=== PATIENT | male | born 1935 | race Caucasian/White ===

== ENCOUNTER → 2016-12-05 | Outpatient (CLI) | payer MEDICARE ==
[~2016-12-05] MED LIST: /GLIM2TA; AMBI5TAB; ASPI81TA63; ATEN25TA; BABY81CH; FURO20TA2; GLUC850T; NITR0.4S; SIMV80TA
[2016-12-05 07:18] LABS: CALCIUM LEVEL 8.6 MG/DL (8.8-10.2); CREATININE FOR GFR 1.72 MG/DL (0.70-1.30); POTASSIUM SERUM 4.3 MEQ/L (3.5-5.1)
== END ==
LOC: M LAB 06:23
PROVIDERS: ATTEND Internal Medicine Cardiovascular Disease
DX: N28.9 Disorder of kidney and ureter, unspecified (principal); I10 Essential (primary) hypertension

== ENCOUNTER → 2017-01-23 | Outpatient (CLI) | payer MEDICARE, OTHER ==
[2017-01-23 06:37] LABS: BASO % 0.5 % (0.0-1.0); EOS # 0.1 K/mm3 (0.0-0.50); LARGE UNSTAINED CELL # 0.2 K/mm3 (0.0-0.4); LARGE UNSTAINED CELL % 2.4 % (0.0-4.0); LYMPH # 1.1 K/mm3 (1.5-4.5); LYMPH % 13.9 % (24.0-44.0); MEAN CORPUSCULAR HGB CONC 32.5 g/dl (32.0-36.5); MEAN CORPUSCULAR VOLUME 89.3 fl (80.0-96.0); MONO # 0.6 K/mm3 (0.0-0.8); MONO % 8.9 % (0.0-5.0); NEUTROPHILS % 72.2 % (36.0-66.0); PLATELET COUNT, AUTOMATED 178 k/mm3 (150-450); RED CELL DISTRIBUTION WIDTH 14.7 % (11.5-14.5); WHITE BLOOD COUNT 6.9 K/mm3 (4.0-10.0)
[2017-01-23 07:04] LABS: MAGNESIUM LEVEL 2.2 MG/DL (1.8-2.4); PERCENT SATURATION 14.8 % (19.7-37.4)
== END ==
LOC: M LAB 06:06
PROVIDERS: ATTEND Family Medicine
DX: D50.9 Iron deficiency anemia, unspecified (principal); E11.9 Type 2 diabetes mellitus without complications; I50.30 Unspecified diastolic (congestive) heart failure; E55.9 Vitamin D deficiency, unspecified

== ENCOUNTER → 2017-06-05 | Outpatient (CLI) | payer MEDICARE, OTHER ==
[2017-06-05 06:57] LABS: BASO % 0.4 % (0.0-1.0); EOS # 0.2 K/mm3 (0.0-0.50); EOS % 2.6 % (0.0-3.0); LARGE UNSTAINED CELL # 0.2 K/mm3 (0.0-0.4); LARGE UNSTAINED CELL % 2.4 % (0.0-4.0); LYMPH # 1.2 K/mm3 (1.5-4.5); LYMPH % 14.5 % (24.0-44.0); MEAN CORPUSCULAR HEMOGLOBIN 28.8 pg (27.0-33.0); MEAN CORPUSCULAR HGB CONC 32.6 g/dl (32.0-36.5); MEAN CORPUSCULAR VOLUME 88.3 fl (80.0-96.0); MONO # 0.7 K/mm3 (0.0-0.8); MONO % 9.5 % (0.0-5.0); NEUTROPHILS # 5.1 K/mm3 (1.8-7.7); NEUTROPHILS % 70.5 % (36.0-66.0); PLATELET COUNT, AUTOMATED 185 k/mm3 (150-450); RED CELL DISTRIBUTION WIDTH 15.2 % (11.5-14.5); WHITE BLOOD COUNT 7.2 K/mm3 (4.0-10.0)
[2017-06-05 07:26] LABS: ALBUMIN 3.6 GM/DL (3.2-5.2); ALBUMIN/GLOBULIN RATIO 1.16 (1.00-1.93); BILIRUBIN,TOTAL 0.7 MG/DL (0.2-1.0); CALCIUM LEVEL 8.7 MG/DL (8.8-10.2); CREATININE FOR GFR 1.4 MG/DL (0.70-1.30); GLOMERULAR FILTRATION RATE 51.9 (>35); PERCENT SATURATION 12.5 % (19.7-37.4); POTASSIUM SERUM 4.1 MEQ/L (3.5-5.1); TOTAL PROTEIN 6.7 GM/DL (6.4-8.2)
== END ==
LOC: M LAB 06:09
PROVIDERS: ATTEND Family Medicine
DX: N18.3 Chronic kidney disease, stage 3 (moderate) (principal); E11.9 Type 2 diabetes mellitus without complications

== ENCOUNTER → 2017-06-12 | Outpatient (REF) | payer OTHER | LOC: M SFHCPLAZ 13:30 | PROVIDERS: ATTEND Family Medicine | DX: N40.1 Benign prostatic hyperplasia with lower urinary tract symptoms (principal) ==

== ENCOUNTER → 2018-01-24 | Outpatient (CLI) | payer OTHER ==
[2018-01-24 07:06] LABS: BASO % 0.3 % (0.0-1.0); EOS # 0.2 10^3/uL (0.0-0.50); EOS % 2.5 % (0.0-3.0); HEMATOCRIT 37.9 % (42.0-52.0); IMMATURE GRANULOCYTE % 0.3 % (0-3.0); LYMPH # 1.2 10^3/uL (1.5-4.5); LYMPH % 18.1 % (24.0-44.0); MEAN CORPUSCULAR HGB CONC 31.7 g/dl (32.0-36.5); MEAN CORPUSCULAR VOLUME 91.5 fl (80.0-96.0); MONO # 0.9 10^3/uL (0.0-0.8); MONO % 13.8 % (0.0-5.0); NEUTROPHILS # 4.2 10^3/uL (1.8-7.7); PLATELET COUNT, AUTOMATED 157 10^3/uL (150-450); RED BLOOD COUNT 4.14 10^6/uL (4.30-6.10); WHITE BLOOD COUNT 6.4 10^3/uL (4.0-10.0)
[2018-01-24 07:13] LABS: ESTIMATED AVERAGE GLUCOSE 174 MG/DL (60-110); HEMOGLOBIN A1c 7.7 %
[2018-01-24 07:24] LABS: C REACTIVE PROTEIN QUANTITATIV 0.39 MG/DL (0.00-0.30); CHOLESTEROL LEVEL 116 MG/DL (<200); CHOLESTEROL RISK RATIO 2.761 (<5); CPK CREATINE PHOSPHOKINASE 88 U/L (39-308); FERRITIN 35 NG/ML (26-388); HDL CHOLESTEROL 42 MG/DL (>40); IRON (FE) 52 UG/DL (65-175); LDL CHOLESTEROL 54.2 MG/DL (<100); NON-HDL-C 74 MG/DL; PERCENT SATURATION 14.2 % (19.7-50.0); PSA SCREENING 1.21 NG/ML (< 4.0); TOTAL IRON BINDING CAPACITY 367 UG/DL (250-450); TRIGLYCERIDES LEVEL 99 MG/DL (<150)
== END ==
LOC: M LAB 06:01
DX: D50.9 Iron deficiency anemia, unspecified (principal); E11.9 Type 2 diabetes mellitus without complications; N40.1 Benign prostatic hyperplasia with lower urinary tract symptoms
CPT/HCPCS: 82550

== ENCOUNTER → 2018-02-28 | Outpatient (REF) | payer OTHER | LOC: M SFHCLERA 09:35 | DX: L57.0 Actinic keratosis (principal) | CPT/HCPCS: 88305 ==

== ENCOUNTER → 2018-05-06 | Outpatient (CLI) | payer OTHER ==
[2018-05-06 06:43] LABS: BASO % 0.2 % (0.0-1.0); EOS # 0.1 10^3/uL (0.0-0.50); EOS % 1.4 % (0.0-3.0); HEMATOCRIT 36.7 % (42.0-52.0); HEMOGLOBIN 11.9 g/dl (13.5-17.5); IMMATURE GRANULOCYTE % 0.5 % (0-3.0); LYMPH # 1.3 10^3/uL (1.5-4.5); LYMPH % 15.5 % (24.0-44.0); MEAN CORPUSCULAR HEMOGLOBIN 29.2 pg (27.0-33.0); MEAN CORPUSCULAR HGB CONC 32.4 g/dl (32.0-36.5); MEAN CORPUSCULAR VOLUME 90.2 fl (80.0-96.0); MONO # 0.7 10^3/uL (0.0-0.8); MONO % 8.9 % (0.0-5.0); NEUTROPHILS # 5.9 10^3/uL (1.8-7.7); NEUTROPHILS % 73.5 % (36.0-66.0); PLATELET COUNT, AUTOMATED 169 10^3/uL (150-450); RED BLOOD COUNT 4.07 10^6/uL (4.30-6.10); RED CELL DISTRIBUTION WIDTH 16.2 % (11.5-14.5); RETIC HEMOGLOBIN EQUIVALENT 31.4 pg (24-36); RETICULOCYTE # 62.3 10^9/L (17-77); RETICULOCYTE % 1.5 % (0.5-1.5); WHITE BLOOD COUNT 8.1 10^3/uL (4.0-10.0)
[2018-05-06 07:06] LABS: ALBUMIN 3.4 GM/DL (3.2-5.2); ALBUMIN/GLOBULIN RATIO 0.94 (1.00-1.93); ALKALINE PHOSPHATASE 79 U/L (45-117); ALT/SGPT 23 U/L (12-78); ANION GAP 7 MEQ/L (8-16); AST/SGOT 15 U/L (7-37); BILIRUBIN,TOTAL 0.9 MG/DL (0.2-1.0); BLOOD UREA NITROGEN 33 MG/DL (7-18); CALCIUM LEVEL 8.9 MG/DL (8.8-10.2); CARBON DIOXIDE LEVEL 30 MEQ/L (21-32); CHLORIDE LEVEL 106 MEQ/L (98-107); CREATININE FOR GFR 1.53 MG/DL (0.70-1.30); GLOMERULAR FILTRATION RATE 46.7 (>35); GLUCOSE, FASTING 108 MG/DL (70-100); MAGNESIUM LEVEL 2.1 MG/DL (1.8-2.4); POTASSIUM SERUM 3.7 MEQ/L (3.5-5.1); SODIUM LEVEL 143 MEQ/L (136-145)
[2018-05-06 10:41] LABS: TOTAL 25(OH) VITAMIN D 27.2 NG/ML (30.0-100.0)
[2018-05-06 10:42] LABS: PTH INTACT 67.5 PG/ML (18.5-88.0)
[2018-05-06 11:33] LABS: ESTIMATED AVERAGE GLUCOSE 171 MG/DL (60-110); HEMOGLOBIN A1c 7.6 %
== END ==
LOC: M LAB 06:06
DX: D50.9 Iron deficiency anemia, unspecified (principal); N18.3 Chronic kidney disease, stage 3 (moderate); E11.9 Type 2 diabetes mellitus without complications
CPT/HCPCS: 83735

== ENCOUNTER → 2018-09-03 | Outpatient (CLI) | payer OTHER ==
[2018-09-03 07:00] LABS: BASO % 0.3 % (0.0-1.0); EOS # 0.1 10^3/uL (0.0-0.50); HEMATOCRIT 38.8 % (42.0-52.0); HEMOGLOBIN 12.3 g/dl (13.5-17.5); IMMATURE GRANULOCYTE % 0.5 % (0-3.0); LYMPH % 15.7 % (24.0-44.0); MEAN CORPUSCULAR HEMOGLOBIN 28.9 pg (27.0-33.0); MEAN CORPUSCULAR HGB CONC 31.7 g/dl (32.0-36.5); MEAN CORPUSCULAR VOLUME 91.1 fl (80.0-96.0); MONO # 0.9 10^3/uL (0.0-0.8); MONO % 13.4 % (0.0-5.0); NEUTROPHILS # 4.5 10^3/uL (1.8-7.7); NEUTROPHILS % 68.1 % (36.0-66.0); PLATELET COUNT, AUTOMATED 151 10^3/uL (150-450); RED BLOOD COUNT 4.26 10^6/uL (4.30-6.10); RED CELL DISTRIBUTION WIDTH 15.9 % (11.5-14.5); RETIC HEMOGLOBIN EQUIVALENT 32.3 pg (24-36); RETICULOCYTE # 68.6 10^9/L (17-77); RETICULOCYTE % 1.6 % (0.5-1.5); WHITE BLOOD COUNT 6.6 10^3/uL (4.0-10.0)
[2018-09-03 07:01] LABS: HEMATOCRIT 38.8 % (42.0-52.0)
[2018-09-03 07:15] LABS: ESTIMATED AVERAGE GLUCOSE 177 MG/DL (60-110); HEMOGLOBIN A1c 7.8 %
[2018-09-03 07:32] LABS: ALBUMIN 3.4 GM/DL (3.2-5.2); ALBUMIN/GLOBULIN RATIO 0.97 (1.00-1.93); ALKALINE PHOSPHATASE 88 U/L (45-117); ALT/SGPT 21 U/L (12-78); ANION GAP 7 MEQ/L (8-16); AST/SGOT 17 U/L (7-37); BILIRUBIN,TOTAL 0.8 MG/DL (0.2-1.0); BLOOD UREA NITROGEN 29 MG/DL (7-18); CALCIUM LEVEL 8.4 MG/DL (8.8-10.2); CARBON DIOXIDE LEVEL 31 MEQ/L (21-32); CHLORIDE LEVEL 105 MEQ/L (98-107); CREATININE FOR GFR 1.54 MG/DL (0.70-1.30); GLOMERULAR FILTRATION RATE 46.4 (>35); GLUCOSE, FASTING 106 MG/DL (70-100); SODIUM LEVEL 143 MEQ/L (136-145); TOTAL PROTEIN 6.9 GM/DL (6.4-8.2)
[2018-09-03 08:07] LABS: TOTAL 25(OH) VITAMIN D 93.4 NG/ML (30.0-100.0)
[2018-09-03 10:44] LABS: PRETREATED FOLATE FOR RBCFOL 18.2 NG/ML; RBC FOLATE 985.1 NG/ML (280-791)
== END ==
LOC: M LAB 06:04
DX: D50.9 Iron deficiency anemia, unspecified (principal); N18.3 Chronic kidney disease, stage 3 (moderate); E11.9 Type 2 diabetes mellitus without complications
CPT/HCPCS: 82607

== ENCOUNTER → 2018-11-08 | Outpatient (CLI) | payer OTHER ==
--- NOTE | 2018-11-08 12:37 | REP ---
LEFT TIBIA/FIBULA, FOUR VIEWS: HISTORY: Pain. There is no acute fracture or dislocation. The joint spaces are normal in appearance. An osteophyte is present on the inferior calcaneus. Calcification is present posterior to the calcaneus. This represents tendon calcification. IMPRESSION: There is no acute fracture or dislocation. Electronically Signed by Klever Garcia MD 11/08/2018 12:45 P
== END ==
LOC: M WUC 09:54
PROVIDERS: ATTEND Physician Assistant
DX: M79.662 Pain in left lower leg (principal); M65.862 Other synovitis and tenosynovitis, left lower leg

== ENCOUNTER → 2019-01-22 | Outpatient (CLI) | payer MEDICARE, OTHER ==
[2019-01-22 06:58] LABS: BASO % 0.3 % (0.0-1.0); EOS # 0.2 10^3/uL (0.0-0.50); HEMATOCRIT 39.8 % (42.0-52.0); HEMOGLOBIN 12.8 g/dl (13.5-17.5); LYMPH # 1.1 10^3/uL (1.5-4.5); LYMPH % 14.3 % (24.0-44.0); MEAN CORPUSCULAR HEMOGLOBIN 29.3 pg (27.0-33.0); MEAN CORPUSCULAR HGB CONC 32.2 g/dl (32.0-36.5); MEAN CORPUSCULAR VOLUME 91.1 fl (80.0-96.0); MONO % 13.5 % (0.0-5.0); NEUTROPHILS # 5.1 10^3/uL (1.8-7.7); NEUTROPHILS % 69.5 % (36.0-66.0); PLATELET COUNT, AUTOMATED 156 10^3/uL (150-450); RED BLOOD COUNT 4.37 10^6/uL (4.30-6.10); WHITE BLOOD COUNT 7.4 10^3/uL (4.0-10.0)
[2019-01-22 07:38] LABS: ALBUMIN 3.6 GM/DL (3.2-5.2); BILIRUBIN,TOTAL 0.9 MG/DL (0.2-1.0); CALCIUM LEVEL 8.4 MG/DL (8.8-10.2); CREATININE FOR GFR 1.56 MG/DL (0.70-1.30); GLOMERULAR FILTRATION RATE 45.7 (>35); MAGNESIUM LEVEL 2.3 MG/DL (1.8-2.4); POTASSIUM SERUM 4.2 MEQ/L (3.5-5.1); PROSTATIC SPECIFIC AG MONITOR 1.28 NG/ML (< 4.00); THYROID STIMULATING HORMONE 2.82 uIU/ML (0.358-3.740); TOTAL PROTEIN 7.1 GM/DL (6.4-8.2)
== END ==
LOC: M LAB 06:18
PROVIDERS: ATTEND Family Medicine
DX: N18.3 Chronic kidney disease, stage 3 (moderate) (principal); N40.1 Benign prostatic hyperplasia with lower urinary tract symptoms; E78.2 Mixed hyperlipidemia; D50.9 Iron deficiency anemia, unspecified

== ENCOUNTER → 2019-05-12 | Outpatient (CLI) | payer MEDICARE ==
[~2019-05-12] MED LIST changes: -/GLIM2TA; +AMAR1TAB5
[2019-05-12 06:45] LABS: BASO % 0.3 % (0.0-1.0); EOS # 0.2 10^3/uL (0.0-0.50); EOS % 2.4 % (0.0-3.0); HEMATOCRIT 38.8 % (42.0-52.0); HEMOGLOBIN 12.4 g/dl (13.5-17.5); LYMPH # 0.9 10^3/uL (1.5-4.5); LYMPH % 13.5 % (24.0-44.0); MEAN CORPUSCULAR HEMOGLOBIN 28.9 pg (27.0-33.0); MEAN CORPUSCULAR VOLUME 90.4 fl (80.0-96.0); MONO # 0.9 10^3/uL (0.0-0.8); MONO % 12.9 % (0.0-5.0); NEUTROPHILS # 4.7 10^3/uL (1.8-7.7); NEUTROPHILS % 70.4 % (36.0-66.0); PLATELET COUNT, AUTOMATED 161 10^3/uL (150-450); RED BLOOD COUNT 4.29 10^6/uL (4.30-6.10); WHITE BLOOD COUNT 6.7 10^3/uL (4.0-10.0)
[2019-05-12 07:18] LABS: ALBUMIN 3.5 GM/DL (3.2-5.2); BILIRUBIN,TOTAL 0.8 MG/DL (0.2-1.0); CALCIUM LEVEL 8.5 MG/DL (8.8-10.2); CHOLESTEROL RISK RATIO 3.19 (<5); CREATININE FOR GFR 1.69 MG/DL (0.70-1.30); GLOMERULAR FILTRATION RATE 41.6 (>35); TOTAL PROTEIN 7.2 GM/DL (6.4-8.2)
[2019-05-12 11:43] LABS: PTH INTACT 59.6 PG/ML (18.5-88.0)
== END ==
LOC: M LAB 06:06
PROVIDERS: ATTEND Family Medicine
DX: E53.8 Deficiency of other specified B group vitamins (principal); E78.2 Mixed hyperlipidemia; N18.3 Chronic kidney disease, stage 3 (moderate)

== ENCOUNTER → 2019-11-03 | Outpatient (CLI) | payer MEDICARE ==
[2019-11-03 06:48] LABS: BASO % 0.2 % (0.0-1.0); EOS # 0.2 10^3/uL (0.0-0.5); EOS % 2.4 % (0.0-3.0); HEMATOCRIT 30.2 % (42.0-52.0); LYMPH # 0.8 10^3/uL (1.5-5.0); LYMPH % 11.7 % (24.0-44.0); MEAN CORPUSCULAR HEMOGLOBIN 28.3 pg (27.0-33.0); MEAN CORPUSCULAR HGB CONC 29.8 g/dl (32.0-36.5); MONO # 0.9 10^3/uL (0.0-0.8); MONO % 13.1 % (0.0-5.0); NEUTROPHILS # 4.8 10^3/uL (1.5-8.5); NEUTROPHILS % 72.1 % (36.0-66.0); PLATELET COUNT, AUTOMATED 187 10^3/uL (150-450); RED BLOOD COUNT 3.18 10^6/uL (4.30-6.10); WHITE BLOOD COUNT 6.6 10^3/uL (4.0-10.0)
[2019-11-03 07:02] LABS: HEMOGLOBIN A1c 6.9 %
[2019-11-03 07:28] LABS: ALBUMIN 3.3 GM/DL (3.2-5.2); BILIRUBIN,TOTAL 0.9 MG/DL (0.2-1.0); CALCIUM LEVEL 8.8 MG/DL (8.8-10.2); CREATININE FOR GFR 1.69 MG/DL (0.70-1.30); FREE T4 0.96 NG/DL (0.76-1.46); GLOMERULAR FILTRATION RATE 41.6 (>35); MAGNESIUM LEVEL 2.4 MG/DL (1.8-2.4); POTASSIUM SERUM 4.1 MEQ/L (3.5-5.1); THYROID STIMULATING HORMONE 4.01 uIU/ML (0.358-3.740); TOTAL PROTEIN 6.7 GM/DL (6.4-8.2)
== END ==
LOC: M LAB 06:06
PROVIDERS: ATTEND Family Medicine
DX: E53.8 Deficiency of other specified B group vitamins (principal); E78.2 Mixed hyperlipidemia; N18.3 Chronic kidney disease, stage 3 (moderate); E11.9 Type 2 diabetes mellitus without complications

== ENCOUNTER → 2019-11-06 | Outpatient (REF) | payer MEDICARE ==
[~2019-11-06] MED LIST changes: +ATOR80TA59 PO; +CARV6.25 PO; +COLA100C5 PO; +DRIS50003 PO; +FLOM0.4C39 PO; +FURO40TA2 PO; +GLIM4TAB3 PO; +METF500T13 PO; +MOME0.1O TOP; +NITR4TASL SL; +OXYB10TA2 PO; +PANT40TA3 PO; +POLY150C4 PO; +SERT50TA29 PO; +SIMB1SUS OU; +TIMO0.5S42 OU; +VENO20IN IV; +VITA100018 PO; +VITA50005 PO; +XALA0.007 OU; +XARE15TA PO
[2019-11-06 14:12] LABS: BASO % 0.2 % (0.0-1.0); EOS # 0.2 10^3/uL (0.0-0.5); EOS % 1.9 % (0.0-3.0); HEMATOCRIT 28.4 % (42.0-52.0); HEMOGLOBIN 8.5 g/dl (13.5-17.5); LYMPH % 11.8 % (24.0-44.0); MEAN CORPUSCULAR HEMOGLOBIN 28.2 pg (27.0-33.0); MEAN CORPUSCULAR HGB CONC 29.9 g/dl (32.0-36.5); MEAN CORPUSCULAR VOLUME 94.4 fl (80.0-96.0); MONO # 1.1 10^3/uL (0.0-0.8); NEUTROPHILS # 6.3 10^3/uL (1.5-8.5); NEUTROPHILS % 72.4 % (36.0-66.0); PLATELET COUNT, AUTOMATED 199 10^3/uL (150-450); RED BLOOD COUNT 3.01 10^6/uL (4.30-6.10); WHITE BLOOD COUNT 8.7 10^3/uL (4.0-10.0)
[2019-11-06 14:47] LABS: ALBUMIN 3.6 GM/DL (3.2-5.2); BLOOD UREA NITROGEN 34 MG/DL (7-18); CALCIUM LEVEL 8.3 MG/DL (8.8-10.2); CARBON DIOXIDE LEVEL 28 MEQ/L (21-32); CHLORIDE LEVEL 108 MEQ/L (98-107); CREATININE FOR GFR 1.68 MG/DL (0.70-1.30); GLOMERULAR FILTRATION RATE 41.9 (>35); GLUCOSE, FASTING 81 MG/DL (70-100); IRON (FE) 25 UG/DL (65-175); NT-PRO BNP 1940 PG/ML (<450); PERCENT SATURATION 5.2 % (19.7-50.0); PHOSPHORUS LEVEL 3.6 MG/DL (2.5-4.9); POTASSIUM SERUM 3.7 MEQ/L (3.5-5.1); SODIUM LEVEL 143 MEQ/L (136-145); TOTAL IRON BINDING CAPACITY 481 UG/DL (250-450); TOTAL PROTEIN 7.1 GM/DL (6.4-8.2)
[2019-11-11 11:41] LABS: ALBUMIN % 56.3 % (55.8-66.1); ALPHA-1-GLOBULIN % 5.3 % (2.9-4.9); ALPHA-1-GLOBULINS 0.38 GM/DL (0.17-0.41); ALPHA-2-GLOBULINS 0.92 GM/DL (0.42-0.99); ALPHA-2-GLOBULINS % 12.9 % (7.1-11.8); BETA-1-GLOBULINS 0.51 GM/DL (0.28-0.60); BETA-1-GLOBULINS % 7.2 % (4.7-7.2); BETA-2-GLOBULINS 0.36 GM/DL (0.19-0.55); BETA-2-GLOBULINS % 5.1 % (3.2-6.5); GAMMA GLOBULIN % 13.2 % (11.1-18.8); GAMMA GLOBULINS 0.94 GM/DL (0.65-1.58)
== END ==
LOC: M SFHCPLAZ 13:23
PROVIDERS: ATTEND Family Medicine
DX: D50.9 Iron deficiency anemia, unspecified (principal); I50.30 Unspecified diastolic (congestive) heart failure
CPT/HCPCS: 36415; 80069; 83010; 83550; 83880; 84165; 85025; 85046; 86335; G0463

== ENCOUNTER 2019-11-07 09:03 | Outpatient (CLI) | payer MEDICARE ==
[2019-11-07] VITALS (7 sets, daily range): BP systolic 112–147; BP diastolic 58–65
[~2019-11-07 09:03] MED LIST changes: -ATOR80TA59 PO; -CARV6.25 PO; -COLA100C5 PO; -DRIS50003 PO; -FLOM0.4C39 PO; -FURO40TA2 PO; -GLIM4TAB3 PO; -METF500T13 PO; -MOME0.1O TOP; -NITR4TASL SL; -OXYB10TA2 PO; -PANT40TA3 PO; -POLY150C4 PO; -SERT50TA29 PO; -SIMB1SUS OU; -TIMO0.5S42 OU; -VENO20IN IV; -VITA100018 PO; -VITA50005 PO; -XALA0.007 OU; -XARE15TA PO
[2019-11-07] MEDS ORDERED: IRON SUCROSE 25 MG in NS 25 ML IV ONE (10:00)
[2019-11-07] MEDS ORDERED: IRON SUCROSE 475 MG in NS 250 ML IV ONE (11:00)
== END 2019-11-07 16:10 | disposition home or self-care (01) ==
LOC: M OPCLI4PV 09:03 → M MSPAV 09:04 → M OPCLI4PV 16:10
PROVIDERS: ATTEND Family Medicine
DX: D50.9 Iron deficiency anemia, unspecified (principal)

== ENCOUNTER 2019-11-10 14:03 | Inpatient (IN) | payer MEDICARE ==
[~2019-11-10] VITALS: Ht 172.7 cm; Wt 96.1 kg
[~2019-11-10 14:03] MED LIST changes: -ATOR80TA59 PO; -CARV6.25 PO; -COLA100C5 PO; -DRIS50003 PO; -FLOM0.4C39 PO; -FURO40TA2 PO; -GLIM4TAB3 PO; -METF500T13 PO; -MOME0.1O TOP; -NITR4TASL SL; -OXYB10TA2 PO; -PANT40TA3 PO; -POLY150C4 PO; -SERT50TA29 PO; -SIMB1SUS OU; -TIMO0.5S42 OU; -VENO20IN IV; -VITA100018 PO; -VITA50005 PO; -XALA0.007 OU; -XARE15TA PO
[2019-11-10 14:46] LABS: BASO % 0.2 % (0.0-1.0); EOS # 0.2 10^3/uL (0.0-0.5); EOS % 2.2 % (0.0-3.0); HEMATOCRIT 26.1 % (42.0-52.0); HEMOGLOBIN 7.7 g/dl (13.5-17.5); LYMPH # 1.1 10^3/uL (1.5-5.0); LYMPH % 12.3 % (24.0-44.0); MEAN CORPUSCULAR HEMOGLOBIN 28.4 pg (27.0-33.0); MEAN CORPUSCULAR HGB CONC 29.5 g/dl (32.0-36.5); MEAN CORPUSCULAR VOLUME 96.3 fl (80.0-96.0); MONO # 1.2 10^3/uL (0.0-0.8); MONO % 14.2 % (0.0-5.0); NEUTROPHILS # 6.1 10^3/uL (1.5-8.5); NEUTROPHILS % 69.9 % (36.0-66.0); PLATELET COUNT, AUTOMATED 210 10^3/uL (150-450); RED BLOOD COUNT 2.71 10^6/uL (4.30-6.10); WHITE BLOOD COUNT 8.7 10^3/uL (4.0-10.0)
[2019-11-10 14:50] LABS: INR 1.71; PROTHROMBIN TIME 19.8 SECONDS (11.8-14.0)
[2019-11-10 14:51] LABS: PARTIAL THROMBOPLASTIN TIME 38.3 SECONDS (25.0-38.4)
[2019-11-10 15:00] LABS: ALBUMIN 3.5 GM/DL (3.2-5.2); ALT/SGPT 15 U/L (12-78); BILIRUBIN,DIRECT 0.3 MG/DL (0.0-0.2); BILIRUBIN,TOTAL 0.7 MG/DL (0.2-1.0); CK-MB VALUE MASS 1.8 NG/ML (<3.6); CPK CREATINE PHOSPHOKINASE 112 U/L (39-308); MB/CK RELATIVE INDEX 1.61 (< OR =4); TOTAL PROTEIN 6.9 GM/DL (6.4-8.2); TROPONIN I < 0.02 NG/ML (< 0.10)
--- NOTE | 2019-11-10 15:00 | REP ---
Clinical: Gastrointestinal bleed . Comparison: 08/30/2017 . Findings: The mediastinum and cardiac silhouette are stable. Cardiomegaly is again appreciated along with evidence for prior sternotomy and CABG. The lung thorpe demonstrate chronic changes without acute consolidation, effusion, or pneumothorax. Skeletal structures are intact. Impression: No acute cardiopulmonary process appreciated. Electronically Signed by Shiv Calderon MD 11/10/2019 02:51 P
[2019-11-10] MEDS ORDERED: XALA0.007 OU (15:16)
[2019-11-10] MEDS ORDERED: OXYB10TA2 PO (15:16)
[2019-11-10] MEDS ORDERED: METF500T13 PO (15:16)
[2019-11-10] MEDS ORDERED: SERT50TA29 PO (15:16)
[2019-11-10] MEDS ORDERED: PANT40TA3 PO (15:16)
[2019-11-10] MEDS ORDERED: VENO20IN IV (15:16)
[2019-11-10] MEDS ORDERED: FURO40TA2 PO ×2 (15:16)
[2019-11-10] MEDS ORDERED: XARE15TA PO (15:16)
[2019-11-10] MEDS ORDERED: COLA100C5 PO (15:16)
[2019-11-10] MEDS ORDERED: MOME0.1O TOP (15:16)
[2019-11-10] MEDS ORDERED: CARV6.25 PO (15:16)
[2019-11-10] MEDS ORDERED: VITA100018 PO (15:16)
[2019-11-10] MEDS ORDERED: ATOR80TA59 PO (15:16)
[2019-11-10] MEDS ORDERED: TIMO0.5S42 OU (15:16)
[2019-11-10] MEDS ORDERED: NITR4TASL SL (15:16)
[2019-11-10] MEDS ORDERED: SIMB1SUS OU (15:16)
[2019-11-10] MEDS ORDERED: FLOM0.4C39 PO (15:16)
[2019-11-10] MEDS ORDERED: POLY150C4 PO (15:16)
[2019-11-10] MEDS ORDERED: VITA50005 PO (15:16)
[2019-11-10] MEDS ORDERED: GLIM4TAB3 PO (15:16)
[2019-11-10] MEDS ORDERED: DRIS50003 PO (15:16)
[2019-11-10 16:00] VITALS: BP 159/78
[2019-11-10] MEDS ORDERED: DEXTROSE 50% 50 ML SYRINGE IV PRN (17:00)
[2019-11-10] MEDS ORDERED: GLUCAGON FOR INJ 1 MG VIAL (J1610) SC PRN (17:00)
[2019-11-10] MEDS ORDERED: GLUCOSE 4 GM CHEW TABLET PO PRN (17:00)
--- NOTE | 2019-11-10 17:03 | HPEPDOC ---
[facility] Medical History & Physical Date of Admission Nov 10, 2019 Date of Service: Nov 10, 2019 Attending Physician: SUNDAY SALCEDO MD History and Physical CHIEF COMPLAINT: Shortness of breath, bloody stools HISTORY OF PRESENT ILLNESS: Romeo Diallo is an 84 YO M with history of CAD s/p several stents, CABG and known iron deficiency anemia who presents with several months lethargy, shortness of breath, lightheadedness, weakness and dizziness, found to have anemia with hemoglobin of 7.7 and sent to the ED by his primary care physician, Dr. Monique. He and his report intermittent constipation and diarrhea when he was first prescribed iFerex oral iron supplementation, and once he stopped taking this medicine he got diarrhea. He denies any bloody or black tarry stools. He has not had any bloody vomit or has not coughed up any blood. He had his most recent iron transfusion on 11/07/2019. Prior to that infusion, his iron level was 25. His last EGD/colonoscopy was in 2014 and was normal. He did undergo a capsule endoscopy in [address] Biggs in [place], which was also found to be normal. PAST MEDICAL HISTORY: 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-Dr. Riggs T2DM c nephropathy hypertension/hypertensive heart disease/CHF, diastolic, chronic-mod LVH, normal LVEF, mild /MR, mild PHTH, severe LAE by 04/2019 TTE-Slezka anemia, secondary to iron deficiency, B12 deficiency hyperlipidemia 2B history of nicotine addiction-November 2004 FEV1 75% normal BPH with LUTS obesity constipation, chronic atrial flutter, aymptomatic, detected 03/10/2013 OV with Plavix changed to Xarelto/04/2013 Holter c SVT runs to 155, longest 8 beats ALBERT, severe 02/2015 NPSG c API 26-Sears adenomatous polyp, mild duodenitis at bulb (not biopsied), grade III hemorrhoid by EGD/colon-09/2015 Landon CKD stage 3-08/2015 normal B renal US x peak systolic P on R not meeting criteria of SHONDA PAST SURGICAL HISTORY: tonsillectomy 1944 adenoidectomy 1944 L cataract-Armando 07/2012 R cataract-Armando 07/2014 SOCIAL HISTORY: Former smoker, quit >10 years ago, no alcohol, lives with spouse FAMILY HISTORY: Father: Mother: Denies family history of skin cancer 3 sisters from 12/26-02/02 Denies family hx of pancreatic cancer and melanoma ALLERGIES: Please see below. REVIEW OF SYSTEMS: CONSTITUTIONAL: Reports Lightheadedness, dizziness, lethargy HEENT: denies vision changes, no sinus problems, denies any trouble swallowing CARDIOVASCULAR: no palpitations RESPIRATORY: Reports shortness of breath GENITOURINARY: No dysuria MUSCULOSKELETAL: Denies any joint/muscle pain GASTROINTESTINAL: Denies abdominal pain, no nausea/vomiting/diarrhea SKIN: No new rashes or lesions NEUROLOGICAL: No loss of sensation PSYCHIATRIC: Reports normal mood, no delusions or hallucinations ENDOCRINE: No hot/cold intolerance HEMATOLOGIC/LYMPHATIC: No easy bruising, no lumps/bumps ALLERGIC/IMMUNOLOGIC: No sinus symptoms HOME MEDICATIONS: Please see below. PHYSICAL EXAMINATION: VITAL SIGNS: Please see below. GENERAL APPEARANCE: Laying in bed, making jokes, laughing, appears stated age, no acute distress, calm, cooperative HEENT: EOMI, PERRLA, neck is supple with no thyromegaly or lymphadenopathy RESPIRATORY: Lungs are clear to auscultation bilaterally with no adventitious breath sounds appreciated CARDIOVASCULAR: no JVD, irregularly irregular,no murmurs/rubs/gallops ABDOMEN: Soft, nontender to palpation in all four quadrants, no masses/organomegaly EXTREMITIES: There is a long medial scar on the left leg from prior surgery, trace pitting edema in lower extremities bilaterally NEUROLOGICAL: No obvious focal deficits PSYCHIATRIC: normal mood/affect Skin: No rashes or ulcers. LN: No significant cervical or inguinal lymphadenopathy LABORATORY DATA: See below. IMAGING: CXR: Findings: The mediastinum and cardiac silhouette are stable. Cardiomegaly is again appreciated along with evidence for prior sternotomy and CABG. The lung thorpe demonstrate chronic changes without acute consolidation, effusion, or pneumothorax. Skeletal structures are intact. Impression: No acute cardiopulmonary process appreciated. MICROBIOLOGY: Please see below. ASSESSMENT: This is an 84-year-old man with history of CAD and atrial fibrillation on Xarelto presents with several months, lightheadedness, dizziness, shortness of breath, found to be anemic. Status post iron infusion on 11/07/2019. In the ED he was found to have melanotic stools. He will be admitted for blood transfusion and close monitoring. PLAN: 1. Possible GI bleed: patient's vitals stable, fecal occult positive for blood -Case discussed with Dr. Freed (surgery), and no urgent colonoscopy needed at this time. Colonoscopy/EGD can be scheduled on outpatient basis -Will transfuse 2U pRBCs -Recheck H/H tomorrow AM -Vitals Q4H -Holding Xarelto for now -Protonix for UGI protection 2. Iron deficiency anemia: -Last iron studies (last week) demonstrate Iron 25, TIBC 481, Transferrin % sat 5.2. Patient did undergo iron infusion on 11/07/19 -Patient will likely need another iron transfusion which can be done outpatient 3. Atrial fibrillation: -Rate control with Coreg -Holding Xarelto for the time being 4. CHF: -Continue 80mg Lasix qam, 40mg qpm -2g sodium diet 5. DM2: -Holding home metformin, glimepiride -SSI with Hypoglycemic protocol 5. CAD s/p stents and CABG: -stable. Last stent placed >5 years ago 6. BPH: -Continue home flomax 7. HLD: -Continue home Atorvastatin 8. Vit B12 deficiency: -Continue home supplementation DISPO: Pending transfusion, recheck H/H, plan for outpatient EGD/Colonoscopy Vital Signs Vital Signs Date Time Temp Pulse Resp B/P (MAP) Pulse Ox O2 Delivery O2 Flow Rate FiO2 11/10/19 15:58 97.9 64 18 159/79 (105) 100 Room Air Laboratory Data Labs 24H Laboratory Tests 2 11/10/19 14:25: Immature Granulocyte % (Auto) 1.2, Neutrophils (%) (Auto) 69.9H, Lymphocytes (%) (Auto) 12.3L, Monocytes (%) (Auto) 14.2H, Eosinophils (%) (Auto) 2.2, Basophils (%) (Auto) 0.2, Neutrophils # (Auto) 6.1, Lymphocytes # (Auto) 1.1L, Monocytes # (Auto) 1.2H, Eosinophils # (Auto) 0.2, Basophils # (Auto) 0.0, Nucleated Red Blood Cells % (auto) 0.3H, Prothrombin Time 19.8H, Prothromb Time International Ratio 1.71, Activated Partial Thromboplast Time 38.3, Total Bilirubin 0.7, Direct Bilirubin 0.3H, Aspartate Amino Transf (AST/SGOT) 14, Alanine Aminotransferase (ALT/SGPT) 15, Alkaline Phosphatase 91, Total Creatine Kinase 112, Creatine Kinase MB 1.8, Creatine Kinase MB Relative Index 1.61, Troponin I < 0.02, Total Protein 6.9, Albumin 3.5, Albumin/Globulin Ratio 1.03 CBC/BMP Laboratory Tests 11/10/19 14:25 Home Medications Scheduled Atorvastatin Calcium (Atorvastatin Calcium) 80 Mg Tablet, 80 MG PO QHS Brinzolamide/Brimonidine Tart (Simbrinza 1%-0.2% Eye Drops) 8 Ml Drops.susp, 1 DROP OU BID Carvedilol (Carvedilol) 6.25 Mg Tablet, 12.5 MG PO QHS Cyanocobalamin (Vitamin B-12) (Vitamin B-12) 1,000 Mcg Tablet, 1,000 MCG PO DAILY Docusate Sodium (Colace) 100 Mg Capsule, 100 MG PO BID Ergocalciferol (Vitamin D2) (Vitamin D2) 50,000 Units Cap, 50,000 UNITS PO QWEEK TUESDAYS Furosemide (Furosemide) 40 Mg Tablet, 80 MG PO QAM Furosemide (Furosemide) 40 Mg Tablet, 40 MG PO QPM Glimepiride (Glimepiride) 4 Mg Tablet, 8 MG PO DAILY Iron Polysaccharide Complex (Poly-Iron) 150 Mg Capsule, 150 MG PO 3XW MON/SUN/FRI Iron Sucrose Complex (Venofer) 200 Mg/10 Ml Vial, 475 MG IV ONCE Latanoprost (Xalatan) 0.005% 2.5ML Drops, 1 DROP OU QHS Metformin HCl (Metformin HCl) 500 Mg Tablet, 500 MG PO BID Mometasone Furoate (Mometasone Furoate) 15 Gm Oint...g., 1 APLCT TOP DAILY APPLIES TO FACE Oxybutynin Chloride (Oxybutynin Chloride ER) 10 Mg Tab.er.24, 10 MG PO QHS Pantoprazole Sodium (Pantoprazole Sodium) 40 Mg Tablet.dr, 40 MG PO DAILY Rivaroxaban (Xarelto) 15 Mg Tablet, 15 MG PO QHS Sertraline HCl (Sertraline HCl) 50 Mg Tablet, 50 MG PO QHS Tamsulosin HCl (Flomax) 0.4 Mg Capsule, 0.4 MG PO QHS Timolol Maleate (Timoptic) 0.5% 10ML Drops, 1 DROP OU BID Scheduled PRN Nitroglycerin (Nitrostat) 0.4 Mg Tab.subl, 0.4 MG SL Q5MP PRN for CHEST PAIN Allergies Coded Allergies: No Known Drug Allergies (Verified Allergy, Unknown, 11/07/19) A-FIB/CHADSVASC A-FIB History Current/History of A-Fib/PAF?: Yes Current PO Anticoag Therapy: Yes GME ATTESTATION GME ATTESTATION My faculty preceptor for this patient encounter was physically present during the encounter and was fully available. All aspects of the patient interview, examination, medical decision making process, and medical care plan development were reviewed and approved by the faculty preceptor. The faculty preceptor is aware and concurs with the plan as stated in the body of this note and will attest to such by his/her cosignature. ATTENDING NOTE I have personally evaluated and examined the patient. Discussed with residents/students regarding plan of care and agree with the above assessment and plan. GABINO OLIVAS MD Nov 10, 2019 17:03 SUNDAY SALCEDO MD Nov 10, 2019 19:01
[2019-11-10] MEDS: HumaLOG INSULIN (NovoLOG) PER UNIT SC SCH (17:30)
[2019-11-10 17:31] LABS: BLOOD UREA NITROGEN 34 MG/DL (7-18); CALCIUM LEVEL 8.6 MG/DL (8.8-10.2); CARBON DIOXIDE LEVEL 24 MEQ/L (21-32); CHLORIDE LEVEL 106 MEQ/L (98-107); CREATININE FOR GFR 1.76 MG/DL (0.70-1.30); FERRITIN 312 NG/ML (26-388); GLOMERULAR FILTRATION RATE 39.7 (>35); GLUCOSE, FASTING 109 MG/DL (70-100); IRON (FE) 75 UG/DL (65-175); PERCENT SATURATION 16.8 % (19.7-50.0); POTASSIUM SERUM 3.5 MEQ/L (3.5-5.1); SODIUM LEVEL 144 MEQ/L (136-145); TOTAL IRON BINDING CAPACITY 447 UG/DL (250-450)
[2019-11-10] MEDS: FUROSEMIDE 40 MG TAB PO SCH (17:52)
[2019-11-10 18:45] VITALS: BP 146/72
--- NOTE | 2019-11-10 20:00 | ECGEPIP ---
[facility] - ED Test Date: 2019-11-10 Pat Name: RADHA BRODERICK Department: Room: [place] [address] Gender: Male Specimen Technician: : [id number] Requested By: Nj Huang Order Number: [id number] Reading MD: Ramiro Stevenson Measurements Intervals [place] Rate: 57 P: WI: 0 QRS: -22 QRSD: 150 T: 24 QT: 470 QTc: 460 Interpretive Statements ATRIAL FIBRILLATION WITH SLOW VENTRICULAR RESPONSE RIGHT BUNDLE BRANCH BLOCK NO PRIORS FOR COMPARISON Electronically Signed on 11-10-2019 20:00:21 EST by Ramiro Stevenson
[2019-11-10] MEDS ORDERED: LATANOPROST 0.005% OPHTH SOLN 2.5 ML OU SCH (21:00)
[2019-11-10] MEDS ORDERED: ATORVASTATIN 20 MG TAB PO SCH (21:00)
[2019-11-10] MEDS ORDERED: CARVedilol 6.25 MG TAB PO SCH (21:00)
[2019-11-10] MEDS ORDERED: HumaLOG INSULIN (NovoLOG) PER UNIT SC SCH (21:00)
[2019-11-10] MEDS ORDERED: SERTRALINE HCL 50 MG TAB PO SCH (21:00)
[2019-11-10] MEDS ORDERED: TAMSULOSIN 0.4 MG CAP PO SCH (21:00)
[2019-11-10] MEDS ORDERED: oxyBUTYnin *DITROPAN XL* 5 MG TABCR PO SCH (21:00)
[2019-11-10 22:00] VITALS: BP 112/60
[2019-11-10] MEDS: TIMOLOL MALEATE 0.5% OPHTH SOLN 5 ML OU SCH (22:40)
[2019-11-10] MEDS: PANTOPRAZOLE 40MG INJ (PROTONIX) (C9113) IV SCH (22:41)
[2019-11-10] MEDS: DOCUSATE SODIUM 100 MG CAP PO SCH (22:42)
[2019-11-10] MEDS ORDERED: CARVedilol 3.125 MG TAB PO ONE (23:00)
[2019-11-10 23:05] VITALS: BP 112/60
[2019-11-11] VITALS (7 sets, daily range): BP systolic 122–147; BP diastolic 62–73
[2019-11-11 06:57] LABS: HEMATOCRIT 29.3 % (42.0-52.0); HEMOGLOBIN 8.8 g/dl (13.5-17.5)
[2019-11-11 06:59] LABS: HEMATOCRIT 29.4 % (42.0-52.0); HEMOGLOBIN 8.9 g/dl (13.5-17.5); MEAN CORPUSCULAR HEMOGLOBIN 28.7 pg (27.0-33.0); MEAN CORPUSCULAR HGB CONC 30.3 g/dl (32.0-36.5); MEAN CORPUSCULAR VOLUME 94.8 fl (80.0-96.0); PLATELET COUNT, AUTOMATED 183 10^3/uL (150-450); WHITE BLOOD COUNT 7.6 10^3/uL (4.0-10.0)
[2019-11-11] MEDS: HumaLOG INSULIN (NovoLOG) PER UNIT SC SCH ×3 (07:30→17:18)
[2019-11-11 07:32] LABS: CALCIUM LEVEL 8.4 MG/DL (8.8-10.2); CREATININE FOR GFR 1.62 MG/DL (0.70-1.30); GLOMERULAR FILTRATION RATE 43.6 (>35); MAGNESIUM LEVEL 1.9 MG/DL (1.8-2.4)
[2019-11-11] MEDS: PANTOPRAZOLE 40MG INJ (PROTONIX) (C9113) IV SCH (08:13)
[2019-11-11] MEDS: DOCUSATE SODIUM 100 MG CAP PO SCH (08:13)
[2019-11-11] MEDS: TIMOLOL MALEATE 0.5% OPHTH SOLN 5 ML OU SCH (08:13)
[2019-11-11] MEDS ORDERED: POTASSIUM CHLORIDE 10 MEQ SR TABLET PO ONE (08:15)
--- NOTE | 2019-11-11 08:26 | IPNPDOC ---
Subjective Date Seen The patient was seen on 11/11/19. Subjective Chief Complaint/HPI GIB, anemia Events since last encounter admitted overnight for anemia. Received transfusion of 2 units RBC. + stool for occult blood. Surgeon advised outpatient eval. Anti-coagulants currently on hold. Constitutional: Denies: Chills, Fever, Night Sweats Pulmonary: Denies: Dyspnea, Cough Cardiovascular: Denies: Chest Pain, Palpitations, Orthopnea, Paroxysmal Noc. Dyspnea, Lt Headedness Gastrointestinal: Denies: Nausea, Vomiting, Abdominal Pain, Diarrhea, Constipation Objective Physical Examination General Exam: Positive: Alert, No Acute Distress Eye Exam: Positive: PERRLA, Conjunctiva & lids normal, EOMI; Negative: Sclera icteric Chest Exam: Positive: Clear to auscultation, Normal air movement Heart Exam: Positive: Rate Normal, Regular Rhythm, Normal S1, Normal S2; Negative: Murmurs, Rubs Telemetry: Positive: No significant arrhythmia Psych Exam: Positive: Mental status NL, Mood NL, Oriented x 3 Assessment /Plan Problems (1) Anemia Status: Acute Problem Specific Plan: Monitor Clinically Problem Text: repeat H/H at 1200. if stable, consider DC home with outpatient f/u for EGD/colonoscopy. (2) GI bleeding Status: Acute Problem Specific Plan: Monitor Clinically Problem Text: repeat H/H at 1200. if stable, consider DC home with outpatient f/u for EGD/colonoscopy. Pantoprazole for GI prophylaxis (3) Hypokalemia Status: Acute Problem Specific Plan: Monitor Clinically, Repeat Labs Problem Text: potassium 40 meq po x 1. repeat BMP at 1200 today. if stable, DC home. continue telemetry (4) CAD (coronary artery disease) Status: Chronic Response to Treatment: Stable (5) CKD (chronic kidney disease) stage 3, GFR 30-59 ml/min Status: Chronic Response to Treatment: Stable Problem Text: baseline Cr 1.6 (6) ALBERT (obstructive sleep apnea) Status: Chronic Response to Treatment: Stable (7) Diabetes mellitus Status: Chronic Response to Treatment: Stable Problem Text: on sliding scale for glucose control. Last Hgba1c: 6.9 10/2019 (8) HTN (hypertension) Status: Chronic Response to Treatment: Stable (9) Iron deficiency anemia Status: Chronic Problem Text: received iron infusion 11/07/2019 Plan/VTE VTE Prophylaxis Ordered?: No VTE Exclusion Pharmacological: Active Bleeding VS, I&O, 24H, Fishbone Vital Signs/I&O Vital Signs Date Time Temp Pulse Resp B/P (MAP) Pulse Ox O2 Delivery O2 Flow Rate FiO2 11/11/19 06:00 96.8 61 18 147/68 (94) 98 11/11/19 04:15 Room Air I&O- Last 24 Hours up to 6 AM 11/11/19 06:00 Intake Total 1131 ml Balance 1131 ml Laboratory Data 24H LABS Laboratory Tests 2 11/10/19 14:25: Immature Granulocyte % (Auto) 1.2, Neutrophils (%) (Auto) 69.9H, Lymphocytes (%) (Auto) 12.3L, Monocytes (%) (Auto) 14.2H, Eosinophils (%) (Auto) 2.2, Basophils (%) (Auto) 0.2, Neutrophils # (Auto) 6.1, Lymphocytes # (Auto) 1.1L, Monocytes # (Auto) 1.2H, Eosinophils # (Auto) 0.2, Basophils # (Auto) 0.0, Nucleated Red Blood Cells % (auto) 0.3H, Prothrombin Time 19.8H, Prothromb Time International Ratio 1.71, Activated Partial Thromboplast Time 38.3, Anion Gap 14, Glomerular Filtration Rate 39.7, Calcium Level 8.6L, Iron Level 75, Total Iron Binding Capacity 447, Transferrin % Saturation 16.8L, Ferritin 312, Total Bilirubin 0.7, Direct Bilirubin 0.3H, Aspartate Amino Transf (AST/SGOT) 14, Alanine Aminotransferase (ALT/SGPT) 15, Alkaline Phosphatase 91, Total Creatine Kinase 112, Creatine Kinase MB 1.8, Creatine Kinase MB Relative Index 1.61, Troponin I < 0.02, Total Protein 6.9, Albumin 3.5, Albumin/Globulin Ratio 1.03 11/10/19 17:51: Bedside Glucose (Misc Panel) 94 11/10/19 22:08: Bedside Glucose (Misc Panel) 129H 11/11/19 05:28: Nucleated Red Blood Cells % (auto) 0.0, Anion Gap 9, Glomerular Filtration Rate 43.6, Calcium Level 8.4L, Magnesium Level 1.9 CBC/BMP Laboratory Tests 11/10/19 14:25 11/11/19 05:28 aRdha Ortiz CLAIMS VICE PRESIDENT Nov 11, 2019 08:26
[2019-11-11] MEDS ORDERED: FUROSEMIDE 80 MG TAB PO SCH (09:00)
[2019-11-11] MEDS ORDERED: CYANOCOBALAMIN 500 MCG TAB PO SCH (09:00)
[2019-11-11 12:28] LABS: HEMATOCRIT 28.4 % (42.0-52.0); HEMOGLOBIN 8.8 g/dl (13.5-17.5)
[2019-11-11 12:49] LABS: CALCIUM LEVEL 8.3 MG/DL (8.8-10.2); CREATININE FOR GFR 1.67 MG/DL (0.70-1.30); GLOMERULAR FILTRATION RATE 42.1 (>35); POTASSIUM SERUM 3.2 MEQ/L (3.5-5.1)
[2019-11-11] MEDS: FUROSEMIDE 40 MG TAB PO SCH (17:18)
== END 2019-11-11 17:55 | disposition home or self-care (01) | DRG 812 ==
LOC: M ED 14:03 → M ED INP 15:54 → M MSPAV 18:44
PROVIDERS: ADMIT Student in an Organized Health Care Education/Training Program; ATTEND Family Medicine
PROC: 30233N1 Transfusion of Nonautologous Red Blood Cells into Peripheral Vein, Percutaneous Approach (ICD-10-PCS; principal; 2019-11-10)
DX: D50.9 Iron deficiency anemia, unspecified (principal); K92.2 Gastrointestinal hemorrhage, unspecified; I50.32 Chronic diastolic (congestive) heart failure; I48.92 Unspecified atrial flutter; I25.10 Atherosclerotic heart disease of native coronary artery without angina pectoris; E11.22 Type 2 diabetes mellitus with diabetic chronic kidney disease; I11.0 Hypertensive heart disease with heart failure; E78.5 Hyperlipidemia, unspecified; D51.9 Vitamin B12 deficiency anemia, unspecified; E66.9 Obesity, unspecified; K59.09 Other constipation; N40.1 Benign prostatic hyperplasia with lower urinary tract symptoms; I48.91 Unspecified atrial fibrillation; E87.6 Hypokalemia; G47.33 Obstructive sleep apnea (adult) (pediatric); N18.3 Chronic kidney disease, stage 3 (moderate); Z95.5 Presence of coronary angioplasty implant and graft; Z98.41 Cataract extraction status, right eye; Z98.42 Cataract extraction status, left eye; Z87.891 Personal history of nicotine dependence; Z79.84 Long term (current) use of oral hypoglycemic drugs; Z79.01 Long term (current) use of anticoagulants; Z79.899 Other long term (current) drug therapy; Z68.32 Body mass index [BMI] 32.0-32.9, adult

== ENCOUNTER → 2019-11-10 | Outpatient (REF) | payer MEDICARE ==
[~2019-11-10] MED LIST changes: +ATOR80TA59 PO; +CARV6.25 PO; +COLA100C5 PO; +DRIS50003 PO; +FLOM0.4C39 PO; +FURO40TA2 PO; +GLIM4TAB3 PO; +METF500T13 PO; +MOME0.1O TOP; +NITR4TASL SL; +OXYB10TA2 PO; +PANT40TA3 PO; +POLY150C4 PO; +SERT50TA29 PO; +SIMB1SUS OU; +TIMO0.5S42 OU; +VENO20IN IV; +VITA100018 PO; +VITA50005 PO; +XALA0.007 OU; +XARE15TA PO
[2019-11-10 12:25] LABS: BASO % 0.3 % (0.0-1.0); EOS # 0.1 10^3/uL (0.0-0.5); EOS % 1.9 % (0.0-3.0); HEMATOCRIT 25.3 % (42.0-52.0); HEMOGLOBIN 7.5 g/dl (13.5-17.5); LYMPH # 0.7 10^3/uL (1.5-5.0); MEAN CORPUSCULAR HGB CONC 29.6 g/dl (32.0-36.5); MEAN CORPUSCULAR VOLUME 97.7 fl (80.0-96.0); MONO # 0.9 10^3/uL (0.0-0.8); MONO % 12.4 % (0.0-5.0); NEUTROPHILS # 5.5 10^3/uL (1.5-8.5); NEUTROPHILS % 74.6 % (36.0-66.0); PLATELET COUNT, AUTOMATED 185 10^3/uL (150-450); RED BLOOD COUNT 2.59 10^6/uL (4.30-6.10); WHITE BLOOD COUNT 7.4 10^3/uL (4.0-10.0)
[2019-11-10 12:56] LABS: ALBUMIN 3.2 GM/DL (3.2-5.2); CALCIUM LEVEL 8.7 MG/DL (8.8-10.2); CREATININE FOR GFR 1.74 MG/DL (0.70-1.30); GLOMERULAR FILTRATION RATE 40.2 (>35); MAGNESIUM LEVEL 2.1 MG/DL (1.8-2.4); POTASSIUM SERUM 3.6 MEQ/L (3.5-5.1)
== END ==
LOC: M SFHCPLAZ 10:15
PROVIDERS: ATTEND Nurse Practitioner Family
DX: D50.9 Iron deficiency anemia, unspecified (principal)

== ENCOUNTER → 2019-11-16 | Outpatient (CLI) | payer MEDICARE ==
[~2019-11-16] MED LIST changes: +ATOR80TA59 PO; +CARV6.25 PO; +COLA100C5 PO; +DRIS50003 PO; +FLOM0.4C39 PO; +FURO40TA2 PO; +GLIM4TAB3 PO; +METF500T13 PO; +MOME0.1O TOP; +NITR4TASL SL; +OXYB10TA2 PO; +PANT40TA3 PO; +POLY150C4 PO; +SERT50TA29 PO; +SIMB1SUS OU; +TIMO0.5S42 OU; +VENO20IN IV; +VITA100018 PO; +VITA50005 PO; +XALA0.007 OU; +XARE15TA PO
[2019-11-16 10:45] LABS: HEMOGLOBIN 9.5 g/dl (13.5-17.5)
== END ==
LOC: M LAB 10:04
PROVIDERS: ATTEND Family Medicine
DX: D64.9 Anemia, unspecified (principal)

== ENCOUNTER → 2019-11-17 | Outpatient (CLI) | payer MEDICARE ==
[~2019-11-17] MED LIST changes: -GLIM4TAB3 PO; +GLIM4TAB5 PO; -OXYB10TA2 PO; +OXYB10TA23 PO
[2019-11-17 18:54] LABS: ALBUMIN 3.3 GM/DL (3.2-5.2); CALCIUM LEVEL 8.9 MG/DL (8.8-10.2); CREATININE FOR GFR 1.67 MG/DL (0.70-1.30); GLOMERULAR FILTRATION RATE 42.1 (>35); MAGNESIUM LEVEL 2.4 MG/DL (1.8-2.4); PERCENT SATURATION 12.7 % (19.7-50.0); PHOSPHORUS LEVEL 2.6 MG/DL (2.5-4.9); POTASSIUM SERUM 3.8 MEQ/L (3.5-5.1)
== END ==
LOC: M PLALAB 12:09
PROVIDERS: ATTEND Family Medicine
DX: D50.9 Iron deficiency anemia, unspecified (principal); I50.30 Unspecified diastolic (congestive) heart failure
CPT/HCPCS: 36415; 80069; 83550; 83735; 83880; 85046; G0463

== ENCOUNTER → 2019-11-24 | Outpatient (CLI) | payer MEDICARE ==
[~2019-11-24] MED LIST changes: +GLIM4TAB3 PO; -GLIM4TAB5 PO; +OXYB10TA2 PO; -OXYB10TA23 PO
--- NOTE | 2019-11-24 21:10 | REP ---
Clinical: Iron-deficiency anemia. Technique: For axial noncontrast images from the lung bases to the pubic symphysis with coronal and sagittal re-formations. Findings: Lung bases demonstrate chronic-appearing interstitial changes with mild bronchiectasis and small calcified granulomata. Liver, spleen, pancreas, bilateral adrenal glands and kidneys are essentially normal. Cholelithiasis noted without acute cholecystitis. The enteric system is without obstruction or acute inflammatory process. Normal terminal ileum and appendix identified in the right lower quadrant. Scattered sigmoid diverticula noted without acute diverticulitis. Pelvis demonstrates normal bladder and age appropriate prostate/seminal vesicles. No ascites. No free air. No adenopathy. Atherosclerotic changes to the aorta and vasculature noted without significant aneurysm. Musculoskeletal structures demonstrate degenerative changes without focal abnormality. Impression: 1. Cholelithiasis. 2. Chronic-appearing changes as noted above. 3. No ascites. No free air. No adenopathy. Electronically Signed by Shiv Calderon MD 11/24/2019 09:01 P
== END ==
LOC: M RAD 16:49
PROVIDERS: ATTEND Family Medicine
DX: K80.20 Calculus of gallbladder without 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 (principal); D50.9 Iron deficiency anemia, unspecified

== ENCOUNTER → 2019-12-11 | Outpatient (CLI) | payer MEDICARE ==
[~2019-12-11] MED LIST changes: +E-Z-GAS II EFFERVESCENT PACKET (SODIUM BICARB./CITRIC ACID/SIMETHICONE) As Ordered ONE; +E-Z-HD 98% w/w 340GM SUSP BTL As Ordered ONE; +E-Z-PAQUE 96% w/w SUSP 176GM BTL As Ordered ONE; -GLIM4TAB3 PO; +GLIM4TAB5 PO; -OXYB10TA2 PO; +OXYB10TA23 PO
--- NOTE | 2019-12-12 17:17 | REP ---
Upper GI Air Contrast with SBFT The procedure was performed by OXANA Herrera, under the the direct supervision of Dr. Burrell. The images were reviewed with Dr. Burrell. The cyber analyst film shows no organomegaly or pathological masses. The intestinal gas pattern appears normal. Liquid barium and gas producing crystals were given in the erect position as well as liquid barium in the prone position in order to perform a double contrast upper GI examination. The oral and pharyngeal stages of deglutition were unremarkable. Esophageal transport is efficient and there is no esophagitis, stricture, or mucosal ring noted. There is no hiatal hernia. Gastroesophageal reflux was not visualized throughout the course of the exam. The stomach churchill are normally outlined. The rugal folds are smooth and regular. There is no gastritis, neoplasm, or ulcer disease noted. The duodenal churchill are normally outlined. The mucosal folds are smooth and regular. There is no duodenitis, peptic ulcer disease, or neoplasm noted. The visualized portion of the proximal small bowel appears normal in course and caliber. The barium column was followed through the small bowel to the level of the terminal ileum. Small bowel transit time was approximately 490] minutes. During fluoroscopy gentle palpation shows all loops are freely mobile and pliable. There are no fixed or angulated loops. The small bowel mucosal pattern is normal in course and caliber. There is no transition to set suggest a partial small-bowel obstruction. Spot filming of the terminal ileum shows it to be unremarkable. Impression: 1. Transit time to the terminal ileum was approximately 490 minutes. 0.6 minutes of fluoroscopy time was utilized for this procedure. Some fluoroscopic images are performed with last image hold technology. These images require no additional radiation. Reviewed by OXANA Gonzales 12/12/2019 04:40 P Electronically Signed by Jose Burrell MD 12/12/2019 05:09 P
== END ==
LOC: M RAD 07:50
PROVIDERS: ATTEND Family Medicine
DX: D50.9 Iron deficiency anemia, unspecified (principal)

== ENCOUNTER → 2019-12-23 | Outpatient (CLI) | payer MEDICARE ==
[~2019-12-23] MED LIST changes: -E-Z-GAS II EFFERVESCENT PACKET (SODIUM BICARB./CITRIC ACID/SIMETHICONE) As Ordered ONE; -E-Z-HD 98% w/w 340GM SUSP BTL As Ordered ONE; -E-Z-PAQUE 96% w/w SUSP 176GM BTL As Ordered ONE
[2019-12-23 09:56] LABS: BASO % 0.4 % (0.0-1.0); EOS # 0.2 10^3/uL (0.0-0.5); EOS % 2.3 % (0.0-3.0); HEMATOCRIT 36.8 % (42.0-52.0); HEMOGLOBIN 11.4 g/dl (13.5-17.5); LYMPH # 1.2 10^3/uL (1.5-5.0); LYMPH % 15.2 % (24.0-44.0); MEAN CORPUSCULAR HEMOGLOBIN 28.3 pg (27.0-33.0); MEAN CORPUSCULAR VOLUME 91.3 fl (80.0-96.0); MONO % 13.2 % (0.0-5.0); NEUTROPHILS # 5.4 10^3/uL (1.5-8.5); NEUTROPHILS % 68.3 % (36.0-66.0); PLATELET COUNT, AUTOMATED 160 10^3/uL (150-450); RED BLOOD COUNT 4.03 10^6/uL (4.30-6.10); WHITE BLOOD COUNT 7.9 10^3/uL (4.0-10.0)
[2019-12-23 10:36] LABS: ALBUMIN 3.8 GM/DL (3.2-5.2); BILIRUBIN,TOTAL 0.6 MG/DL (0.2-1.0); CALCIUM LEVEL 9.1 MG/DL (8.8-10.2); CREATININE FOR GFR 1.61 MG/DL (0.70-1.30); TOTAL PROTEIN 7.4 GM/DL (6.4-8.2)
== END ==
LOC: M PLALAB 07:59
PROVIDERS: ATTEND Family Medicine
DX: I50.30 Unspecified diastolic (congestive) heart failure (principal)

== ENCOUNTER → 2020-01-02 | Outpatient (CLI) | payer MEDICARE ==
[2020-01-02 06:39] LABS: BASO % 0.3 % (0.0-1.0); EOS # 0.1 10^3/uL (0.0-0.5); EOS % 2.3 % (0.0-3.0); HEMATOCRIT 36.7 % (42.0-52.0); HEMOGLOBIN 11.4 g/dl (13.5-17.5); LYMPH # 0.8 10^3/uL (1.5-5.0); LYMPH % 13.3 % (24.0-44.0); MEAN CORPUSCULAR HEMOGLOBIN 27.8 pg (27.0-33.0); MEAN CORPUSCULAR HGB CONC 31.1 g/dl (32.0-36.5); MEAN CORPUSCULAR VOLUME 89.5 fl (80.0-96.0); MONO # 0.8 10^3/uL (0.0-0.8); NEUTROPHILS # 4.2 10^3/uL (1.5-8.5); NEUTROPHILS % 70.6 % (36.0-66.0); PLATELET COUNT, AUTOMATED 177 10^3/uL (150-450)
[2020-01-02 06:58] LABS: ALBUMIN 3.6 GM/DL (3.2-5.2); BLOOD UREA NITROGEN 33 MG/DL (7-18); CALCIUM LEVEL 8.9 MG/DL (8.8-10.2); CARBON DIOXIDE LEVEL 32 MEQ/L (21-32); CHLORIDE LEVEL 102 MEQ/L (98-107); CREATININE FOR GFR 1.61 MG/DL (0.70-1.30); GLUCOSE, FASTING 125 MG/DL (70-100); MAGNESIUM LEVEL 2.2 MG/DL (1.8-2.4); NT-PRO BNP 1264 PG/ML (<450); PHOSPHORUS LEVEL 4.1 MG/DL (2.5-4.9); POTASSIUM SERUM 3.5 MEQ/L (3.5-5.1); SODIUM LEVEL 142 MEQ/L (136-145)
[2020-01-02 09:01] LABS: H PYLORI QUALITATIVE IgG NEGATIVE (NEGATIVE)
== END ==
LOC: M LAB 06:04
PROVIDERS: ATTEND Family Medicine
DX: D50.9 Iron deficiency anemia, unspecified (principal)

== ENCOUNTER → 2020-02-25 | Outpatient (REF) | payer MEDICARE ==
[2020-02-25 10:56] LABS: BASO % 0.3 % (0.0-1.0); EOS # 0.2 10^3/uL (0.0-0.5); EOS % 2.1 % (0.0-3.0); HEMATOCRIT 36.7 % (42.0-52.0); HEMOGLOBIN 11.8 g/dl (13.5-17.5); LYMPH # 0.8 10^3/uL (1.5-5.0); LYMPH % 11.3 % (24.0-44.0); MEAN CORPUSCULAR HEMOGLOBIN 28.8 pg (27.0-33.0); MEAN CORPUSCULAR HGB CONC 32.2 g/dl (32.0-36.5); MEAN CORPUSCULAR VOLUME 89.5 fl (80.0-96.0); MONO % 14.4 % (0.0-5.0); NEUTROPHILS # 5.1 10^3/uL (1.5-8.5); NEUTROPHILS % 71.5 % (36.0-66.0); PLATELET COUNT, AUTOMATED 152 10^3/uL (150-450); WHITE BLOOD COUNT 7.1 10^3/uL (4.0-10.0)
[2020-02-25 11:18] LABS: ALBUMIN 3.5 GM/DL (3.2-5.2); CALCIUM LEVEL 8.7 MG/DL (8.8-10.2); CREATININE FOR GFR 1.62 MG/DL (0.70-1.30); GLOMERULAR FILTRATION RATE 43.6 (>35); MAGNESIUM LEVEL 2.3 MG/DL (1.8-2.4); PHOSPHORUS LEVEL 3.6 MG/DL (2.5-4.9)
== END ==
LOC: M SFHCPLAZ 08:19
PROVIDERS: ATTEND Family Medicine
DX: D50.9 Iron deficiency anemia, unspecified (principal)

== ENCOUNTER 2020-04-15 11:03 | Emergency (ER) | payer MEDICARE ==
[~2020-04-15] VITALS: Ht 175.3 cm; Wt 93.2 kg
[2020-04-15] MEDS ORDERED: ONDANSETRON 4MG/2ML VIAL IV ONE (11:30)
--- NOTE | 2020-04-15 11:52 | REP ---
CT study of the cervical spine without contrast: History: Injury in a fall. No comparison study. Technique: Helical scanning is acquired and overlapping 2 mm high resolution axial images were generated and reviewed at bone and soft tissue window settings. Coronal and sagittal multiplanar re-formations images are generated. CT findings: There is no evidence of cervical spine element fracture. No skull base fracture is seen. Cervical vertebral body heights are preserved. Alignment is normal. Facet joints are normally aligned bilaterally at each cervical level on multiplanar re-formations images. There is no evidence of intraspinal or paraspinal hematoma. No extra vertebral abnormality is seen. There are moderate degenerative spondylosis changes in the cervical spine. Osteoarthritic facet changes are noted and degenerative disc disease changes are noted. Posterior osteophytic ridging and diffuse disc bulging contributing to mild central canal stenosis at C6-7. There is left-sided neural foraminal narrowing due to uncovertebral spurring at C5-6. Impression: Moderate degenerative spondylosis changes. Mild central canal stenosis at C6-7 due to discogenic spurring. Otherwise negative CT study of the cervical spine without contrast. No fracture seen. Electronically Signed by Ramon Anaya MD 04/15/2020 11:43 A
--- NOTE | 2020-04-15 12:00 | REP ---
CT BRAIN WITHOUT CONTRAST: CT brain performed without IV contrast. Coronal reconstruction images are performed. There is moderate atrophy. There is no midline shift or mass effect. There are mild periventricular small vessel ischemic changes in the white matter. There is no acute intracranial hemorrhage or extra-axial fluid collection. There is no skull fracture. There are vascular calcifications in the carotid siphons. Visualized mastoid air cells and paranasal sinuses are clear. IMPRESSION: Chronic atrophy and small vessel ischemic changes. No acute intracranial hemorrhage or skull fracture. Electronically Signed by Jose Welch MD 04/15/2020 12:44 P
[2020-04-15] MEDS ORDERED: BOOSTRIX/ADACEL VACCINE (DIPHTH/PERTUSS/ACELL/TETANUS) 0.5ML SYR IM ONE (12:15)
--- NOTE | 2020-04-15 12:16 | REP ---
CT LUMBAR SPINE WITHOUT CONTRAST: HISTORY: Injury in a fall. Comparison is made with CT abdomen pelvis imaging from November 24, 2019. TECHNIQUE: Helical scanning is acquired. Axial 4 mm images are reformatted. Coronal and sagittal MPR images are generated. 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 Incidental note is made of an abdominal aortic aneurysm measuring 3.4 cm in greatest anteroposterior dimension unchanged from the comparison study November 24, 2019. Prominent vascular calcification is noted. No other extra vertebral abnormality is observed. Vertebral body heights are preserved. No vertebral collapse is seen. However, there is a right-sided transverse process fracture visualized at L3. Right L2 transverse processes also fractured. I suspect a fracture of the right transverse process at L4 although this is less clearly depicted. Pedicles and posterior elements are otherwise intact. These transverse process fractures are new when compared with the November 24, 2019 prior study. Osteoarthritic facet sclerosis and hypertrophy is present at the lower lumbar levels, most pronounced at the L4-5. There is a vacuum phenomenon in the L4-5 disc. There is diffuse disc bulging at L4-5 and moderate central canal stenosis is apparent at L4-5 due to disc bulging and facet hypertrophy. At L5-S1, there is a calcification in a diffusely bulging disc. There is right-sided neural foraminal narrowing due to foraminal disc protrusion with calcification and facet hypertrophy. Mild spinal stenosis is noted at L3-4 as well due to diffuse disc bulging and developmentally short pedicles. There is left foraminal narrowing at the L3-4 due to disc bulging. IMPRESSION: Acute nondisplaced fracture of the right transverse process sees and L2, L3, and probably, L4. No other vertebral body fracture is seen. Degenerative spondylosis changes are seen. Spinal stenosis is noted at L3-4 and L4-5. There is left-sided foraminal narrowing L3-4 and right-sided foraminal stenosis at L5-S1. A 3.4 cm abdominal aortic aneurysm is also noted unchanged. Electronically Signed by Ramon Anaya MD 04/15/2020 04:10 P
[2020-04-15 13:15] VITALS: BP 137/57
--- NOTE | 2020-04-16 11:03 | ED PDOC ---
Post-Departure Follow-Up dr bates faxed formal report of ct ls spine for fu Nj Rios MD April 16, 2020 11:03
== END 2020-04-15 13:31 | disposition home or self-care (01) ==
LOC: M ED 11:03 → EDBD 11:03 → M ED 13:31
DX: S32.028A Other fracture of second lumbar vertebra, initial encounter for closed fracture (principal); S32.038A Other fracture of third lumbar vertebra, initial encounter for closed fracture; T14.8XXA Other injury of unspecified body region, initial encounter; W18.39XA Other fall on same level, initial encounter; Z92.89 Personal history of other medical treatment; I13.10 Hypertensive heart and chronic kidney disease without heart failure, with stage 1 through stage 4 chronic kidney disease, or unspecified chronic kidney disease; I48.91 Unspecified atrial fibrillation; E78.5 Hyperlipidemia, unspecified; N18.3 Chronic kidney disease, stage 3 (moderate); F17.210 Nicotine dependence, cigarettes, uncomplicated
CPT/HCPCS: 70450; 72125; 72131; 90471; 90715; 96374; 99284; J2405

== ENCOUNTER → 2020-07-17 | Outpatient (CLI) | payer MEDICARE ==
[~2020-07-17] MED LIST changes: +PANT40TA29 PO; -PANT40TA3 PO
[2020-07-17 11:44] LABS: BASO % 0.3 % (0.0-1.0); EOS # 0.1 10^3/uL (0.0-0.5); EOS % 2.3 % (0.0-3.0); HEMATOCRIT 37.3 % (42.0-52.0); HEMOGLOBIN 11.7 g/dl (13.5-17.5); LYMPH # 0.8 10^3/uL (1.5-5.0); LYMPH % 13.4 % (24.0-44.0); MEAN CORPUSCULAR HEMOGLOBIN 28.6 pg (27.0-33.0); MEAN CORPUSCULAR HGB CONC 31.4 g/dl (32.0-36.5); MEAN CORPUSCULAR VOLUME 91.2 fl (80.0-96.0); MONO # 0.8 10^3/uL (0.0-0.8); MONO % 13.9 % (0.0-5.0); NEUTROPHILS # 4.2 10^3/uL (1.5-8.5); NEUTROPHILS % 69.6 % (36.0-66.0); PLATELET COUNT, AUTOMATED 161 10^3/uL (150-450); RED BLOOD COUNT 4.09 10^6/uL (4.30-6.10); WHITE BLOOD COUNT 6.1 10^3/uL (4.0-10.0)
[2020-07-17 12:26] LABS: HEMOGLOBIN A1c 7.2 %
[2020-07-17 13:01] LABS: ALBUMIN 3.4 GM/DL (3.2-5.2); BILIRUBIN,TOTAL 0.8 MG/DL (0.2-1.0); CALCIUM LEVEL 9.1 MG/DL (8.8-10.2); CREATININE FOR GFR 1.68 MG/DL (0.70-1.30); GLOMERULAR FILTRATION RATE 41.7 (>35); MAGNESIUM LEVEL 2.3 MG/DL (1.8-2.4); POTASSIUM SERUM 3.8 MEQ/L (3.5-5.1); TOTAL PROTEIN 6.7 GM/DL (6.4-8.2)
== END ==
LOC: M WUC 08:17
PROVIDERS: ATTEND Family Medicine
DX: E11.8 Type 2 diabetes mellitus with unspecified complications (principal); E50.9 Vitamin A deficiency, unspecified; N18.3 Chronic kidney disease, stage 3 (moderate); E11.22 Type 2 diabetes mellitus with diabetic chronic kidney disease

== ENCOUNTER → 2020-08-04 | Outpatient (REF) | payer MEDICARE | LOC: M SFHCPLAZ 17:23 | PROVIDERS: ATTEND Family Medicine | DX: L85.9 Epidermal thickening, unspecified (principal) ==

== ENCOUNTER → 2020-12-23 | Outpatient (CLI) | payer MEDICARE ==
[2020-12-23 10:12] LABS: HEMATOCRIT 36.2 % (42.0-52.0); HEMOGLOBIN 11.3 g/dl (13.5-17.5); MEAN CORPUSCULAR HGB CONC 31.2 g/dl (32.0-36.5); MEAN CORPUSCULAR VOLUME 92.8 fl (80.0-96.0); PLATELET COUNT, AUTOMATED 153 10^3/uL (150-450); WHITE BLOOD COUNT 8.1 10^3/uL (4.0-10.0)
[2020-12-23 10:54] LABS: ALBUMIN 3.6 GM/DL (3.2-5.2); BILIRUBIN,TOTAL 1.4 MG/DL (0.2-1.0); CALCIUM LEVEL 8.9 MG/DL (8.8-10.2); CHOLESTEROL RISK RATIO 3.342 (<5); CREATININE FOR GFR 1.77 MG/DL (0.70-1.30); GLOMERULAR FILTRATION RATE 39.3 (>35); POTASSIUM SERUM 4.2 MEQ/L (3.5-5.1); THYROID STIMULATING HORMONE 2.51 uIU/ML (0.358-3.740); THYROXINE (T4) 6.5 UG/DL (4.5-12.0); TOTAL PROTEIN 6.9 GM/DL (6.4-8.2)
== END ==
LOC: M PLALAB 08:37
PROVIDERS: ATTEND Family Medicine
DX: E11.8 Type 2 diabetes mellitus with unspecified complications (principal); D50.9 Iron deficiency anemia, unspecified; N18.30 Chronic kidney disease, stage 3 unspecified

== ENCOUNTER → 2021-01-06 | Outpatient (REF) | payer MEDICARE ==
[2021-01-06 14:25] LABS: ALBUMIN 3.5 GM/DL (3.2-5.2); BILIRUBIN,DIRECT 0.3 MG/DL (0.0-0.2); BILIRUBIN,TOTAL 0.7 MG/DL (0.2-1.0); TOTAL PROTEIN 6.9 GM/DL (6.4-8.2)
== END ==
LOC: M SFHCPLAZ 10:33
PROVIDERS: ATTEND Family Medicine
DX: E11.8 Type 2 diabetes mellitus with unspecified complications (principal)
CPT/HCPCS: 36415; 80076; G0463

== ENCOUNTER 2021-01-09 16:29 | Emergency (ER) | payer MEDICARE ==
[~2021-01-09] VITALS: Ht 172.7 cm; Wt 93.2 kg
--- OUTSIDE RECORDS SUMMARY | 2021-01-09 16:37 | CCD ---
Author Author [facility] Organization [facility] Address Unknown Phone Unavailable Care Team Providers Care Supervisor Telephone Information Name Role Phone Yousif Monique Unavailable PROBLEMS Type Condition ICD9-CM Code [id number] Code Onset Dates Condition S tatus SNOMED Code Notes Problem DM2 (diabetes mellitus, type 2) E11.9 Active 29891424 Problem Essential (primary) hypertension I10 Active 56088009 Problem CKD (chronic kidney disease) stage 3, GFR 30-59 ml/min N18.3 Active 163858238 Problem Overactive bladder N32.81 Active 902021423 Problem Impingement syndrome, shoulder, right M75.41 Ac tive 292119688 Problem Adenomatous polyp of colon D12.6 Active 42339 4006 Problem Vitamin D deficiency E55.9 Active 06942684 Problem Constipation, chronic K59.09 Active 097987962 Problem Prolapsed internal hemorrhoids, grade 3 K64.2 Active 47537241 Problem Anxiety disorder F41.9 Active 736814192 Problem Diastolic CHF I50.30 Active 405210676 Problem Atrial flutter I48.92 Active 3853759 Problem ALBERT (obstructive sleep apnea) G47.33 Active 78 349209 Problem Recurrent sinusitis J32.9 Active 875749355 Problem AK (actinic keratosis) L57.0 Active 334794411 Problem B12 deficiency E53.8 Active 133953339 Problem Diabetes mellitus with complication E11.8 Acti ve 907889940 Problem Iron deficiency anemia, unspecified D50.9 Acti ve 72100007 Problem Calculus of gallbladder without 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 K80.20 Active 99316540 Problem Mixed hyperlipidemia E78.2 Active 233731803 Problem Enlarged prostate with lower urinary tract symptoms N40.1 Active 22932610836362 Problem Seborrheic dermatitis L21.9 Active 22567361 Problem CAD (coronary artery disease) I25.10 Active 53 131672 Problem Prostate cancer screening Z12.5 Active 553042 001 Problem Paroxysmal atrial fibrillation I48.0 Active 2 85892806 ALLERGIES No Known Allergies ENCOUNTERS from 1935 to 2020-10-19 Encounter Location Date Provider [facility] [address] [place] [phone] Sep, 020 Yousif Monique Iron deficiency anemia, unspecified D50.9 IMMUNIZATIONS Vaccine Route Administration Date Status Influenza (Pharmacy Given) Unknown Jul 13, 2020 Admin istered Influenza (Pharmacy Given) Unknown Sep 23, 2018 Admin istered Influenza (18 yrs & older) Flublok IM Intramuscular Aug 12 9 Administered Influenza (High Dose 65 & up) IM Intramuscular Sep 22, 2016 A dministered Pneumococcal Adult 0.5mL (Pneumovax 23) IM Intramuscular Jul Administered Pneumococcal 0.5mL (Prevnar 13) IM Intramuscular Jul 06, 2017 Administered Influenza (High Dose 65 & up) IM Intramuscular Aug 24, 2015 A dministered Pneumococcal 0.5mL (Prevnar 13) IM Intramuscular Oct 06, 2016 Administered Zoster 0.65mL (Zostavax) SC Subcutaneous Dec 24, 2015 Adminis tered Influenza (6mo & up) Fluzone IM Intramuscular Jul 06, 2017 Ad ministered Influenza (6mo & up) Fluzone ID Intradermal Aug 31, 2011 Adm inistered SOCIAL HISTORY Tobacco Use: Social History Observation Description Date Details (start date - stop date) Former Smoker Sex Assigned At : Social History Observation Description Sex Assigned At Unknown Language: Question Answer Notes Languages spoken: Luxembourgish Islam: Question Answer Notes Islam 21 Congregational Sexual Hx: Question Answer Notes Had sex in the last 12 months (vaginal, oral, or anal)? No Have you ever had an STD? No Alcohol Screening: Question Answer Notes Did you have a drink containing alcohol in the past year? No Points 0 Interpretation Negative BMI Care Goal Follow-Up Question Answer Notes Above Normal BMI Follow-Up Giving encouragement to exercise Tobacco Use: Question Answer Notes Are you a: former smoker How long has it been since you last smoked? > 10 years REASON FOR REFERRAL No Information VITAL SIGNS No information MEDICATIONS Medication SIG (Take, Route, Frequency, Duration) Notes Start Da te End Date Status Colace 100 mg 1 capsule Orally twice a day Active Lancets - as directed subcutaneously three times a day DX: E11.9 for 49 Active GE100 Blood Glucose Test - USE DIRECTED THREE TIMES A DAY for 90 Active Ammonium Lactate 12 % 1 application Externally- on top of feet Daily Active Timolol Hemihydrate 0.5 % 1 drop into affected eye Ophthalmic Once a day Active Pantoprazole Sodium 40 MG 1 tab Orally every morning for 90 Active iFerex 150 150 MG TAKE ONE CAPSULE BY MOUTH EV ANGIE OTHER DAY orally every other day for 30 Days Active Latanoprost 0.005 % 1 drop into both eyes Ophthalmic Once a day Active Tamsulosin HCl 0.4 MG 1 capsule Orally at bedtime for 90 day(s) Active Rivaroxaban 15 MG 1 tablet with food Orally Once a day for 90 day(s) Active Vitamin B-12 1000 MCG 1 tablet-otc Orally Once a day Active Furosemide 40 MG 2 tabs in am, 1 in pm Orally bid for 90 Active Simbrinza 1-0.2 % 1 drop into affected eye Ophthalmic Three times a d ay Active Nitroglycerin 0.4 MG 1 tablet under the tongue an d allow to dissolve as needed Sublingual prn chest pain for 30 day(s) Active Oxybutynin Chloride ER 10 MG 1 tablet Orally every morning for 90 day (s) Active Blood Glucose Test Strip - as directed subcutaneously three tmes a day DXL E11.9 for 100 Active Spironolactone 25 MG 1/2 tablet Orally Daily in the morning Active Glimepiride 4 MG 1 tab orally AC bid for 90 day(s) Active Miralax _ 8 grams orally qd for 90 day(s) Active Sertraline HCl 50 MG 1 tablet Orally Once a day for 90 day(s) Active Metformin HCl 500 MG 1 tab orally AC BID for 90 day(s) Active Atorvastatin Calcium 80 mg 1 tablet Orally Once a day for 90 day(s) Active Ergocalciferol 16680 UNIT 1 capsule Orally every 7 days for 90 day(s) Active Clotrimazole 1 % 1 application to affected ar ea Externally Twice a day for 30 Days Active Carvedilol 6.25 MG 1 tab(s) Orally Twice a day Active PROCEDURES No Information RESULTS No Results REASON FOR VISIT refill Ferrex 150 cap MEDICAL (GENERAL) HISTORY Type Description Date Medical History 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-D stephanie Riggs Medical History T2DM c nephropathy Medical History hypertension/hypertensive he art disease/CHF, diastolic, chronic- mod LVH, normal LVEF, mild /MR, mild PHTH, severe LAE by 04/2019 [facility] Medical History anemia, secondary to iron deficiency, B1 2 deficiency Medical History hyperlipidemia 2B Medical History history of nicotine addiction-December 08 05 FEV1 75% normal Medical History BPH with LUTS Medical History obesity Medical History constipation, chronic Medical History atrial flutter, aymptomatic, detected 03/10/2013 OV with Plavix changed to Xarelto/04/2013 Holter c SVT runs to 155, longest 8 beats Medical History ALBERT, severe 02/2015 NPSG c API 26-[facility] Medical History adenomatous polyp, mild duod enitis at bulb (not biopsied), grade III hemorrhoid by EGD/colon-09/2015 [facility] Medical History CKD stage 3-08/2015 normal B renal US x peak systolic P on R not meeting criteria of SHONDA Medical History cholelithiasis by 11/24/19 CT [facility] Surgical History tonsillectomy 1944 Surgical History adenoidectomy 1944 Surgical History L cataract-[facility] 07/2012 Surgical History R cataract-[facility] 07/2014 Hospitalization History symptomatic Fe def anemia-hg b ronaldo 7.5-tx 2u PRBCs, CXR NAD, , Dr. Freed recommended outpx EGD/colon 11/10- Goals Section No Information Health Concerns No Information MEDICAL EQUIPMENT No Information MENTAL STATUS No Information FUNCTIONAL STATUS No Information ASSESSMENTS Encounter Date Diagnosis Assessment Notes Treatment Notes Treatm ent Clinical Notes Sep, Iron deficiency anemia, unspecified (ICD-10 - D5 0.9) PLAN OF TREATMENT Medication Medication Name Sig Start Date Stop Date Clotrimazole 1 % 1 application to affected ar ea Externally Twice a day for 30 Days Carvedilol 6.25 MG 1 tab(s) Orally Twice a day Ergocalciferol 07483 UNIT 1 capsule Orally every 7 days for 90 d ay(s) Atorvastatin Calcium 80 mg 1 tablet Orally Once a day for 90 day (s) Rivaroxaban 15 MG 1 tablet with food Orally Once a day for 90 da y(s) Pantoprazole Sodium 40 MG 1 tab Orally every morning for 90 Sertraline HCl 50 MG 1 tablet Orally Once a day for 90 day(s) Colace 100 mg 1 capsule Orally twice a day Lancets - as directed subcutaneously three times a day DX: E11.9 for 49 Spironolactone 25 MG 1/2 tablet Orally Daily in the morning Vitamin B-12 1000 MCG 1 tablet-otc Orally Once a day Metformin HCl 500 MG 1 tab orally AC BID for 90 day(s) iFerex 150 150 MG TAKE ONE CAPSULE BY MOUTH EV ANGIE OTHER DAY orally every other day for 30 Days Nitroglycerin 0.4 MG 1 tablet under the tongue an d allow to dissolve as needed Sublingual prn chest pain for 30 day(s) Glimepiride 4 MG 1 tab orally AC bid for 90 day(s) Tamsulosin HCl 0.4 MG 1 capsule Orally at bedtime for 90 day(s) Furosemide 40 MG 2 tabs in am, 1 in pm Orally bid for 90 Oxybutynin Chloride ER 10 MG 1 tablet Orally every morning for 9 0 day(s) GE100 Blood Glucose Test - USE DIRECTED THREE TIMES A DAY for 90 Miralax _ 8 grams orally qd for 90 day(s) Next Appt Details Provider Name:Georges Mendieta, 2020-10 10:30:00 AM, [address] [facility], [address] [place] [address], [address], Provider Name:Yousif Monique, 2020-12-30 0 8:30:00 AM, [address] [place], [phone], Insurance Providers Payer Name Payer Address Payer Phone Insured Name Patient Relati onship to Insured Coverage Start Date Coverage End Date [employer] [address] [address] [facility] [phone] RADHA BRODERICK self
--- OUTSIDE RECORDS SUMMARY | 2021-01-09 16:37 | CCD ---
Author Author [facility] Organization [facility] Address Unknown Phone Unavailable Care Team Providers Care Educational Psychologist Name Role Phone Yousif Monique Unavailable PROBLEMS Type Condition ICD9-CM Code [id number] Code Onset Dates Condition S tatus SNOMED Code Notes Problem Adenomatous polyp of colon D12.6 Active 04890 4006 Problem Constipation, chronic K59.09 Active 356928327 Problem Prolapsed internal hemorrhoids, grade 3 K64.2 Active 17449134 Problem Anxiety disorder F41.9 Active 897701046 Problem Diastolic CHF I50.30 Active 580264056 Problem ALBERT (obstructive sleep apnea) G47.33 Active 78 820089 Problem Atrial flutter I48.92 Active 9498029 Problem 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 Active 1081524 Problem Iron deficiency anemia, unspecified D50.9 Acti ve 96114963 Problem SK (seborrheic keratosis) L82.1 Active 969204 000 Problem Mixed hyperlipidemia E78.2 Active 786908789 Problem Vitamin D deficiency E55.9 Active 97540643 Problem Enlarged prostate with lower urinary tract symptoms N40.1 Active 47241382078638 Problem B12 deficiency E53.8 Active 119038437 Problem AK (actinic keratosis) L57.0 Active 809385582 Problem CAD (coronary artery disease) I25.10 Active 53 332375 Problem Seborrheic dermatitis L21.9 Active 14096059 Problem Paroxysmal atrial fibrillation I48.0 Active 2 43537262 Problem CKD (chronic kidney disease) stage 3, GFR 30-59 ml/min N18.3 Active 249047329 Problem Prostate cancer screening Z12.5 Active 703413 001 Problem Diabetes mellitus with complication E11.8 Acti ve 780859265 Problem Essential (primary) hypertension I10 Active 60629574 Problem Calculus of gallbladder without 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 K80.20 Active 80043376 Problem DM2 (diabetes mellitus, type 2) E11.9 Active 01126467 Problem Tinea pedis of both feet B35.3 Active 6692520 Problem Xerosis of skin L85.3 Active 77226577 Problem Skin tag L91.8 Active 386307029 Problem Melanocytic nevi of right upper limb, including shoulder D22.61 Active 813164507 Problem Overactive bladder N32.81 Active 407072090 Problem Melanocytic nevi of trunk D22.5 Active 372789 002 Problem Impingement syndrome, shoulder, right M75.41 Ac tive 973556302 Problem Recurrent sinusitis J32.9 Active 422245626 Problem Lentigines L81.4 Active 955129138 Problem Melanocytic nevi of left lower limb, including hip D22.72 Active 704748410553691 Problem Melanocytic nevi of right lower limb, including hip D22.71 Active 856761683 Problem Melanocytic nevi of left upper limb, including shoulder D22.62 Active 484571884005059 ALLERGIES No Known Allergies ENCOUNTERS from 1937 to 2020-11-30 Encounter Location Date Provider Diagnosis [address] [phone] Nov, 021 Yousif Monique IMMUNIZATIONS Vaccine Route Administration Date Status Influenza (18 yrs & older) Flublok IM Intramuscular Aug 12 9 Administered Influenza (High Dose 65 & up) IM Intramuscular Sep 22, 2016 A dministered Influenza (High Dose 65 & up) IM Intramuscular Aug 24, 2015 A dministered Zoster 0.65mL (Zostavax) SC Subcutaneous Dec 24, 2015 Adminis tered Pneumococcal Adult 0.5mL (Pneumovax 23) IM Intramuscular Jul Administered Pneumococcal 0.5mL (Prevnar 13) IM Intramuscular Jul 06, 2017 Administered Influenza (Pharmacy Given) Unknown Sep 23, 2018 Admin istered Pneumococcal 0.5mL (Prevnar 13) IM Intramuscular Oct 06, 2016 Administered Influenza (Pharmacy Given) Unknown Jul 13, 2020 Admin istered Influenza (6mo & up) Fluzone IM Intramuscular Jul 06, 2017 Ad ministered Influenza (6mo & up) Fluzone ID Intradermal Aug 31, 2011 Adm inistered SOCIAL HISTORY Tobacco Use: Social History Observation Description Date Details (start date - stop date) Former Smoker Sex Assigned At : Social History Observation Description Sex Assigned At Unknown Language: Question Answer Notes Languages spoken: Citizen Of [place] Islam: Question Answer Notes Islam 21 Pentecostalism Sexual Hx: Question Answer Notes Had sex [...] Notes Start Da te End Date Status Nitroglycerin 0.4 MG 1 tablet under the tongue an d allow to dissolve as needed Sublingual prn chest pain for 30 day(s) Active Simbrinza 1-0.2 % 1 drop into affected eye Ophthalmic Three times a d ay Active Sertraline HCl 50 MG 1 tablet Orally Once a day for 90 day(s) Active Metformin HCl 500 MG 1 tab orally AC BID for 90 day(s) Active Oxybutynin Chloride ER 10 MG 1 tablet Orally every morning for 90 day (s) Active Latanoprost 0.005 % 1 drop into both eyes Ophthalmic Once a day Active Vitamin B-12 1000 MCG 1 tablet-otc Orally Once a day Active Blood Glucose Test Strip - as directed subcutaneously three tmes a day DXL E11.9 for 100 Active Tamsulosin HCl 0.4 MG 1 capsule Orally at bedtime for 90 day(s) Active Timolol Hemihydrate 0.5 % 1 drop into affected eye Ophthalmic Once a day Active Carvedilol 6.25 MG 1 tab(s) Orally Twice a day Active Mometasone Furoate 0.1 % 1 application Externally Onc e a day in AM to face and other areas with rash for 30 days Active Clotrimazole 1 % 1 application to affected area Externally Twice a da y Active Pantoprazole Sodium 40 MG 1 tab Orally every morning for 90 Active Rivaroxaban 15 MG 1 tablet with food Orally Once a day for 90 day(s) Active Atorvastatin Calcium 80 mg 1 tablet Orally Once a day for 90 day(s) Active Mometasone Furoate 0.1 % 1 application Externally Once a day Active Glimepiride 4 MG 1 tab orally AC bid for 90 Active Spironolactone 25 MG 1/2 tablet Orally Daily in the morning Active Ergocalciferol 02790 UNIT 1 capsule Orally every 7 days for 84 Active GE100 Blood Glucose Test - USE DIRECTED THREE TIMES A DAY for 90 Active iFerex 150 150 MG TAKE ONE CAPSULE BY MOUTH EV ANGIE OTHER DAY orally every other day for 30 Days Active Miralax _ 8 grams orally qd for 90 day(s) Active Ammonium Lactate 12 % 1 application Externally- on top of feet Daily Active Lancets - as directed subcutaneously three times a day DX: E11.9 for 49 Active Colace 100 mg 1 capsule Orally twice a day Active Furosemide 40 MG 2 tabs in am, 1 in pm Orally bid for 90 Active PROCEDURES No Information RESULTS No Results REASON FOR VISIT reported blood sugars MEDICAL (GENERAL) HISTORY Type Description Date Medical History 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 Freed recommended outpx EGD/colon 11/10- Hospitalization History BLood transfusions 08/2020 Goals Section No Information Health Concerns No Information MEDICAL EQUIPMENT No Information MENTAL STATUS No Information FUNCTIONAL STATUS No Information ASSESSMENTS No Information PLAN OF TREATMENT Medication Medication Name Sig Start Date Stop Date Ergocalciferol 93941 UNIT 1 capsule Orally every 7 days for 84 Clotrimazole 1 % 1 application to affected area Externally Twice a day Glimepiride 4 MG 1 tab orally AC bid for 90 Mometasone Furoate 0.1 % 1 application Externally Onc e a day in AM to face and other areas with rash for 30 days Next Appt Details Provider Name:Yousif Monique, 2020-12-30 0 8:30:00 AM, [address] [place], [address], Provider Name:Georges Mendieta, 2021-10 11:00:00 AM, [address], [address] [place] [address], [place], [address], Insurance Providers Payer Name Payer Address Payer Phone Insured Name Patient Relati onship to Insured Coverage Start Date Coverage End Date [facility] [address] [address] [facility] [phone] RADHA BRODERICK self
--- OUTSIDE RECORDS SUMMARY | 2021-01-09 16:37 | CCD | Continuity of Care Document ---
Author Author Romeo ANDRADE DPM Organization Unknown Address [address] [place] [address], [address] [place] [address] Phone [phone] Care Team Providers Care Third Mate Name Role Phone Yousif Monique M.D. [phone] Problems Active Problems Provider Date Tailor's bunion Nehemiah Andrade DPM Onset: 02/12/2018 Type 2 diabetes mellitus with diabetic polyneuropathy Nehemiah Andrade DPM Onset: 02/12/2018 Onychomycosis Nehemiah Andrade DPM Onset: 02/12/2018 Plantar fascial fibromatosis Nehemiah Andrade DPM Onset: Social History Type Date Description Comments Sex Unknown ETOH Use Rarely consumes alcohol Tobacco Use Start: Unknown End: Unknown Patient is a former smoker stopped 1994 smoked 40 years 2 ppd Allergies, Adverse Reactions, Alerts Description No Known Drug Allergies Medications Active Medications SIG Qnty Indications Ordering Provide r Date Ammonium Lactate 12% Cream apply to feet daily 140gm Nehemiah Andrade DPM 11/24/2019 Furosemide 40mg Tablets Unknown Fluzone High-Dose 0.5ml Meche Unknown Prevnar 13 Suspension Unknown Levofloxacin 250mg Tablets Kayden Weston,Yousif Timolol Maleate 0.5% Solution Unknown Amoxicillin/Clavulanate Potassium 875-125mg Tablets Kayden Weston,Yousif Fluorouracil 5% Cream Kayden Weston,Yousif Carvedilol 6.25mg Tablets Kayden Weston,Yousif Oxybutynin Chloride 5mg Tablets Kayden Weston,Yousif Furosemide 20mg Tablets [facility] Dorzolamide HCL 2% Solution Unknown Fluticasone Propionate 0.05% Cream Unknown Sertraline HCL 50mg Tablets RUMA Spencer Susan Alphagan P 0.1% Solution Unknown Latanoprost 0.005% Solution Unknown Atorvastatin Calcium 80mg Tablets Kayden Weston,Yousif Immunizations Description No Information Available Vital Signs Date Vital Result Comment 02/07/2018 1:38pm Height 69 inches 5'9" Weight 212.00 lb BP Systolic 130 mmHg BP Diastolic 68 mmHg Heart Rate 60 /min BMI (Body Mass Index) 31.3 kg/m2 Results Description No Information Available Procedures Date Code Description Status 11/08/2020 88692 Debridement 6-10 Nails Electric Completed 08/31/2020 23398 Debridement 6-10 Nails Electric Completed 06/22/2020 86444 Debridement 6-10 Nails Electric Completed Medical Devices Description No Information Available Encounters Description No Information Available Assessments Date Code Description Provider 11/08/2020 B35.1 Tinea unguium Nehemiah Andrade, RIGO 11/08/2020 E11.42 Type 2 diabetes mellitus with di abetic polyneuropathy Nehemiah Andrade DPM 08/31/2020 B35.1 Tinea unguium Nehemiah Andrade, RIGO 08/31/2020 E11.42 Type 2 diabetes mellitus with di abetic polyneuropathy Nehemiah Andrade DPM 06/22/2020 B35.1 Tinea unguium Nehemiah Andrade, NILSAM 06/22/2020 E11.42 Type 2 diabetes mellitus with di abetic polyneuropathy Nehemiah Andrade DPM Plan of Treatment Future Appointment(s):* 01/18/2021 11:00 am - Nehemiah Andrade DPM at [facility] Functional Status Description No Information Available Mental Status Description No Information Available Referrals Description No Information Available
--- OUTSIDE RECORDS SUMMARY | 2021-01-09 16:37 | CCD ---
Author Author [facility] Organization [facility] Address Unknown Phone Unavailable Care Team Providers Care Cafeteria Operator Name Role Phone Yousif Monique Unavailable PROBLEMS Type Condition ICD9-CM Code [id number] Code Onset Dates Condition S tatus SNOMED Code Notes Problem Adenomatous polyp of colon D12.6 Active 84139 4006 Problem Constipation, chronic K59.09 Active 666528769 Problem Prolapsed internal hemorrhoids, grade 3 K64.2 Active 05656540 Problem Anxiety disorder F41.9 Active 756539217 Problem Diastolic CHF I50.30 Active 208956796 Problem ALBERT (obstructive sleep apnea) G47.33 Active 78 974026 Problem Atrial flutter I48.92 Active 2363090 Problem 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 Active 2027851 Problem Iron deficiency anemia, unspecified D50.9 Acti ve 05816693 Problem SK (seborrheic keratosis) L82.1 Active 173540 000 Problem Mixed hyperlipidemia E78.2 Active 061709350 Problem Vitamin D deficiency E55.9 Active 49731648 Problem Enlarged prostate with lower urinary tract symptoms N40.1 Active 25531009180949 Problem B12 deficiency E53.8 Active 244536922 Problem AK (actinic keratosis) L57.0 Active 857617125 Problem CAD (coronary artery disease) I25.10 Active 53 562057 Problem Seborrheic dermatitis L21.9 Active 28065262 Problem Paroxysmal atrial fibrillation I48.0 Active 2 58257303 Problem CKD (chronic kidney disease) stage 3, GFR 30-59 ml/min N18.3 Active 610920052 Problem Prostate cancer screening Z12.5 Active 554124 001 Problem Diabetes mellitus with complication E11.8 Acti ve 056040485 Problem Essential (primary) hypertension I10 Active 34249556 Problem Calculus of gallbladder without 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 K80.20 Active 62216291 Problem DM2 (diabetes mellitus, type 2) E11.9 Active 40910671 Problem Tinea pedis of both feet B35.3 Active 2228098 Problem Xerosis of skin L85.3 Active 54015023 Problem Skin tag L91.8 Active 500401235 Problem Melanocytic nevi of right upper limb, including shoulder D22.61 Active 484186761 Problem Overactive bladder N32.81 Active 036511703 Problem Melanocytic nevi of trunk D22.5 Active 010648 002 Problem Impingement syndrome, shoulder, right M75.41 Ac tive 567389586 Problem Recurrent sinusitis J32.9 Active 476296337 Problem Lentigines L81.4 Active 678560125 Problem Melanocytic nevi of left lower limb, including hip D22.72 Active 605060611269607 Problem Melanocytic nevi of right lower limb, including hip D22.71 Active 758046530 Problem Melanocytic nevi of left upper limb, including shoulder D22.62 Active [id number] ALLERGIES No Known Allergies ENCOUNTERS from 1937 to 2020-11-26 Encounter Location Date Provider Diagnosis [address] [address] Nov, 021 Yousif Monique IMMUNIZATIONS Vaccine Route [...] Unknown Language: Question Answer Notes Languages spoken: Malaysian Methodist: Question Answer Notes [facility] 21 [employer] Sexual Hx: Question Answer Notes Had sex [...] orally AC BID for 90 day(s) Active Glimepiride 4 MG 1 tab orally AC bid for 90 day(s) Active Latanoprost 0.005 % 1 drop into both eyes Ophthalmic Once a day Active Vitamin B-12 1000 MCG 1 tablet-otc Orally Once a day Active Blood Glucose Test Strip - as directed subcutaneously three tmes a day DXL E11.9 for 100 Active Oxybutynin Chloride ER 10 MG 1 tablet Orally every morning for 90 day (s) Active Timolol Hemihydrate 0.5 % 1 drop [...] 1 application Externally Once a day Active Tamsulosin HCl 0.4 MG 1 capsule Orally at bedtime for 90 day(s) Active Spironolactone 25 MG 1/2 tablet Orally Daily in the morning Active Ergocalciferol 79874 UNIT 1 capsule Orally every 7 days [...] Information RESULTS No Results REASON FOR VISIT slurring, concerns with FS MEDICAL (GENERAL) HISTORY Type Description Date Medical History 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-D stephanie Riggs Medical History T2DM c nephropathy Medical History hypertension/hypertensive he art disease/CHF, diastolic, chronic- mod LVH, normal LVEF, mild /MR, mild PHTH, severe LAE by 04/2019 [facility] Medical History anemia, secondary to iron [...] Name Sig Start Date Stop Date Ergocalciferol 44616 UNIT 1 capsule Orally every 7 days for 84 Clotrimazole 1 % 1 application to affected area Externally Twice a day Mometasone Furoate 0.1 % 1 application Externally Onc e a day in AM to face and other areas with rash for 30 days Next Appt Details Provider Name:Yousif Monique, 2020-12-30 0 8:30:00 AM, [address] [place], [address], Provider Name:Georges Mendieta, 2021-10 11:00:00 AM, [address] [facility], [address] [place] [address], [place], [address], Insurance Providers Payer Name Payer Address Payer Phone Insured Name Patient Relati onship to Insured Coverage Start Date Coverage End Date [facility] [address] [address] [facility] [address] [phone] RADHA BRODERICK self
--- OUTSIDE RECORDS SUMMARY | 2021-01-09 16:37 | CCD | Continuity of Care Document ---
Author Author Romeo ANDRADE DPM Organization Unknown Address [address] [place] [address], [address] [place] [address] Phone [phone] Care Team Providers Care Wood Tank Erector Name Role Phone Yousif Monique M.D. [phone] Problems Active Problems Provider Date Tailor's bunion [...] Tablets Kayden Weston,Yousif Furosemide 20mg [facility] Dorzolamide HCL 2% Solution Unknown Fluticasone Propionate [...] Information Available Procedures Date Code Description Status 08/31/2020 22611 Debridement 6-10 Nails Electric Completed 06/22/2020 14464 Debridement 6-10 Nails Electric Completed Medical Devices Description No Information Available Encounters Description No Information Available Assessments Date Code Description Provider 08/31/2020 B35.1 Tinea unguium Nehemiah Andrade DPM 08/31/2020 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
--- OUTSIDE RECORDS SUMMARY | 2021-01-09 16:37 | CCD ---
Author Author [facility] Organization [facility] Address Unknown Phone Unavailable Care Team Providers Care Over [employer] Targeting Supervisor Name Role Phone Georges Mendieta Unavailable PROBLEMS Type Condition ICD9-CM Code [id number] Code Onset Dates Condition S tatus SNOMED Code Notes Problem Adenomatous polyp of colon D12.6 Active 91172 4006 Problem Constipation, chronic K59.09 Active 608622576 Problem Prolapsed internal hemorrhoids, grade 3 K64.2 Active 30097663 Problem Anxiety disorder F41.9 Active 273467370 Problem Diastolic CHF I50.30 Active 431040986 Problem ALBERT (obstructive sleep apnea) G47.33 Active 78 353688 Problem Atrial flutter I48.92 Active 6705809 Problem 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 Active 9129847 Problem Iron deficiency anemia, unspecified D50.9 Acti ve 11632336 Problem SK (seborrheic keratosis) L82.1 Active 140135 000 Problem Mixed hyperlipidemia E78.2 Active 665703961 Problem Vitamin D deficiency E55.9 Active 24128966 Problem Enlarged prostate with lower urinary tract symptoms N40.1 Active 02154064966482 Problem B12 deficiency E53.8 Active 557881172 Problem AK (actinic keratosis) L57.0 Active 800685536 Problem CAD (coronary artery disease) I25.10 Active 53 541628 Problem Seborrheic dermatitis L21.9 Active 40279442 Problem Paroxysmal atrial fibrillation I48.0 Active 2 28796793 Problem CKD (chronic kidney disease) stage 3, GFR 30-59 ml/min N18.3 Active 003411004 Problem Prostate cancer screening Z12.5 Active 675099 001 Problem Diabetes mellitus with complication E11.8 Acti ve 482232170 Problem Essential (primary) hypertension I10 Active 92787670 Problem Calculus of gallbladder without 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 K80.20 Active 94385653 Problem DM2 (diabetes mellitus, type 2) E11.9 Active 38510347 Problem Tinea pedis of both feet B35.3 Active 0523455 Problem Xerosis of skin L85.3 Active 16192902 Problem Skin tag L91.8 Active 563896592 Problem Melanocytic nevi of right upper limb, including shoulder D22.61 Active 074715568 Problem Overactive bladder N32.81 Active 955729287 Problem Melanocytic nevi of trunk D22.5 Active 415621 002 Problem Impingement syndrome, shoulder, right M75.41 Ac tive 691992026 Problem Recurrent sinusitis J32.9 Active 284913855 Problem Lentigines L81.4 Active 896808134 Problem Melanocytic nevi of left lower limb, including hip D22.72 Active 950213086613263 Problem Melanocytic nevi of right lower limb, including hip D22.71 Active 137622762 Problem Melanocytic nevi of left upper limb, including shoulder D22.62 Active [id number] ALLERGIES No Known Allergies ENCOUNTERS from 1935 to 2020-10-26 Encounter Location Date Provider Diagnosis [facility] Dermatology [address] [place] [address] Oct, Georges Mendieta AK (actinic keratosis) L57.0 ; Screening, malignant neoplasm, skin Z12.83 ; Seborrheic dermatitis L21.9 ; Xerosis of skin L85.3 ; Tinea pedis of both feet B35.3 ; 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 ; Skin tag L91.8 ; SK (seborrheic keratosis) L82.1 ; Melanocytic nevi of trunk D22.5 ; Melanocytic nevi of left upper limb, including shoulder D22.62 ; Melanocytic nevi of right upper limb, including shoulder D22.61 ; Melanocytic nevi of left lower limb, including hip D22.72 ; Melanocytic nevi of right lower limb, including hip D22.71 and Lentigines L81.4 IMMUNIZATIONS Vaccine Route Administration Date Status Influenza [...] Unknown Language: Question Answer Notes Languages spoken: Burkinan Yarsanism: Question Answer Notes Yarsanism 21 Yazdanism Sexual Hx: Question Answer Notes Had sex [...] REASON FOR REFERRAL No Information VITAL SIGNS Weight 204.0 lbs Oct, Height 69 in Oct, BMI 30.12 kg/m2 Oct, Blood pressure systolic 116 mm Hg Oct, Blood pressure diastolic 64 mm Hg Oct, MEDICATIONS Medication SIG (Take, Route, Frequency, Duration) Notes Start Da te End Date Status Vitamin B-12 1000 MCG 1 tablet-otc Orally Once a day Active Simbrinza 1-0.2 % 1 drop into affected eye Ophthalmic Three times a d ay Active Nitroglycerin 0.4 MG 1 tablet under the tongue an d allow to dissolve as needed Sublingual prn chest pain for 30 day(s) Active Metformin HCl 500 MG 1 tab orally AC BID for 90 day(s) Active Glimepiride 4 MG 1 tab orally AC bid for 90 day(s) Active Latanoprost 0.005 % 1 drop into both eyes Ophthalmic Once a day Active Ergocalciferol 71879 UNIT 1 capsule Orally every 7 days for 90 day(s) Active Blood Glucose Test Strip - as directed subcutaneously three tmes a day DXL E11.9 for 100 Active Oxybutynin Chloride ER 10 MG 1 tablet Orally every morning for 90 day (s) Active Timolol Hemihydrate 0.5 % 1 drop into affected eye Ophthalmic Once a day Active Mometasone Furoate 0.1 % 1 application Externally Once a day Active Carvedilol 6.25 MG 1 tab(s) Orally Twice a day Active Clotrimazole 1 % 1 application to affected area Externally Twice a da y Active GE100 Blood Glucose Test - USE DIRECTED THREE TIMES A DAY for 90 Active Rivaroxaban 15 MG 1 tablet with food Orally Once a day for 90 day(s) Active iFerex 150 150 MG TAKE ONE CAPSULE BY MOUTH EV ANGIE OTHER DAY orally every other day for 30 Days Active Pantoprazole Sodium 40 MG 1 tab Orally every morning for 90 Active Tamsulosin HCl 0.4 MG 1 capsule Orally at bedtime for 90 day(s) Active Spironolactone 25 MG 1/2 tablet Orally Daily in the morning Active Atorvastatin Calcium 80 mg 1 tablet Orally Once a day for 90 day(s) Active Sertraline HCl 50 MG 1 tablet Orally Once a day for 90 day(s) Active Mometasone Furoate 0.1 % 1 application Externally Onc e a day in AM to face and other areas with rash for 30 days Active Miralax _ 8 grams orally qd [...] Information RESULTS No Results REASON FOR VISIT FBSE MEDICAL (GENERAL) HISTORY Type Description Date Medical History 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 [place] protocol was followed in compliance with [facility] standards. Patient was counseled regarding the indication for treatment (precancerous state for actinic keratosis or cosmetic reasons if done for seborrheic keratoses, acrochordons or warts) as well as, the method and expected results to include compromise of the skin barrier, bleeding, scarring/white area, redness at site, lesion recurrence, and pain. Patient was consented to the risks and benefits of the procedure and gave informed consent. Lesion(s) with locations as indicated in the physical examination were treated. Lesion(s) were treated with 2 cycles of liquid nitrogen with a thaw time of at least ten seconds. Therapy was applied in a pulsed fashion to minimize collateral tissue injury. Patient was instructed to use Vaseline ointment to the area(s) until healed. Patient tolerated the procedure well and left in stable condition. Pain before and after the procedure were assessed to not be significantly different than baseline. Oct, Screening, malignant neoplasm, skin (ICD-10 - Z1 2.83) Patient counseled on signs and symptoms of skin cancer including ABCDE's of Melanoma. Patient counseled to wear sunscreen or use sun protective clothing when outdoors. Avoid peak hours of sun between 10-2. Patient instructed to call with any new or changing lesions. Oct, Seborrheic dermatitis (ICD-10 - L21.9) Desitin 40% nightly to area with rash before CPAP, use rx as above, ensure proper cleaning of the CPAP mask Oct, Xerosis of skin (ICD-10 - L85.3) Discussed important issues including the need to take short baths or showers, use a mild soap like Dove, Tone or Caress, and the importance of moisturizing after bathing, and discussed that moisturizing creams are more effective than lotions. Oct, Tinea pedis of both feet (ICD-10 - B35.3) Use rx as above, well controlled Oct, Meade angioma (ICD-10 - I78.1) Benign, reassurance Oct, Skin tag (ICD-10 - L91.8) Benign, reassurance Oct, SK (seborrheic keratosis) (ICD-10 - L82.1) Benign, reassurance Oct, Melanocytic nevi of trunk (ICD-10 - D22.5) Benign, reassurance, ABCDE, photoprotection, Q 1 Y MD derm skin check, Q 1 M self skin check Oct, Melanocytic nevi of left upp er limb, including shoulder (ICD-10 - D22.62) Benign, reassurance, ABCDE, photoprotection, Q 1 Y MD derm skin check, Q 1 M self skin check Oct, Melanocytic nevi of right up per limb, including shoulder (ICD-10 - D22.61) Benign, reassurance, ABCDE, photoprotection, Q 1 Y MD derm skin check, Q 1 M self skin check Oct, Melanocytic nevi of left low er limb, including hip (ICD-10 - D22.72) Benign, reassurance, ABCDE, photoprotection, Q 1 Y MD derm skin check, Q 1 M self skin check Oct, Melanocytic nevi of right lo wer limb, including hip (ICD-10 - D22.71) Benign, reassurance, ABCDE, photoprotection, Q 1 Y MD derm skin check, Q 1 M self skin check Oct, Lentigines (ICD-10 - L81.4) Benign, reassurance, ABCDE, photoprotection, Q 1 Y MD derm skin check, Q 1 M self skin check PLAN OF TREATMENT Medication Medication Name Sig Start Date Stop Date Mometasone Furoate 0.1 % 1 application Externally Onc e a day in AM to face and other areas with rash for 30 days Clotrimazole 1 % 1 application to affected area Externally Twice a day Treatment Notes Assessment Notes Clinical Notes Lentigines Benign, reassurance, ABCDE, photoprotection, Q 1 Y derm skin check, Q 1 M self skin check AK (actinic keratosis) Cryotherapy x [2 ] number of sites. [place] protocol was followed in compliance with [facility] standards. Patient was counseled regarding the indication for treatment (precancerous state for actinic keratosis or cosmetic reasons if done for seborrheic keratoses, acrochordons or warts) as well as, the method and expected results to include compromise of the skin barrier, bleeding, scarring/white area, redness at site, lesion recurrence, and pain. Patient was consented to the risks and benefits of the procedure and gave informed consent. Lesion(s) with locations as indicated in the physical examination were treated. Lesion(s) were treated with 2 cycles of liquid nitrogen with a thaw time of at least ten seconds. Therapy was applied in a pulsed fashion to minimize collateral tissue injury. Patient was instructed to use Vaseline ointment to the area(s) until healed. Patient tolerated the procedure well and left in stable condition. Pain before and after the procedure were assessed to not be significantly different than baseline. Melanocytic nevi of right lower limb, including hip Be nign, reassurance, ABCDE, photoprotection, Q 1 Y derm skin check, Q 1 M self skin check Screening, malignant neoplasm, skin Patient counseled on signs and symptoms of skin cancer including ABCDE's of Melanoma. Patient counseled to wear sunscreen or use sun protective clothing when outdoors. Avoid peak hours of sun between 10 -2. Patient instructed to call with any new or changing lesions. Seborrheic dermatitis Desitin 40% nightly to area with rash before CPAP, use rx as above, ensure proper cleaning of the CPAP mask Xerosis of skin Discussed important issues i ncluding the need to take short baths or showers, use a mild soap like Dove, Tone or Caress, and the importance of moisturizing after bathing, and discussed that moisturizing creams are more effective than lotions. Tinea pedis of both feet Use rx as above, well controlled Meade angioma Benign, reassurance Skin tag Benign, reassurance Melanocytic nevi of left lower limb, including hip Juan ign, reassurance, ABCDE, photoprotection, Q 1 Y MD derm skin check, Q 1 M self skin check Melanocytic nevi of right upper limb, including should er Benign, reassurance, ABCDE, photoprotection, Q 1 Y MD derm skin check, Q 1 M self skin check SK (seborrheic keratosis) Benign, reassurance Melanocytic nevi of trunk Benign, reassurance, ABCDE, photoprotection, Q 1 Y MD derm skin check, Q 1 M self skin check Melanocytic nevi of left upper limb, including shoulde r Benign, reassurance, ABCDE, photoprotection, Q 1 Y MD derm skin check, Q 1 M self skin check Next Appt Details 1 Year Reason:FBSE Provider Name:Yousif Monique, 2020-12-30 0 8:30:00 AM, [address] [place], [address], Provider Name:Georges Mendieta, 2021-10 11:00:00 AM, [address] [facility], [address] [facility], [place], [address], Follow Up:1 YearFBSE Insurance Providers Payer Name Payer Address Payer Phone Insured Name Patient Relati onship to Insured Coverage Start Date Coverage End Date [facility] [address] [address] [facility] [id number] RADHA BRODERICK self
--- OUTSIDE RECORDS SUMMARY | 2021-01-09 16:38 | CCD ---
Author Author [facility] Organization [facility] Address Unknown Phone Unavailable Care Team Providers Care Senior Mainframe Developer Name Role Phone Federico ANDRADE DPM Unavailable Unavailable Federico ANDRADE DPM Unavailable Unavailable Federcio ANDRADE DPM Unavailable Unavailable Federico ANDRADE DPM Unavailable Unavailable Federico ANDRADE DPM Unavailable Unavailable Federico ANDRADE DPM Unavailable Unavailable Federico ANDRADE DPM Unavailable Unavailable Federico ANDRADE DPM Unavailable Unavailable Federico ANDRADE DPM Unavailable Unavailable Federico ANDRADE DPM Unavailable Unavailable Federico ANDRADE DPM Unavailable Unavailable Federico ANDRADE DPM Unavailable Unavailable Federico ANDRADE DPM Unavailable Unavailable Federico ANDRADE DPM Unavailable Unavailable Federico ANDRADE DPM Unavailable Unavailable Federico ANDRADE DPM Unavailable Unavailable Federico ANDRADE DPM Unavailable Unavailable Federico ANDRADE DPM Unavailable Unavailable Federico ANDRADE DPM Unavailable Unavailable Federico ANDRADE DPM Unavailable Unavailable Federico ANDRADE DPM Unavailable Unavailable Federico ANDRADE DPM Unavailable Unavailable Federico ANDRADE DPM Unavailable Unavailable Federico ANDRADE DPM Unavailable Unavailable Federico ANDRADE DPM Unavailable Unavailable Federico ANDRADE DPM Unavailable Unavailable Federico ANDRADE DPM Unavailable Unavailable Federico ANDRADE DPM Unavailable Unavailable Federico ANDRADE DPM Unavailable Unavailable MAJFederico RUBIN DPM Unavailable Unavailable Kayden, Dominique Dodd MD Unavailable Unavailable Kayden, Dominique Dodd MD Unavailable Unavailable Kayden, Dominique Dodd MD Unavailable Unavailable Kayden, Dominique Dodd MD Unavailable Unavailable Kayden, Dominique Dodd MD Unavailable Unavailable Kayden, Dominique Dodd MD Unavailable Unavailable Kayden, Dominique Dodd MD Unavailable Unavailable Kayden, Dominique Dodd MD Unavailable Unavailable Kayden, Dominique Dodd MD Unavailable Unavailable Kayden, Dominique Dodd MD Unavailable Unavailable Kayden, Dominique Dodd MD Unavailable Unavailable Kayden, Dominique Dodd MD Unavailable Unavailable Kayden, Dominique Dodd MD Unavailable Unavailable Kayden, Dominique Dodd MD Unavailable Unavailable Kayden, Dominique Dodd MD Unavailable Unavailable Kayden, Dominique Dodd MD Unavailable Unavailable Kayden, Dominique Dodd MD Unavailable Unavailable Kayden, Dominique Dodd MD Unavailable Unavailable Kayden, Dominique Dodd MD Unavailable Unavailable Kayden, Dominique Dodd MD Unavailable Unavailable Kayden, Dominique Dodd MD Unavailable Unavailable Kayden, Dominique Dodd MD Unavailable Unavailable Kayden, Dominique Dodd MD Unavailable Unavailable Kayden, Dominique Dodd MD Unavailable Unavailable Kayden, Dominique oDdd MD Unavailable Unavailable Kayden, Dominique Dodd MD Unavailable Unavailable Kayden, Dominique Dodd MD Unavailable Unavailable Kayden, Dominique Dodd MD Unavailable Unavailable Kayden, Dominique Dodd MD Unavailable Unavailable Kayden, Dominique Dodd MD Unavailable Unavailable Kayden, Dominique Dodd MD Unavailable Unavailable Kayden, Dominique Dodd MD Unavailable Unavailable Kayden, Dominique Dodd MD Unavailable Unavailable Kayden, Dominique Dodd MD Unavailable Unavailable Kayden, Dominique Dodd MD Unavailable Unavailable Kayden, Dominique Dodd MD Unavailable Unavailable Kayden, Dominique Dodd MD Unavailable Unavailable Kayden, Dominique Dodd MD Unavailable Unavailable Kayden, Dominique Dodd MD Unavailable Unavailable Kayden, Dominique Dodd MD Unavailable Unavailable Kayden, Dominique Dodd MD Unavailable Unavailable Kayden, Dominique Dodd MD Unavailable Unavailable Kayden, Dominique Dodd MD Unavailable Unavailable Kayden, Dominique Dodd MD Unavailable Unavailable Kayden, Dominique Dodd MD Unavailable Unavailable Kayden, Dominique Dodd MD Unavailable Unavailable KaydenDominique MD Unavailable Unavailable Kayden, Dominique Dodd MD Unavailable Unavailable Kayden, Dominique Dodd MD Unavailable Unavailable Kayden, Dominique Dodd MD Unavailable Unavailable Kayden, Dominique Dodd MD Unavailable Unavailable Kayden, Dominique Dodd MD Unavailable Unavailable Kayden, Dominique Dodd MD Unavailable Unavailable Kayden, Dominique Dodd MD Unavailable Unavailable Kayden, Dominique Dodd MD Unavailable Unavailable Kayden, Dominique Dodd MD Unavailable Unavailable Kayden, Dominique Dodd MD Unavailable Unavailable Sharon, N Klever BOOKSEAMER BLINDSTITCH Unavailable Unavailable [place], N Klever BOOKSEAMER BLINDSTITCH Unavailable Unavailable [place], N Klever BOOKSEAMER BLINDSTITCH Unavailable Unavailable Sharon, N Klever BOOKSEAMER BLINDSTITCH Unavailable Unavailable Sharon, N Klever BOOKSEAMER BLINDSTITCH Unavailable Unavailable Sharon, N Klever BOOKSEAMER BLINDSTITCH Unavailable Unavailable [place], N Klever BOOKSEAMER BLINDSTITCH Unavailable Unavailable Sharon, N Klever BOOKSEAMER BLINDSTITCH Unavailable Unavailable Sharon, N Klever BOOKSEAMER BLINDSTITCH Unavailable Unavailable Sharon, N Klever BOOKSEAMER BLINDSTITCH Unavailable Unavailable [place], N Klever BOOKSEAMER BLINDSTITCH Unavailable Unavailable Sharon, N Klever BOOKSEAMER BLINDSTITCH Unavailable Unavailable [place], N Klever BOOKSEAMER BLINDSTITCH Unavailable Unavailable [place], N Klever BOOKSEAMER BLINDSTITCH Unavailable Unavailable [place], N Klever BOOKSEAMER BLINDSTITCH Unavailable Unavailable Sharon, N Klever BOOKSEAMER BLINDSTITCH Unavailable Unavailable [place], N Klever BOOKSEAMER BLINDSTITCH Unavailable Unavailable [place], N Klever BOOKSEAMER BLINDSTITCH Unavailable Unavailable [place], N Klever BOOKSEAMER BLINDSTITCH Unavailable Unavailable Sharon, N Klever BOOKSEAMER BLINDSTITCH Unavailable Unavailable [place], N Klever BOOKSEAMER BLINDSTITCH Unavailable Unavailable Sharon, N Klever BOOKSEAMER BLINDSTITCH Unavailable Unavailable [place], N Klever BOOKSEAMER BLINDSTITCH Unavailable Unavailable Sharon, N Klever BOOKSEAMER BLINDSTITCH Unavailable Unavailable [place], N Klever BOOKSEAMER BLINDSTITCH Unavailable Unavailable Sharon, N Klever BOOKSEAMER BLINDSTITCH Unavailable Unavailable [place], N Klever BOOKSEAMER BLINDSTITCH Unavailable Unavailable Sharon, N Klever BOOKSEAMER BLINDSTITCH Unavailable Unavailable [place], N Klever BOOKSEAMER BLINDSTITCH Unavailable Unavailable Sharon, N Klever BOOKSEAMER BLINDSTITCH Unavailable Unavailable Sharon, N Klever BOOKSEAMER BLINDSTITCH Unavailable Unavailable Re-disclosure Warning The records that you are about to access may contain information from federally-assisted alcohol or drug abuse programs. If such information is present, then the following federally mandated warning applies: This information has been disclosed to you from records protected by federal confidentiality rules (42 CFR part 2). The federal rules prohibit you from making any further disclosure of this information unless further disclosure is expressly permitted by the written consent of the person to whom it pertains or as otherwise permitted by 42 CFR part 2. A general authorization for the release of medical or other information is NOT sufficient for this purpose. The Federal rules restrict any use of the information to criminally investigate or prosecute any alcohol or drug abuse patient.The records that you are about to access may contain highly sensitive health information, the redisclosure of which is protected by Article 27-F of the [facility] Public Health law. If you continue you may have access to information: Regarding HIV / AIDS; Provided by facilities licensed or operated by the [facility] Office of Mental Health; or Provided by the [facility] Office for People With Developmental Disabilities. If such information is present, then the following [facility] mandated warning applies: This information has been disclosed to you from confidential records which are protected by state law. State law prohibits you from making any further disclosure of this information without the specific written consent of the person to whom it pertains, or as otherwise permitted by law. Any unauthorized further disclosure in violation of state law may result in a fine or nursing home sentence or both. A general authorization for the release of medical or other information is NOT sufficient authorization for further disc losure. Family History Family Member Name Family Member Gender Family Member Status Date o f Status Description Data Source(s) Unknown Unknown Problem MEDENT ([facility]) Unknown Male Problem MEDENT ([facility] () - 80 Unknown Female Problem MEDENT ([facility] ) Encounters Encounter Providers Location Date Indications Data Source(s ) Unknown [address] [place] [phone] 11/29/2020 12:00:00 AM EST eCW1 ([facility]) Unknown [address] [facility] [address] 11/25/2020 12:00:00 AM EST eCW1 ([facility]) Office Visit, Est Pt., Level [address] [place] [address] 10/21/2020 12:00:00 AM EST eCW1 ([facility]) Unknown [address] [place] [address] 10/18/2020 12:00:00 AM EST eCW1 ([facility]) [facility] D[facility]ology [address] [place] [phone] 10/07/2020 12:00:00 AM EST eCW1 ([facility]) Outpatient Referrer: Klever COTA.TORIN 09/09/2020 02:13:5 3 PM EDT [facility] Outpatient Attender: Klever LUBIN.ISHA 020 10:19:26 AM EDT - 09/06/2020 11:02:39 AM EDT [facility] [address] [facility] [address] 07/22/2020 12:00:00 AM EDT eCW1 ([facility]) Unknown [address] [place] [address], [place] [address] 06/02/2020 12:00:00 AM EDT eCW1 ([facility]) Outpatient [address] [place] [address] [place] [address] 04/19/2020 12:00:00 AM EDT eCW1 ([facility]) [address] [place] [address] 04/15/2020 12:00:00 AM EDT eCW1 ([facility]) [address] [place] [address] 03/12/2020 12:00:00 AM EDT eCW1 ([facility]) Outpatient Attender: Klever SHETTY.ISHA-SJCHUYITA 020 12:00:00 AM EDT - 02/23/2020 02:39:51 PM EDT [facility] Unknown [address] [place] [address], [place] [address] 02/23/2020 12:00:00 AM EDT eCW1 ([facility]) [address] [place] [address] 01/07/2020 12:00:00 AM EST eCW1 ([facility]) [address] [address] 12/29/2019 12:00:00 AM EST eCW1 ([facility]) [address] [address] 12/23/2019 12:00:00 AM EST eCW1 ([facility]) Outpatient Attender: DL ANDRADE [facility] Office 11/21 09:45:00 AM EST MEDENT [facility] [address] [facility] [address] 12/18/2019 12:00:00 AM EST eCW1 ([facility]) [facility] [address] [place] [address] 12/16/2019 12:00:00 AM EST eCW1 ([facility]) Outpatient Referrer: Yousif Monique MD 12/15/2019 02:33:00 PM EST [facility] Imogene [address] [place] [address] 12/15/2019 12:00:00 AM EST eCW1 ([facility]) [address] [address] 12/15/2019 12:00:00 AM EST eCW1 ([facility]) [address] [address] 12/11/2019 12:00:00 AM EST eCW1 [facility] Outpatient Attender: DL ANDRADE [facility] Office 11/19 09:45:00 AM EST MEDENT ([facility] [address] [address] 12/02/2019 12:00:00 AM EST eCW1 [facility]) Outpatient Referrer: Yousif Monique MD 11/26/2019 08:20:00 PM EST [facility] [address] [place] [address] 11/18/2019 12:00:00 AM EST eCW1 ([facility]) [address] [place] [address] 11/17/2019 12:00:00 AM EST eCW1 ([facility]) [address] [place] [address] 11/11/2019 12:00:00 AM EST eCW1 ([facility]) Immunizations Vaccine Date Status Description Data Source(s) IIV3. This is one of two codes replacing CVX 15, which is being retired. 07/13/2020 02:17:00 PM EDT completed eCW1 ([facility]) IIV3. This is one of two codes replacing CVX 15, which is being retired. 07/13/2020 02:17:00 PM EDT completed eCW1 ([facility]) IIV3. This is one of two codes replacing CVX 15, which is being retired. 07/13/2020 02:17:00 PM EDT completed eCW1 ([facility]) IIV3. This is one of two codes replacing CVX 15, which is being retired. 07/13/2020 02:17:00 PM EDT completed eCW1 ([facility]) Medications Medication Brand Name Start Date Product Form Dose Route Admi nistrative Instructions Pharmacy Instructions Status Indications Reaction Description Data Source(s) Rivaroxaban 15 MG UNK 12/29/2019 12:00:00 AM EST active 1 tablet with food eCW1 ([facility]) Rivaroxaban 15 MG UNK 12/29/2019 12:00:00 AM EST active 1 tablet with food eCW1 ([facility]) ammonium lactate 120 MG/ML Topical Cream Ammonium Lactate 11/24/2019 12:00:00 AM EST active MEDENT ([facility] Spironolactone 25 MG Oral Tablet Spironolactone 25 MG 2018 12:00:00 AM EST active 1/2 tablet eCW1 ( [facility]) Spironolactone 25 MG Oral Tablet Spironolactone 25 MG 2018 12:00:00 AM EST active 1/2 tablet eCW1 ( [facility]) Spironolactone 25 MG Oral Tablet Spironolactone 25 MG 2018 12:00:00 AM EST active 1/2 tablet eCW1 ( [facility]) Insurance Providers Payer name Policy type / Coverage type Policy ID Covered green party ID Covered green party's relationship to villagran Policy Villagran Plan Information [employer] [id number] SP [id number] [employer] MED[employer]ARE [id number] [facility] 06 [id number] [employer] O [id number] S [id number] [employer] Commercial [id number] Self [id number] ANS-Health Maintenance Organization ( O) [id number] Today's Options Medicare Commercial [id number] Self [id number] [employer] Commercial [id number] Self [id number] ANSI-Health Maintenance Organization ( O) [id number] ANSI-Health Maintenance Organization ( O) [id number] ANSI-Health Maintenance Organization ( O) [id number] ANSI-Health Maintenance Organization ( O) [id number] [employer] Commercial [id number] WELLCARE [id number] SP [id number] TODAYS OPTIONS [id number] SP [id number] ANSI-Medicare Part B [id number] ANSI-Medicare Part B [id number] ANSI-Medicare Part B [id number] [employer] Commercial [id number] Self [id number] Today's [employer] Medicare Commercial [id number] Self [id number] ANS-Medicare Part B [id number] ANSI-Medicare Part B [id number] [employer] Commercial [id number] Self [id number] [employer] Commercial [id number] Self [id number] Today's Options Medicare Commercial [id number] Self [id number] [employer] Commercial [id number] Self [id number] Today[employer] Commercial [id number] Self [id number] TODAYS OPTIONS/[employer] [place] O [id number] S [id number] MEDICARE [id number] SP [id number] A TODAYS OPTIONS [id number] SP [id number] Tod[employer] [id number] 0 [id number] [employer] Commercial Self [id number] Problems, Conditions, and Diagnoses Code Display Name Description Problem Type Effective Dates Data Source(s) D22.62 [id number] Melanocytic nevi of left upper l imb, including shoulder Problem 10/21/2020 12:00:00 AM EST eCW1 ([facility]) D22.71 [id number] Melanocytic nevi of right lower limb, inc luding hip Problem 10/21/2020 12:00:00 AM EST eCW1 ([facility]) D22.72 [id number] Melanocytic nevi of left lower l imb, including hip Problem 10/21/2020 12:00:00 AM EST eCW1 ([facility]) L81.4 734962135 Lentigines Problem 10/21/2020 12:00:00 AM ES T eCW1 ([facility]) D22.5 499560561 Melanocytic nevi of trunk Problem 10/21/2020 12:00:00 AM EST eCW1 ([facility]) D22.61 496541513 Melanocytic nevi of right upper limb, including shoulder Problem 10/21/2020 12:00:00 AM EST eCW1 ([facility]) L91.8 703581217 Skin tag Problem 10/21/2020 12:00:00 AM ES T eCW1 ([facility]) L85.3 21588672 Xerosis of skin Problem 10/21/2020 12:00:00 AM EST eCW1 ([facility]) B35.3 3148321 Tinea pedis of both feet Problem 10/21/2020 12:00:00 AM EST eCW1 ([facility]) L82.1 [id number] SK (seborrheic keratosis) Problem 10/21/2020 12:00:00 AM EST eCW1 ([facility]) 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 Problem 10/21/2020 12:00:00 A M EST eCW1 ([facility]) K80.20 65732509 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 Problem 12/29/2019 12:00:00 AM EST eCW1 ([facility]) 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 Problem 12/29/2019 12:00:00 AM EST eCW1 ([facility]) K80.20 02689192 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 Problem 12/29/2019 12:00:00 AM EST eCW1 ([facility]) 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 Problem 12/29/2019 12:00:00 AM EST eCW1 ([facility]) [id number] Plantar fascial fibromatosis Plantar fascial fibromato sis Problem 12/18/2019 12:00:00 AM EST MEDENT ([facility] I48.0 [id number] Paroxysmal atrial fibrillation Problem 11/17/2019 12:00:00 AM EST eCW1 ([facility]) I48.0 574327879 Paroxysmal atrial fibrillation Problem 11/17/2019 12:00:00 AM EST eCW1 ([facility]) I10 Essential (primary) hypertension Essential (primary) h ypertension Diagnosis 09/06/2020 10:19:26 AM EDT [facility] E78.00 Pure hypercholesterolemia, unspecified P ure hypercholesterolemia, unspecified Diagnosis 09/06/2020 10:19:26 AM EDT [facility] 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), unspecified, with unspecified angina pectoris Atherosclerosis of coronary artery bypas Diagnosis 09/06/2020 10:19:26 AM EDT [facility] I50.9 Heart failure, unspecified Heart failure, unspecified Diagnosis 09/06/2020 10:19:26 AM EDT [facility] I48.92 Unspecified atrial flutter Unspecified atrial flutter Diagnosis 09/06/2020 10:19:26 AM EDT [facility] Surgeries/Procedures Procedure Description Date Indications Data Source(s) DEBRIDEMENT NAIL ANY METHOD 11/08/2020 12:00:00 AM EST MEDENT ([facility] DEBRIDEMENT NAIL ANY METHOD 08/31/2020 12:00:00 AM EDT MEDENT ([facility] DEBRIDEMENT NAIL ANY METHOD 06/22/2020 12:00:00 AM EDT MEDENT ([facility] DEBRIDEMENT NAIL ANY METHOD 04/13/2020 12:00:00 AM EDT MEDENT ([facility] Office Visit, Est Pt., Level 4 PC 03/12/2020 12:00:00 AM EDT eCW ([facility]) Office Visit, Est Pt., Level 2 FC 03/12/2020 12:00:00 AM EDT eC ([facility]) DEBRIDEMENT NAIL ANY METHOD 02/02/2020 12:00:00 AM EDT MEDENT ([facility] Office Visit, Est Pt., Level 3 PC 01/07/2020 12:00:00 AM EST eCW1 ([facility]) Strapping Foot Or Ankle 12/03/2019 12:00:00 AM EST MEDENT ([facility] DEBRIDEMENT NAIL ANY METHOD 11/24/2019 12:00:00 AM EST MEDENT ([facility] Results ID Date Data Source [id number] 09/14/2020 08:12:43 AM EDT [facility] Name Value Range Interpretation Code Description Data Shelia rce(s) Supporting Document(s) &PDF [facility] AJMVAj3uIkDQOnOc47/MRHynELVhy4DdUMvbHFd6MEimZXLoG8VwuQqbBMVBFvTZGqvJCVkbMMYfNIVl FcG [file] ICAgICAgICAgICAgICAgICAgICAgICAgICAgICAgICAgICAgICAgICAgICAgICAgICAgICAgICAgICAg ICANCiAgICAgICAgICAgICAgICAgICAgICAgICAgIC AgICAgICAgICAgICAgICAgICAgICAgICAgICAgICAgICAgICAgICAgICAgICAgICAgICAgICAgICAgIC AgICAgICAgICAgICANCiAgICAgICAgICAgICAgICAgICAgICAgICAgICAgICAgICAgICAgICAgICAgIC AgICAgICAgICAgICAgICAgICAgICAgICAgICAgICAg ICAgICAgICAgICAgICAgICAgICAgICANCiAgICAgICAgICAgICAgICAgICAgICAgICAgICAgICAgICAg ICAgICAgICAgICAgICAgICAgICAgICAgICAgICAgICAgICAgICAgICAgICAgICAgICAgICAgICAgICAg ICAgICANCiAgICAgICAgICAgICAgICAgICAgICAgIC AgICAgICAgICAgICAgICAgICAgICAgICAgICAgICAgICAgICAgICAgICAgICAgICAgICAgICAgICAgIC AgICAgICAgICAgICAgICANCiAgICAgICAgICAgICAgICAgICAgICAgICAgICAgICAgICAgICAgICAgIC AgICAgICAgICAgICAgICAgICAgICAgICAgICAgICAg ICAgICAgICAgICAgICAgICAgICAgICAgICANCiAgICAgICAgICAgICAgICAgICAgICAgICAgICAgICAg ICAgICAgICAgICAgICAgICAgICAgICAgICAgICAgICAgICAgICAgICAgICAgICAgICAgICAgICAgICAg ICAgICAgICANCiAgICAgICAgICAgICAgICAgICAgIC AgICAgICAgICAgICAgICAgICAgICAgICAgICAgICAgICAgICAgICAgICAgICAgICAgICAgICAgICAgIC AgICAgICAgICAgICAgICAgICANCiAgICAgICAgICAgICAgICAgICAgICAgICAgICAgICAgICAgICAgIC AgICAgICAgICAgICAgICAgICAgICAgICAgICAgICAg ICAgICAgICAgICAgICAgICAgICAgICAgICAgICANCiAgICAgICAgICAgICAgICAgICAgICAgICAgICAg ICAgICAgICAgICAgICAgICAgICAgICAgICAgICAgICAgICAgICAgICAgICAgICAgICAgICAgICAgICAg ICAgICAgICAgICANCjw/wBCyJ6ghpUDhjpS4B8oqWn 9KUa2SOW9nn8HtKOKcGUscusUpNfwDIyDxWKZwFtrUNpw4FUdfWZ1ItRVmL6LiC3RoPUjxQR9JVGQcWV YyrJWvQIShPDRoXnV7TPZnGUbrEZ2NeTHuYSxoMZBpMJHuUhXtWKVxJV7TWBMfC297eaRsKb3AFx7YSp TdMP6qmm5KJmZwHQAbHvvUCmz6CMfiAO6NbXOjQ7Xs rIQgo8lIKdFtC0AXIWO7TDTcNz5RLNJvZmUpFFXjAXixUJ1vMYZxPAJMhEenxlT6DV9LSH3erlPfVF1F WrVaTr1cDy1FNeNpW7RaC6YhPWSwNWBTTCfcFA3KTEXtVIG4YFUxNOCvCMXDBgXlF77hJX8PP4Gmv46v ZyO5RXEpHrQnITuwSQ35qLzcjqHnwMJjrMqmUU0XCy 4+LPlyllDwAhjCOjwwJDVKAlXiQwTANsXzZNZxBKBuUQZnJsQ3AeNcQb8NQEUkYTDjYMPtFcKyUPBsEE BiCDfsDTYcJKG4JfU1BBJtJIUnFD7VKiYkRXJvSMlzNGFdVZBqIEBkey9CRJAeWYOlNXN1YHEgHSSzPQ QaCDxuFYJcZYSxRjOfZMLfKOMqPV2MOkJmVCUzQIG6 MPYeOOKsDECfdv2YDPFdQKAuWjG8NFLcMOSgVSFwZOgkLBSpVYZjGTP0HXMhLLUbIO0WGbBiMEZkKQD5 TLKxKHInCHArce0QBAXgNHInOCIlQPWsVYHxCKMmDNnmEKRuCZY9XZdzHSNxJPAsZB0QHdFwDUJkODAu MWFhOUUtVWPclv0CIDGuLJNkJiG6SdUjNKVmVNGuOS ztJXGjODS3WZDiGODlVUWcNY4DGoFpMYHbHNe3EYmwKVZkHIMjpr5SGNGaDVSdQqI2HMWtKNAkUFHxYK bnZAAiWIN8BXv1QWDdUGLpKF0KGrSdNWKiVFC8VbKrTHKuTHMzgy4XDPGaUCIbVzI3UGMzZFNiGMNhTM geOLEyUWQ2TFI1VOLcCJPwLI9HGfZgKPYhWPc7TMrf XMOkCAAfsb2ZdLWynKqjnd7OWFpQLr9PkLsuMXJaBKtdZr8mbILoLTMhIZFKFt2MzmJzBURbDYFITDcw GQGuTJXxKYAvCeOgAQV9Lrf7NrJvSJT1CNyeWVL2GfPuAVBaFzA4MKFiLoWgNvCpZhtjKOBcCSAhIMfg SMIeAau8BoP7FyM+LL3jTKw+Uu9Ue3OfafM9hdNgCSrvVON9Nx7MMLIGY1OUAi== ID Date Data Source TOTAL IRON BINDING CAPACIT 11/17/2019 12:00:00 AM EST W1 ( [facility]) Name Value Range Interpretation Code Description Data Shelia rce(s) Supporting Document(s) 12.7 19.7-50.0 PERCENT SATURATION eCW1 ([facility]) 49 65-175 IRON (FE) eCW1 ([facility]) 386 250-450 TOTAL IRON BINDING CAPACI TY eCW1 ([facility]) Procedure Social History Code Duration Value Status Description Data Source(s ) Smoking 10/21/2020 12:00:00 AM EST Former Smoker completed Former Smoker eCW1 ([facility]) Smoking 10/21/2020 12:00:00 AM EST Former Smoker completed Former Smoker eCW1 ([facility]) Smoking 10/21/2020 12:00:00 AM EST Former Smoker completed Former Smoker eCW1 ([facility]) Smoking 04/19/2020 12:00:00 AM EDT Former Smoker completed Former Smoker eCW1 ([facility]) Smoking 04/19/2020 12:00:00 AM EDT Former Smoker completed Former Smoker eCW1 ([facility]) Smoking 04/19/2020 12:00:00 AM EDT Former Smoker completed Former Smoker eCW1 ([facility]) Vital Signs ID Date Data Source UNK Name Value Range Interpretation Code Description Data Source(s) Diastolic blood pressure 64 mm[Hg] 64 mm[Hg] eCW1 ([facility]) Systolic blood pressure 116 mm[Hg] 116 mm[Hg] e CW1 ([facility]) Body mass index (BMI) [Ratio] 30.12 kg/m2 30.12 kg/m2 W1 ([facility]) Body height 69 [in_i] 69 [in_i] W1 ([facility]) Body weight 204.0 [lb_av] 204.0 [lb_av] eCW1 ([facility]) Diastolic blood pressure 60 mm[Hg] 60 mm[Hg] eCW1 ([facility]) Systolic blood pressure 120 mm[Hg] 120 mm[Hg] e CW1 ([facility]) Body temperature 97.6 [degF] 97.6 [degF] eCW1 ( [facility]) Respiratory rate 20 /min 20 /min eCW1 ([facility]) Heart rate 62 /min 62 /min eCW1 ([facility]) Body mass index (BMI) [Ratio] 30.86 kg/m2 30.86 kg/m2 W1 ([facility]) Body height 69 [in_i] 69 [in_i] eCW1 ([facility]) Body weight 209 [lb_av] 209 [lb_av] eCW1 ([facility]) Diastolic blood pressure 62 mm[Hg] 62 mm[Hg] eCW1 ([facility]) Systolic blood pressure 120 mm[Hg] 120 mm[Hg] e CW1 ([facility]) Body temperature 97.6 [degF] 97.6 [degF] eCW1 ( [facility]) Respiratory rate 20 /min 20 /min eCW1 ([facility]) Heart rate 73 /min 73 /min eCW1 ([facility]) Body mass index (BMI) [Ratio] 30.24 kg/m2 30.24 kg/m2 W1 ([facility]) Body height 69 [in_us] 69 [in_us] eCW1 ([facility]) Body weight Measured 204.8 [lb_av] 204.8 [lb_av ] eCW1 ([facility]) Diastolic blood pressure 76 mm[Hg] 76 mm[Hg] eCW1 ([facility]) Systolic blood pressure 124 mm[Hg] 124 mm[Hg] e CW1 ([facility]) Body temperature 96.9 [degF] 96.9 [degF] eCW1 ( [facility]) Respiratory rate 20 /min 20 /min eCW1 ([facility]) Heart rate 57 /min 57 /min eCW1 ([facility]) Body mass index (BMI) [Ratio] 30.51 kg/m2 30.51 kg/m2 eCW1 ([facility]) Body height 69 [in_us] 69 [in_us] eCW1 ([facility]) Body weight Measured 206.6 [lb_av] 206.6 [lb_av ] eCW1 ([facility]) Diastolic blood pressure 68 mm[Hg] 68 mm[Hg] eCW1 ([facility]) Systolic blood pressure 120 mm[Hg] 120 mm[Hg] e CW1 ([facility]) Body temperature 97.3 [degF] 97.3 [degF] eCW1 ( [facility]) Respiratory rate 20 /min 20 /min eCW1 ([facility]) Heart rate 49 /min 49 /min eCW1 ([facility]) Body mass index (BMI) [Ratio] 30.54 kg/m2 30.54 kg/m2 eCW1 ([facility]) Body height 69 [in_us] 69 [in_us] eCW1 ([facility]) Body weight Measured 206.8 [lb_av] 206.8 [lb_av ] eCW1 ([facility]) Diastolic blood pressure 64 mm[Hg] 64 mm[Hg] eCW1 ([facility]) Systolic blood pressure 118 mm[Hg] 118 mm[Hg] e CW1 ([facility]) Body temperature 97.3 [degF] 97.3 [degF] eCW1 ( [facility]) Respiratory rate 18 /min 18 /min eCW1 ([facility]) Heart rate 89 /min 89 /min eCW1 ([facility]) Body mass index (BMI) [Ratio] 30.80 kg/m2 30.80 kg/m2 W1 ([facility]) Body height 69 [in_us] 69 [in_us] eCW1 ([facility]) Body weight Measured 208.6 [lb_av] 208.6 [lb_av ] eCW1 ([facility]) Diastolic blood pressure 60 mm[Hg] 60 mm[Hg] eCW1 ([facility]) Systolic blood pressure 120 mm[Hg] 120 mm[Hg] e CW1 ([facility]) Body temperature 97.4 [degF] 97.4 [degF] eCW1 ( [facility]) Respiratory rate 20 /min 20 /min eCW1 ([facility]) Heart rate 60 /min 60 /min eCW1 ([facility]) Body mass index (BMI) [Ratio] 31.57 kg/m2 31.57 kg/m2 eCW1 ([facility]) Body height 69 [in_us] 69 [in_us] eCW1 ([facility]) Body weight Measured 213.8 [lb_av] 213.8 [lb_av ] eCW1 ([facility]) Patient Treatment Plan of Care Planned Activity Planned Date Details Description Data Source (s) Rivaroxaban 15 MG 12/29/2019 12:00:00 AM EST eCW1 ([facility]) Spironolactone 25 MG Oral Tablet 11/18/2019 12:00:00 AM EST eCW1 ([facility]) Spironolactone 25 MG Oral Tablet 11/18/2019 12:00:00 AM EST eCW1 ([facility])
--- NOTE | 2021-01-09 17:27 | REP ---
INDICATION: fall, hit head, on blood thinner. COMPARISON: 04/15/2020 TECHNIQUE: CT BRAIN PERFORMED IN THE AXIAL PLANE. CORONAL RECONSTRUCTION IMAGES ARE PERFORMED. FINDINGS: Lateral ventricles midline symmetric dilated and proportionate to the moderately severe cerebral atrophy seen throughout the cerebral hemispheres and the appearance is unchanged. Atrophy is greatest in the temporal and frontal lobes but present throughout. Basal ganglia symmetric and unchanged. Welch-white junction differentiation well maintained. There is periventricular, deep central and subcortical white matter heterogeneity seen suggesting small vessel ischemic disease. There is no intra or extra-axial hemorrhage, mass, mass effect or edema. No vascular territory infarct. The brainstem was unremarkable. Cerebellum shows some mild atrophy but no posterior fossa hemorrhage. Basal cisterns intact. Mastoids and visualized sinuses are clear. The skull base and calvarium shows no fracture or focal lesion. There are heavy calcifications in the carotid siphons. IMPRESSION: Stable CT brain with moderate atrophy, chronic small vessel ischemic changes and heavy vascular calcifications in the vertebrobasilar arteries. No acute infarct, intracranial hemorrhage, mass or mass effect. <Electronically signed by Remi Littlejohn > 01/09/21 [id number]
--- NOTE | 2021-01-09 17:32 | REP ---
INDICATION: fall, hit head, on blood thinner. COMPARISON: None. TECHNIQUE: Axial soft tissue and bone windows with coronal and sagittal bone window reconstructions through the facial bones. FINDINGS: Bone windows of the lower calvarium including the occipital bone and the anterior and middle cranial fossa floors were unremarkable and without fracture. Mastoid aeration and visualized sinuses are clear. The zygomatic arches, mandible and alveolar ridge of the maxilla are without fracture. Maxilla is edentulous. There is very subtle deviation of the nasal septum towards the right side. Nasal bones are intact. Bony maxillary sinus churchill, orbital floors, orbital struts and zygomatic arches were all intact. The orbits including extraocular muscles, optic nerves, globes and intraconal fat were symmetric and unremarkable. That portion of parotid and submandibular gland seen were normal. Upper cervical spine and cervical cranial junction grossly intact. There are vascular calcifications in the carotid siphons and vertebral arteries. IMPRESSION: No visible facial bone fracture. Orbits and contents symmetric and grossly normal. Visualized sinuses clear without fractured sinus churchill or air-fluid levels. The zygomatic arches, mandible, maxilla and skull base all without fracture. <Electronically signed by Remi Littlejohn > 01/09/21 [id number]
--- NOTE | 2021-01-09 17:38 | REP ---
INDICATION: fall, hit head, on blood thinner. COMPARISON: 04/15/2020 TECHNIQUE: Trauma CT protocol with coronal and sagittal bone window reconstructions. FINDINGS: [employer] image shows a cervical collar in place there is some loss of normal cervical lordosis. Cervical spondylosis greatest at C6-7 with disc space narrowing less at C5-6 and C4-5 but with anterior osteophytes at all levels from C4-5 through C7-T1. Small posterior osteophytes at C6-7. No compression fractures or destructive lesions. The dens shows no fracture. It abuts the anterior arch of C1 on the sagittal reconstruction and has normal relationship to the lateral masses on the coronal images. There is facet arthropathy at multiple levels. Central canal stenosis due to combined factors of posterior splenic ridging and disc bulge at the C6-7 level as before, causing a moderately severe spinal stenosis with an AP canal diameter of 7.3 mm. There is foraminal encroachment bilaterally at C6-7 and minimally on the left at C5-6 with the other levels intact. The spinous processes, lamina, pedicles, facets, transverse processes and transverse foramina show no acute finding. Multiple facets show arthropathy. No prevertebral swelling or compression deformity. Airway intact. Craniocervical junction and cervicothoracic junction align normally. IMPRESSION: Cervical spondylosis from C4-5 through C7-T1, greatest at C6-7 with combined factors causing moderate central canal stenosis with an AP diameter of 7.3 mm. Foraminal encroachment at this size level bilaterally and mild at C 5-6 on the left. No compression fracture or malalignment. Craniocervical junction and cervicothoracic alignment normal. <Electronically signed by Remi Littlejohn > 01/09/21 [id number]
--- OUTSIDE RECORDS SUMMARY | 2021-01-09 17:58 | CCD ---
Author Author [facility] Organization [facility] Address Unknown Phone Unavailable Care Team Providers Care Bobbin Winder Name Role Phone Federico ANDRADE DPM Unavailable [...] Unavailable Unavailable Federico ANDRADE DPM Unavailable Unavailable MAJAKFederico DPM Unavailable Unavailable Kayden, Dominique Dodd MD [...] Dodd MD Unavailable Unavailable Sharon, N Klever ASSISTANT STORE MANAGER OPERATIONS Unavailable Unavailable Matthews N Klever ASSISTANT STORE MANAGER OPERATIONS Unavailable Unavailable Matthews N Klever ASSISTANT STORE MANAGER OPERATIONS Unavailable Unavailable Matthews, N Klever ASSISTANT STORE MANAGER OPERATIONS Unavailable Unavailable Sharon, N Klever ASSISTANT STORE MANAGER OPERATIONS Unavailable Unavailable Sharon, N Klever ASSISTANT STORE MANAGER OPERATIONS Unavailable Unavailable Matthews, N Klever ASSISTANT STORE MANAGER OPERATIONS Unavailable Unavailable Sharon, N Klever ASSISTANT STORE MANAGER OPERATIONS Unavailable Unavailable Sharon, N Klever ASSISTANT STORE MANAGER OPERATIONS Unavailable Unavailable Matthews, N Klever ASSISTANT STORE MANAGER OPERATIONS Unavailable Unavailable Matthews, N Klever ASSISTANT STORE MANAGER OPERATIONS Unavailable Unavailable Matthews, N Klever ASSISTANT STORE MANAGER OPERATIONS Unavailable Unavailable Matthews, N Klever ASSISTANT STORE MANAGER OPERATIONS Unavailable Unavailable Matthews, N Klever ASSISTANT STORE MANAGER OPERATIONS Unavailable Unavailable Sharon, N Klever ASSISTANT STORE MANAGER OPERATIONS Unavailable Unavailable Sharon, N Klever ASSISTANT STORE MANAGER OPERATIONS Unavailable Unavailable Matthews, N Klever ASSISTANT STORE MANAGER OPERATIONS Unavailable Unavailable Matthews, N Klever ASSISTANT STORE MANAGER OPERATIONS Unavailable Unavailable Sharon, N Klever ASSISTANT STORE MANAGER OPERATIONS Unavailable Unavailable Matthews, N Klever ASSISTANT STORE MANAGER OPERATIONS Unavailable Unavailable Sharon, N Klever ASSISTANT STORE MANAGER OPERATIONS Unavailable Unavailable Matthews, N Klever ASSISTANT STORE MANAGER OPERATIONS Unavailable Unavailable Sharon, N Klever ASSISTANT STORE MANAGER OPERATIONS Unavailable Unavailable Matthews, N Klever ASSISTANT STORE MANAGER OPERATIONS Unavailable Unavailable Matthews, N Klever ASSISTANT STORE MANAGER OPERATIONS Unavailable Unavailable Sharon, N Klever ASSISTANT STORE MANAGER OPERATIONS Unavailable Unavailable Sharon, N Klever ASSISTANT STORE MANAGER OPERATIONS Unavailable Unavailable Sharon, N Klever ASSISTANT STORE MANAGER OPERATIONS Unavailable Unavailable Sharon, N Klever ASSISTANT STORE MANAGER OPERATIONS Unavailable Unavailable Matthews, N Klever ASSISTANT STORE MANAGER OPERATIONS Unavailable Unavailable Matthews, N Klever ASSISTANT STORE MANAGER OPERATIONS Unavailable Unavailable Re-disclosure Warning The records that [...] is protected by Article 27-F of the [facility] Public Health law. If you continue you may have access to information: Regarding HIV / AIDS; Provided by facilities licensed or operated by the [facility] Office of Mental Health; or Provided by the [facility] Office for People With Developmental Disabilities. If such information is present, then the following [facility] mandated warning applies: This information has been [...] law may result in a fine or prison sentence or both. A general authorization for [...] () - 80 Unknown Female Problem MEDENT ([facility] ) Encounters Encounter Providers Location Date Indications Data Source(s ) Unknown [address] [facility] [address] 11/29/2020 12:00:00 AM EST eCW1 ([facility]) Unknown [address] [address] 11/25/2020 12:00:00 AM EST eCW1 ([facility]) Office Visit, Est Pt., Level 4 PC [address] [place] [address] 10/21/2020 12:00:00 AM EST eCW1 ([facility]) Unknown [address] [place] [address] 10/18/2020 12:00:00 AM EST eCW1 ([facility]) [facility] Dermatology [address] [place] [address] 10/07/2020 12:00:00 AM EST eCW1 ([facility]) Outpatient Referrer: Klever COTA.TORIN 09/09/2020 02:13:5 3 PM EDT [facility] Outpatient Attender: Klever LUBIN.ISHA 020 10:19:26 AM EDT - 09/06/2020 11:02:39 AM EDT [place] [address] 07/22/2020 12:00:00 AM EDT [facility]CW1 [facility]) Unknown [address] [place] [address], [place] [address] 06/02/2020 12:00:00 AM EDT eCW1 [facility]) Outpatient [address] [place] [address] [place] [address] 04/19/2020 12:00:00 AM EDT eCW1 ([facility]) [address] [place] [address] 04/15/2020 12:00:00 AM EDT eCW1 ([facility]) [address] [place] [address] 03/12/2020 12:00:00 AM EDT eCW1 ([facility]) Outpatient Attender: Klever SHETTY.ISHA-SJCHUYITA 020 12:00:00 AM EDT - 02/23/2020 02:39:51 PM EDT [facility] Unknown [address] [place] [address], [place] [address] 02/23/2020 12:00:00 AM EDT eCW1 ([facility]) [address] [place] [address] 01/07/2020 12:00:00 AM EST eCW1 ([facility]) [address] [place] [address] 12/29/2019 12:00:00 AM EST eCW1 ([facility]) [address] [place] [address] 12/23/2019 12:00:00 AM EST eCW1 ([facility]) Outpatient Attender: DL ANDRADE [facility] 11/21 09:45:00 AM EST MEDENT ([facility] [address] [facility] [address] 12/18/2019 12:00:00 AM EST eCW1 ([facility]) [facility] [address] [place] [address] 12/16/2019 12:00:00 AM EST eCW1 [facility] Outpatient Referrer: Yousif Monique MD 12/15/2019 02:33:00 PM EST [facility] [place] [address] [place] [address] 12/15/2019 12:00:00 AM EST [facility]CW1 [facility] [address] [address] 12/15/2019 12:00:00 AM EST eCW1 [facility] [address] [address] 12/11/2019 12:00:00 AM EST eCW1 ([facility]) Outpatient Attender: DL ANDRADE [facility] 11/19 09:45:00 AM EST MEDENT ([facility] [address] [address] 12/02/2019 12:00:00 AM EST eCW1 [facility]) Outpatient Referrer: Yousif Monique MD 11/26/2019 08:20:00 PM EST [facility] [address] [place] [address] 11/18/2019 12:00:00 AM EST eCW1 ([facility]) [address] [place] [address] 11/17/2019 12:00:00 AM EST eCW1 [facility]) [address] [place] [address] 11/11/2019 12:00:00 AM EST eCW1 ([facility]) Immunizations Vaccine Date Status Description Data Source(s) IIV3. This is one of two codes replacing CVX 15, which is being retired. 07/13/2020 02:17:00 PM EDT completed eCW1 ([facility]) IIV3. This is one of two codes replacing CVX 15, which is being retired. 07/13/2020 02:17:00 PM EDT completed eCW1 ([facility]) IIV3. This is one of two codes replacing CVX 15, which is being retired. 07/13/2020 02:17:00 PM EDT completed eCW1 ([facility]) IIV3. This is one of two codes replacing CVX 15, which is being retired. 07/13/2020 02:17:00 PM EDT completed eCW1 ([facility]) Medications Medication Brand Name Start Date Product Form Dose Route Admi nistrative Instructions Pharmacy Instructions Status Indications Reaction Description Data Source(s) Rivaroxaban 15 MG UNK 12/29/2019 12:00:00 AM EST active 1 tablet with food eCW1 ([facility]) Rivaroxaban 15 MG UNK 12/29/2019 12:00:00 AM EST active 1 tablet with food eCW1 ([facility]) ammonium lactate 120 MG/ML Topical Cream Ammonium Lactate 11/24/2019 12:00:00 AM EST active MEDENT ([facility] Spironolactone 25 MG Oral Tablet Spironolactone 25 MG 2018 12:00:00 AM EST active 1/2 tablet eCW1 ( [facility]) Spironolactone 25 MG Oral Tablet Spironolactone 25 MG 2018 12:00:00 AM EST active 1/2 tablet eCW1 ( [facility]) Spironolactone 25 MG Oral Tablet Spironolactone 25 MG 2018 12:00:00 AM EST active 1/2 tablet eCW1 ( [facility]) Insurance Providers Payer name Policy type / Coverage type Policy ID Covered green party ID Covered green party's relationship to villagran Policy Villagran Plan Information [employer] [id number] SP [id number] [facility] MED[facility] [id number] [facility] 06 [id number] [facility] O [id number] S [id number] [employer] [id number] Self [id number] ANSI-[employer] Maintenance Organization ( O) [id number] Today's Options Medicare Commercial [id number] Self [id number] [employer] [facility] Commercial [id number] Self [id number] ANSI-Health Maintenance Organization ( O) [id number] ANSI-Health Maintenance Organization ( O) [id number] ANSI-Health Maintenance Organization ( O) [id number] ANSI-Health Maintenance Organization ( O) [id number] [employer] Commercial [id number] Self [id number] WE[employer] [id number] SP [id number] TODAYS OPTIONS [id number] SP [id number] ANSI-Medicare Part B [id number] ANSI-Medicare Part B [id number] ANSI-Medicare Part B [id number] [employer] Commercial [id number] Self [id number] [employer] Medicare Commercial [id number] Self [id number] ANSI-Medicare Part B [id number] ANSI-Medicare Part B [id number] [employer] Commercial [id number] Self [id number] [employer] Commercial [id number] Self [id number] [employer] Medicare Commercial [id number] Self [id number] [employer] Commercial [id number] Self [id number] Today's Option Commercial [id number] Self [id number] TODAYS OPTIONS/EMIRATI O [id number] S [id number] MEDICARE [id number] SP [id number] A [employer] OPTIONS [id number] SP [id number] Tod[employer] Options [employer] [id number] 0 [id number] [employer] Commercial Self [id number] Problems, Conditions, and Diagnoses Code Display Name Description Problem Type Effective Dates Data Source(s) D22.62 [id number] Melanocytic nevi of left upper l imb, including shoulder Problem 10/21/2020 12:00:00 AM EST eCW1 ([facility]) D22.71 [id number] Melanocytic nevi of right lower limb, inc luding hip Problem 10/21/2020 12:00:00 AM EST eCW1 ([facility]) D22.72 [id number] Melanocytic nevi of left lower l imb, including hip Problem 10/21/2020 12:00:00 AM EST eCW1 ([facility]) L81.4 426159977 Lentigines Problem 10/21/2020 12:00:00 AM ES T eCW1 ([facility]) D22.5 065664848 Melanocytic nevi of trunk Problem 10/21/2020 12:00:00 AM EST eCW1 ([facility]) D22.61 294291751 Melanocytic nevi of right upper limb, including shoulder Problem 10/21/2020 12:00:00 AM EST eCW1 ([facility]) L91.8 545361768 Skin tag Problem 10/21/2020 12:00:00 AM ES T eCW1 ([facility]) L85.3 59711284 Xerosis of skin Problem 10/21/2020 12:00:00 AM EST eCW1 ([facility]) B35.3 4948938 Tinea pedis of both feet Problem 10/21/2020 12:00:00 AM EST eCW1 ([facility]) L82.1 [id number] SK (seborrheic keratosis) Problem 10/21/2020 12:00:00 AM EST eCW1 ([facility]) 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 Problem 10/21/2020 12:00:00 A M EST eCW1 ([facility]) K80.20 74577619 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 Problem 12/29/2019 12:00:00 AM EST eCW1 ([facility]) 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 Problem 12/29/2019 12:00:00 AM EST eCW1 ([facility]) K80.20 95520186 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 Problem 12/29/2019 12:00:00 AM EST eCW1 ([facility]) 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 E78.00 Pure hypercholesterolemia, unspecified P ure hypercholesterolemia, unspecified Diagnosis 09/06/2020 10:19:26 AM EDT 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 I50.9 Heart failure, unspecified Heart failure, unspecified Diagnosis 09/06/2020 10:19:26 AM EDT [facility] I48.92 Unspecified atrial flutter Unspecified atrial flutter Diagnosis 09/06/2020 10:19:26 AM EDT [facility] Surgeries/Procedures Procedure Description Date Indications Data Source(s) DEBRIDEMENT NAIL ANY METHOD 11/08/2020 12:00:00 AM EST MEDENT ([facility] DEBRIDEMENT NAIL ANY METHOD 08/31/2020 12:00:00 AM EDT MEDENT ([facility] DEBRIDEMENT NAIL ANY METHOD 06/22/2020 12:00:00 AM EDT MEDENT ([facility] DEBRIDEMENT NAIL ANY METHOD 04/13/2020 12:00:00 AM EDT MEDENT ([facility] Office Visit, Est Pt., Level 4 PC 03/12/2020 12:00:00 AM EDT eCW ([facility]) Office Visit, Est Pt., Level 2 FC 03/12/2020 12:00:00 AM EDT eC ([facility]) DEBRIDEMENT NAIL ANY METHOD 02/02/2020 12:00:00 AM EDT MEDENT ([facility] Office Visit, Est Pt., Level 3 PC 01/07/2020 12:00:00 AM EST eCW1 ([facility]) Strapping Foot Or Ankle 12/03/2019 12:00:00 AM EST MEDENT ([facility] DEBRIDEMENT NAIL ANY METHOD 11/24/2019 12:00:00 AM EST MEDENT ([facility] Results ID Date Data Source [id number] 09/14/2020 08:12:43 AM EDT [facility] Name Value Range Interpretation Code Description Data Shelia rce(s) Supporting Document(s) &PDF [facility] GPRMUy0jTlZTCzDk80/PDMwjMGWon4ZwINakESk7YOsmWXLyO6ZikUphVVYFHjGTPdwHRGpnFQVbNIBh FcG [file] ICAgICAgICAgICAgICAgICAgICAgICAgICAgICAgICAgICAgICAgICAgICAgICAgICAgICAgICAgICAg ICANCiAgICAgICAgICAgICAgICAgICAgICAgICAgIC AgICAgICAgICAgICAgICAgICAgICAgICAgICAgICAgICAgICAgICAgICAgICAgICAgICAgICAgICAgIC AgICAgICAgICAgICANCiAgICAgICAgICAgICAgICAgICAgICAgICAgICAgICAgICAgICAgICAgICAgIC AgICAgICAgICAgICAgICAgICAgICAgICAgICAgICAg ICAgICAgICAgICAgICAgICAgICAgICANCiAgICAgICAgICAgICAgICAgICAgICAgICAgICAgICAgICAg ICAgICAgICAgICAgICAgICAgICAgICAgICAgICAgICAgICAgICAgICAgICAgICAgICAgICAgICAgICAg ICAgICANCiAgICAgICAgICAgICAgICAgICAgICAgIC AgICAgICAgICAgICAgICAgICAgICAgICAgICAgICAgICAgICAgICAgICAgICAgICAgICAgICAgICAgIC AgICAgICAgICAgICAgICANCiAgICAgICAgICAgICAgICAgICAgICAgICAgICAgICAgICAgICAgICAgIC AgICAgICAgICAgICAgICAgICAgICAgICAgICAgICAg ICAgICAgICAgICAgICAgICAgICAgICAgICANCiAgICAgICAgICAgICAgICAgICAgICAgICAgICAgICAg ICAgICAgICAgICAgICAgICAgICAgICAgICAgICAgICAgICAgICAgICAgICAgICAgICAgICAgICAgICAg ICAgICAgICANCiAgICAgICAgICAgICAgICAgICAgIC AgICAgICAgICAgICAgICAgICAgICAgICAgICAgICAgICAgICAgICAgICAgICAgICAgICAgICAgICAgIC AgICAgICAgICAgICAgICAgICANCiAgICAgICAgICAgICAgICAgICAgICAgICAgICAgICAgICAgICAgIC AgICAgICAgICAgICAgICAgICAgICAgICAgICAgICAg ICAgICAgICAgICAgICAgICAgICAgICAgICAgICANCiAgICAgICAgICAgICAgICAgICAgICAgICAgICAg ICAgICAgICAgICAgICAgICAgICAgICAgICAgICAgICAgICAgICAgICAgICAgICAgICAgICAgICAgICAg ICAgICAgICAgICANCjw/mJQvT0sytWFzqnC5R9nrNq 5FKw8HXM9zv2CtWDEtTJbuayKaHpsVTrLoOUTaGbiMXct7MJdnFQ9LdISiR8FbH6HbOTboQU5BAPAeRV IvqVZfIKJuRFEfWhP3ZCKmHHixKT7IxQXaNMzrZRHyEVTcPzTcMVPzXV4XQAWkR476jkZjGe5FJx9LJa MyQJ3slv4OKsZcFNEgDdbLGtd8MJtqXU5BfIPlB2Yh yNOay9bDZjZuJ5QCJPA1JEEbKw8BXEDxSeIjCIWqBFaxCQ1mXWGeVKLBeCnquwG5EJ2AMA3jdjCtUG4V JhPaVn5gPj2OHiBiH4IkY6YbJTQoUXRWINxxCA5ERJNqTDS6ZQBdRTQhCSHXEhOsZ85qTB5YG5Zpv92k WxR5HOWsPoTzDHswJA89oZwhpdUlhQPeiQtqTF8IIv 4+IErjydAtFktDIupmOKCLAaSeDlKNGqEtMAEfNEPuPTNeMgG4DdAqUb9LPWShGKDhXFVoMcNjCDJnPJ OyQMesVYRaILL0ApU8AOIrIZJpDC5BWjZfTEXwLZvhESMeIGJdAJVfir1IZPPxQWWyODC2RCWwBRFgGQ UmIDxlZFVoEGFqCdLmAVQmQFFyUR9AGaOwKXRkMRE3 TIStBQQfQXSbwi3OXTNjVNXfSeT6DCZvFYNyFSDdWSovYVCiTSJzLGI9AWGrBFQjAA0DBnJqSWFhKDY1 EXSfINWiYRZush4SHBCyUYUcUTAwXYQkGLWxQQXzJDehYCQuKIZ4LIunXGSfAVDwVT5RPxNsSBYiFGWu BMOuENSmJIHcco9NSWHpYOBiGjS1BkAdPUIcTBHpSY xmDYYnCQR3VCCoBDEaWZEeVH1YXnNqZCUkWDg0LQuqYYWsVSAvcx0XODNtHYQiQkE3RIUgKLNzAUCxRK pbEHAvNGC4MAu7PFOvOFIjCF7XXzVqXMVnNDQ6BkCvJYMrTYSbva8CYAGlEWJtFbX2GSBdJWHpUZMuZM dhWZEgAYZ4UTF3JFKaJMYaQV0CHnGfXKZxCEk6BWov OYGxDYCnya6EuYEvlZcmqb8FGAvNMv9VhShmXWOpXCobYv7jlMMjHFKuQQDTAs8OinAnCHHgAJYWSIge VDQcNYAtKNGrXtOxYWO6Nkc1SaQkPUV7TMenYYY9HiJaWXLqXfR7WPYwMiEvGkAdEtuiANMiRGVyMMbd YZQvQsc0PcM2FcJ+ZM6sNYb+Va1Eb6RqxyO1sdYoTRbmEGV2Cr7XWQQPL0IRKu== ID Date Data Source TOTAL IRON BINDING CAPACIT 11/17/2019 12:00:00 AM EST eCW1 ( [facility]) Name Value Range Interpretation Code Description Data Shelia rce(s) Supporting Document(s) 12.7 19.7-50.0 PERCENT SATURATION eCW1 ([facility]) 49 65-175 IRON (FE) eCW1 ([facility]) 386 250-450 TOTAL IRON BINDING CAPACI TY eCW1 ([facility]) Procedure Social History Code Duration Value Status Description Data Source(s ) Smoking 10/21/2020 12:00:00 AM EST Former Smoker completed Former Smoker eCW1 ([facility]) Smoking 10/21/2020 12:00:00 AM EST Former Smoker completed Former Smoker eCW1 ([facility]) Smoking 10/21/2020 12:00:00 AM EST Former Smoker completed Former Smoker eCW1 ([facility]) Smoking 04/19/2020 12:00:00 AM EDT Former Smoker completed Former Smoker eCW1 ([facility]) Smoking 04/19/2020 12:00:00 AM EDT Former Smoker completed Former Smoker eCW1 ([facility]) Smoking 04/19/2020 12:00:00 AM EDT Former Smoker completed Former Smoker eCW1 ([facility]) Vital Signs ID Date Data Source UNK Name Value Range Interpretation Code Description Data Source(s) Diastolic blood pressure 64 mm[Hg] 64 mm[Hg] eCW1 ([facility]) Systolic blood pressure 116 mm[Hg] 116 mm[Hg] e CW1 ([facility]) Body mass index (BMI) [Ratio] 30.12 kg/m2 30.12 kg/m2 W1 ([facility]) Body height 69 [in_i] 69 [in_i] W1 ([facility]) Body weight 204.0 [lb_av] 204.0 [lb_av] eCW1 ([facility]) Diastolic blood pressure 60 mm[Hg] 60 mm[Hg] eCW1 ([facility]) Systolic blood pressure 120 mm[Hg] 120 mm[Hg] e CW1 ([facility]) Body temperature 97.6 [degF] 97.6 [degF] eCW1 ( [facility]) Respiratory rate 20 /min 20 /min eCW1 ([facility]) Heart rate 62 /min 62 /min eCW1 ([facility]) Body mass index (BMI) [Ratio] 30.86 kg/m2 30.86 kg/m2 W1 ([facility]) Body height 69 [in_i] 69 [in_i] eCW1 ([facility]) Body weight 209 [lb_av] 209 [lb_av] eCW1 ([facility]) Diastolic blood pressure 62 mm[Hg] 62 mm[Hg] eCW1 ([facility]) Systolic blood pressure 120 mm[Hg] 120 mm[Hg] e CW1 ([facility]) Body temperature 97.6 [degF] 97.6 [degF] eCW1 ( [facility]) Respiratory rate 20 /min 20 /min eCW1 ([facility]) Heart rate 73 /min 73 /min eCW1 ([facility]) Body mass index (BMI) [Ratio] 30.24 kg/m2 30.24 kg/m2 W1 ([facility]) Body height 69 [in_us] 69 [in_us] eCW1 ([facility]) Body weight Measured 204.8 [lb_av] 204.8 [lb_av ] eCW1 ([facility]) Diastolic blood pressure 76 mm[Hg] 76 mm[Hg] eCW1 ([facility]) Systolic blood pressure 124 mm[Hg] 124 mm[Hg] e CW1 ([facility]) Body temperature 96.9 [degF] 96.9 [degF] eCW1 ( [facility]) Respiratory rate 20 /min 20 /min eCW1 ([facility]) Heart rate 57 /min 57 /min eCW1 ([facility]) Body mass index (BMI) [Ratio] 30.51 kg/m2 30.51 kg/m2 eCW1 ([facility]) Body height 69 [in_us] 69 [in_us] eCW1 ([facility]) Body weight Measured 206.6 [lb_av] 206.6 [lb_av ] eCW1 ([facility]) Diastolic blood pressure 68 mm[Hg] 68 mm[Hg] eCW1 ([facility]) Systolic blood pressure 120 mm[Hg] 120 mm[Hg] e CW1 ([facility]) Body temperature 97.3 [degF] 97.3 [degF] eCW1 ( [facility]) Respiratory rate 20 /min 20 /min eCW1 ([facility]) Heart rate 49 /min 49 /min eCW1 ([facility]) Body mass index (BMI) [Ratio] 30.54 kg/m2 30.54 kg/m2 eCW1 ([facility]) Body height 69 [in_us] 69 [in_us] eCW1 ([facility]) Body weight Measured 206.8 [lb_av] 206.8 [lb_av ] eCW1 ([facility]) Diastolic blood pressure 64 mm[Hg] 64 mm[Hg] eCW1 ([facility]) Systolic blood pressure 118 mm[Hg] 118 mm[Hg] e CW1 ([facility]) Body temperature 97.3 [degF] 97.3 [degF] eCW1 ( [facility]) Respiratory rate 18 /min 18 /min eCW1 ([facility]) Heart rate 89 /min 89 /min eCW1 ([facility]) Body mass index (BMI) [Ratio] 30.80 kg/m2 30.80 kg/m2 W1 ([facility]) Body height 69 [in_us] 69 [in_us] eCW1 ([facility]) Body weight Measured 208.6 [lb_av] 208.6 [lb_av ] eCW1 ([facility]) Diastolic blood pressure 60 mm[Hg] 60 mm[Hg] eCW1 ([facility]) Systolic blood pressure 120 mm[Hg] 120 mm[Hg] e CW1 ([facility]) Body temperature 97.4 [degF] 97.4 [degF] eCW1 ( [facility]) Respiratory rate 20 /min 20 /min eCW1 ([facility]) Heart rate 60 /min 60 /min eCW1 ([facility]) Body mass index (BMI) [Ratio] 31.57 kg/m2 31.57 kg/m2 eCW1 ([facility]) Body height 69 [in_us] 69 [in_us] eCW1 ([facility]) Body weight Measured 213.8 [lb_av] 213.8 [lb_av ] eCW1 ([facility]) Patient Treatment Plan of Care Planned Activity Planned Date Details Description Data Source (s) Rivaroxaban 15 MG 12/29/2019 12:00:00 AM EST eCW1 ([facility]) Spironolactone 25 MG Oral Tablet 11/18/2019 12:00:00 AM EST eCW1 ([facility]) Spironolactone 25 MG Oral Tablet 11/18/2019 12:00:00 AM EST eCW1 ([facility])
[2021-01-09 18:31] VITALS: BP 151/66
== END 2021-01-09 19:20 | disposition home or self-care (01) ==
LOC: M ED 16:29
DX: S01.511A Laceration without foreign body of lip, initial encounter (principal); S00.81XA Abrasion of other part of head, initial encounter; S00.83XA Contusion of other part of head, initial encounter; W18.39XA Other fall on same level, initial encounter; Y92.410 Unspecified street and highway as the place of occurrence of the external cause; E11.9 Type 2 diabetes mellitus without complications; I12.9 Hypertensive chronic kidney disease with stage 1 through stage 4 chronic kidney disease, or unspecified chronic kidney disease; N18.30 Chronic kidney disease, stage 3 unspecified; E78.9 Disorder of lipoprotein metabolism, unspecified; D50.9 Iron deficiency anemia, unspecified; I25.10 Atherosclerotic heart disease of native coronary artery without angina pectoris; Z95.1 Presence of aortocoronary bypass graft; Z79.899 Other long term (current) drug therapy; Z79.84 Long term (current) use of oral hypoglycemic drugs; F17.210 Nicotine dependence, cigarettes, uncomplicated

== ENCOUNTER → 2021-04-04 | Outpatient (REF) | payer MEDICARE ==
[2021-04-04 10:11] LABS: BASO % 0.1 % (0.0-1.0); EOS # 0.1 10^3/uL (0.0-0.5); EOS % 2.1 % (0.0-3.0); HEMATOCRIT 37.2 % (42.0-52.0); HEMOGLOBIN 11.7 g/dl (13.5-17.5); LYMPH # 0.8 10^3/uL (1.5-5.0); LYMPH % 12.6 % (24.0-44.0); MEAN CORPUSCULAR HEMOGLOBIN 29.6 pg (27.0-33.0); MEAN CORPUSCULAR HGB CONC 31.5 g/dl (32.0-36.5); MEAN CORPUSCULAR VOLUME 94.2 fl (80.0-96.0); MONO # 0.9 10^3/uL (0.0-0.8); MONO % 13.2 % (2.0-8.0); NEUTROPHILS # 4.8 10^3/uL (1.5-8.5); NEUTROPHILS % 71.6 % (36.0-66.0); PLATELET COUNT, AUTOMATED 171 10^3/uL (150-450); RED BLOOD COUNT 3.95 10^6/uL (4.30-6.10); WHITE BLOOD COUNT 6.7 10^3/uL (4.0-10.0)
[2021-04-04 10:35] LABS: ALBUMIN 3.6 GM/DL (3.2-5.2); BILIRUBIN,TOTAL 0.9 MG/DL (0.2-1.0); CALCIUM LEVEL 8.3 MG/DL (8.8-10.2); CREATININE FOR GFR 1.51 MG/DL (0.70-1.30); GLOMERULAR FILTRATION RATE 47.1 (>35); POTASSIUM SERUM 4.1 MEQ/L (3.5-5.1)
[2021-04-04 10:41] LABS: TOTAL 25(OH) VITAMIN D 127.5 NG/ML (30.0-100.0)
[2021-04-04 10:43] LABS: PTH INTACT 76.3 PG/ML (18.5-88.0)
[2021-04-04 11:39] LABS: HEMOGLOBIN A1c 7.2 %
== END ==
LOC: M PLALAB 07:48
PROVIDERS: ATTEND Family Medicine
DX: D50.9 Iron deficiency anemia, unspecified (principal); E11.8 Type 2 diabetes mellitus with unspecified complications; Z79.899 Other long term (current) drug therapy

== ENCOUNTER 2021-05-12 08:50 | Emergency (ER) | payer MEDICARE ==
[~2021-05-12] VITALS: Ht 172.7 cm; Wt 95.0 kg
[~2021-05-12 08:50] MED LIST changes: +ERGO500029 PO; -VITA50005 PO
[2021-05-12] MEDS ORDERED: SIMB1SUS OU (09:17)
[2021-05-12] MEDS ORDERED: XARE15TA PO (09:17)
--- NOTE | 2021-05-12 09:44 | REP ---
INDICATION: fall on xarelto. COMPARISON: Comparison head CT study January 09, 2021.. TECHNIQUE: Helical scanning is acquired. 5 mm axial images were reformatted. Coronal MPR images were generated. FINDINGS: Bone window settings demonstrate an intact bony calvarium. There is no evidence of skull fracture or incidental bony calvarial lesion. The visualized paranasal sinuses appear clear. No intraorbital abnormality is seen. On soft tissue window setting images; the lateral, third, and fourth ventricles are normal in size and position. Welch-white differentiation pattern is normal above and below the tentorium. There is generalized volume loss again noted. An old lacunar infarct is seen in the head of the caudate nucleus on the left unchanged from comparison study. There is no evidence of intracranial hemorrhage. No new infarction is seen. No extra-axial fluid collection is seen. No mass or midline shift is observed. 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 No acute intracranial abnormality.. <Electronically signed by Rickey Anaya > 05/12/21 [id number]
--- NOTE | 2021-05-12 09:48 | REP ---
INDICATION: fall on xarelto. COMPARISON: Comparison study January 09, 2021.. TECHNIQUE: Helical scanning is acquired and overlapping 2 mm high resolution axial images were generated and reviewed at bone and soft tissue window settings. Coronal and sagittal multiplanar re-formations images are generated. FINDINGS: There is no evidence of cervical spine element fracture. No skull base fracture is seen. Cervical vertebral body heights are preserved. Alignment is normal. Facet joints are normally aligned bilaterally at each cervical level on multiplanar re-formations images. There is no evidence of intraspinal or paraspinal hematoma. No extra vertebral abnormality is seen. Degenerative spondylosis changes are again noted. Degenerative disc spurring is seen anteriorly at C4-5, C5-6, C6-7, and C7-T1. The cyst these findings are unchanged. There is some posterior osteophytic ridging at C6-7 and to a lesser extent C5-6. Also unchanged. Osteoarthritic facet hypertrophy is noted in the mid cervical spine bilaterally. There is moderate vascular calcification again noted. IMPRESSION: Degenerative spondylosis changes. No traumatic abnormality. No change from January 09, 2021.. <Electronically signed by Rickey Anaya > 05/12/21 0927
[2021-05-12] MEDS ORDERED: AUGM875T28 PO (10:15)
[2021-05-12] MEDS ORDERED: AUGMENTIN 875 MG TAB PO ONE (10:15)
[2021-05-12 10:29] VITALS: BP 150/70
== END 2021-05-12 10:37 | disposition home or self-care (01) ==
LOC: M ED 08:50
DX: S01.311A Laceration without foreign body of right ear, initial encounter (principal); S00.03XA Contusion of scalp, initial encounter; W54.0XXA Bitten by dog, initial encounter; Y92.018 Other place in single-family (private) house as the place of occurrence of the external cause; I10 Essential (primary) hypertension; E11.9 Type 2 diabetes mellitus without complications; E78.5 Hyperlipidemia, unspecified; N40.0 Benign prostatic hyperplasia without lower urinary tract symptoms; I48.91 Unspecified atrial fibrillation; G47.33 Obstructive sleep apnea (adult) (pediatric); I25.10 Atherosclerotic heart disease of native coronary artery without angina pectoris; Z79.01 Long term (current) use of anticoagulants; Z79.899 Other long term (current) drug therapy

== ENCOUNTER → 2021-08-03 | Outpatient (CLI) | payer MEDICARE ==
[~2021-08-03] MED LIST changes: +AUGM875T28 PO
[2021-08-03 11:08] LABS: BASO % 0.3 % (0.0-1.0); EOS # 0.1 10^3/uL (0.0-0.5); HEMATOCRIT 32.8 % (42.0-52.0); HEMOGLOBIN 10.3 g/dl (13.5-17.5); LYMPH # 0.7 10^3/uL (1.5-5.0); LYMPH % 9.3 % (24.0-44.0); MEAN CORPUSCULAR HEMOGLOBIN 28.3 pg (27.0-33.0); MEAN CORPUSCULAR HGB CONC 31.4 g/dl (32.0-36.5); MEAN CORPUSCULAR VOLUME 90.1 fl (80.0-96.0); MONO # 0.9 10^3/uL (0.0-0.8); MONO % 13.4 % (2.0-8.0); NEUTROPHILS # 5.2 10^3/uL (1.5-8.5); NEUTROPHILS % 74.4 % (36.0-66.0); PLATELET COUNT, AUTOMATED 160 10^3/uL (150-450); RED BLOOD COUNT 3.64 10^6/uL (4.30-6.10)
[2021-08-03 11:40] LABS: ALBUMIN 3.2 GM/DL (3.2-5.2); CHOLESTEROL RISK RATIO 2.86 (<5); CREATININE FOR GFR 1.73 MG/DL (0.70-1.30); FREE T4 1.02 NG/DL (0.76-1.46); GLOMERULAR FILTRATION RATE 40.3 (>35); PHOSPHORUS LEVEL 3.5 MG/DL (2.5-4.9); POTASSIUM SERUM 4.1 MEQ/L (3.5-5.1); PTH INTACT 80.6 PG/ML (18.5-88.0); THYROID STIMULATING HORMONE 2.59 uIU/ML (0.358-3.740)
[2021-08-03 11:57] LABS: HEMOGLOBIN A1c 7.6 %
== END ==
LOC: M PLALAB 08:50
PROVIDERS: ATTEND Family Medicine
DX: E11.8 Type 2 diabetes mellitus with unspecified complications (principal); N18.30 Chronic kidney disease, stage 3 unspecified; D50.9 Iron deficiency anemia, unspecified; E78.2 Mixed hyperlipidemia

== ENCOUNTER → 2021-09-12 | Outpatient (CLI) | payer MEDICARE ==
[~2021-09-12] MED LIST changes: +SUCR1ORA PO
[2021-09-12 13:40] LABS: BASO % 0.4 % (0.0-1.0); EOS # 0.2 10^3/uL (0.0-0.5); EOS % 2.6 % (0.0-3.0); HEMATOCRIT 29.9 % (42.0-52.0); HEMOGLOBIN 8.9 g/dl (13.5-17.5); LYMPH # 0.6 10^3/uL (1.5-5.0); LYMPH % 8.3 % (24.0-44.0); MEAN CORPUSCULAR HEMOGLOBIN 26.3 pg (27.0-33.0); MEAN CORPUSCULAR HGB CONC 29.8 g/dl (32.0-36.5); MEAN CORPUSCULAR VOLUME 88.2 fl (80.0-96.0); MONO # 0.8 10^3/uL (0.0-0.8); MONO % 10.5 % (2.0-8.0); NEUTROPHILS # 5.7 10^3/uL (1.5-8.5); NEUTROPHILS % 77.8 % (36.0-66.0); PLATELET COUNT, AUTOMATED 223 10^3/uL (150-450); RED BLOOD COUNT 3.39 10^6/uL (4.30-6.10); WHITE BLOOD COUNT 7.3 10^3/uL (4.0-10.0)
[2021-09-12 16:08] LABS: ALBUMIN 3.2 GM/DL (3.2-5.2); CALCIUM LEVEL 9.3 MG/DL (8.8-10.2); CREATININE FOR GFR 1.73 MG/DL (0.70-1.30); GLOMERULAR FILTRATION RATE 40.3 (>35); POTASSIUM SERUM 3.9 MEQ/L (3.5-5.1); TOTAL PROTEIN 6.8 GM/DL (6.4-8.2)
== END ==
LOC: M PLALAB 09:13
PROVIDERS: ATTEND Physician Assistant Medical
DX: N18.30 Chronic kidney disease, stage 3 unspecified (principal); D50.9 Iron deficiency anemia, unspecified; I50.30 Unspecified diastolic (congestive) heart failure
CPT/HCPCS: 36415; 80053; 83540; 83880; 85025; G0463

== ENCOUNTER → 2021-09-13 | Outpatient (CLI) | payer MEDICARE ==
[~2021-09-13] MED LIST changes: -SUCR1ORA PO
== END ==
LOC: M LAB 10:41
PROVIDERS: ATTEND Physician Assistant Medical
DX: D64.9 Anemia, unspecified (principal); E11.9 Type 2 diabetes mellitus without complications

== ENCOUNTER 2021-09-14 09:05 | Outpatient (CLI) | payer MEDICARE ==
[~2021-09-14] VITALS: Ht 175.3 cm; Wt 90.9 kg
[2021-09-14] VITALS (8 sets, daily range): BP systolic 123–176; BP diastolic 65–82
[2021-09-14] MEDS ORDERED: ACETAMINOPHEN 325 MG TAB PO ONE (09:30)
[2021-09-14] MEDS ORDERED: diphenhydrAMINE 25MG CAP PO ONE (09:30)
[2021-09-14] MEDS ORDERED: FUROSEMIDE 40MG/4ML VIAL (J1940) IV ONE (09:30)
== END 2021-09-14 14:30 | disposition home or self-care (01) ==
LOC: M INFU 09:05
PROVIDERS: ATTEND Physician Assistant Medical
DX: D64.9 Anemia, unspecified (principal)
CPT/HCPCS: 36430; J1940; P9016

== ENCOUNTER → 2021-09-19 | Outpatient (CLI) | payer MEDICARE ==
[~2021-09-19] MED LIST changes: +SUCR1ORA PO
== END ==
LOC: M LABSMTC 10:13
PROVIDERS: ATTEND Anesthesiology
DX: Z01.812 Encounter for preprocedural laboratory examination (principal); Z20.822 Contact with and (suspected) exposure to COVID-19

== ENCOUNTER 2021-09-23 06:42 | Day surgery (SDC) | payer MEDICARE ==
[~2021-09-23] VITALS: Ht 175.3 cm; Wt 92.6 kg
[~2021-09-23 06:42] MED LIST changes: +NS 1,000 ML IV ONE
[2021-09-23] MEDS ORDERED: propofoL 500 MG/50 ML VIAL As Ordered ONE (07:13)
[2021-09-23] MEDS ORDERED: LIDOCAINE 2% 100MG/5ML SDV (FOR ANES.) As Ordered ONE (07:13)
--- NOTE | 2021-09-23 09:20 | ROOR ---
Patient Name: Romeo Diallo Procedure Date: 09/23/2021 8:29 AM Date of : 1935 Age: 86 Room: [facility] Gender: Male Note Status: Finalized Procedure: Upper GI endoscopy Indications: Iron deficiency anemia, Melena Providers: Calin Nguyen MD Referring MD: Yousif Monique MD Requesting Provider: Medicines: Monitored Anesthesia Care Complications: No immediate complications. Procedure: Pre-Anesthesia Assessment: - Prior to the procedure, a History and Physical was performed, and patient medications and allergies were reviewed. The patient is competent. The risks and benefits of the procedure and the sedation options and risks were discussed with the patient. All questions were answered and informed consent was obtained. Patient identification and proposed procedure were verified by the physician, the nurse and the laborer pipelines in the endoscopy suite. Mental Status Examination: alert and oriented. Airway Examination: normal oropharyngeal airway and neck mobility. Respiratory Examination: clear to auscultation. CV Examination: normal. Prophylactic Antibiotics: The patient does not require prophylactic antibiotics. Prior Anticoagulants: The patient has taken Eliquis (apixaban), last dose was 7 days prior to procedure. ASA Grade Assessment: III - A patient with severe systemic disease. After reviewing the risks and benefits, the patient was deemed in satisfactory condition to undergo the procedure. The anesthesia plan was to use monitored anesthesia care (MAC). Immediately prior to administration of medications, the patient was re-assessed for adequacy to receive sedatives. The heart rate, respiratory rate, oxygen saturations, blood pressure, adequacy of pulmonary ventilation, and response to care were monitored throughout the procedure. The physical status of the patient was re-assessed after the procedure. The Endoscope was introduced through the mouth, and advanced to the second part of duodenum. The patient tolerated the procedure well. Findings: The examined esophagus was normal. Estimated blood loss: none. There is no endoscopic evidence of bleeding, erythema, erythema or inflammatory changes suggestive of gastritis, hiatal hernia, mucosal abnormalities or ulceration in the entire examined stomach. The first portion of the duodenum and second portion of the duodenum were normal. Impression: - Normal esophagus. - Normal first portion of the duodenum and second portion of the duodenum. - No specimens collected. Recommendation: - Discharge patient to home (ambulatory). Procedure Code(s): --- Professional --- 91955, Esophagogastroduodenoscopy, flexible, transoral; diagnostic, including collection of specimen(s) by brushing or washing, when performed (separate procedure) Diagnosis Code(s): --- Professional --- D50.9, Iron deficiency anemia, unspecified K92.1, Melena (includes Hematochezia) CPT copyright 2019 [employer]. All rights reserved. The codes documented in this report are preliminary and upon it programmer analyst review may be revised to meet current compliance requirements. Calin Nguyen MD Calin Nguyen MD 09/23/2021 9:19:53 AM Electronically signed by Calin Nguyen MD Number of Addenda: 0 Note Initiated On: 09/23/2021 8:29 AM Estimated Blood Loss: Estimated blood loss: none.
--- NOTE | 2021-09-23 09:23 | ROOR ---
Patient Name: Romeo Diallo Procedure Date: 09/23/2021 8:30 AM Date of : 1935 Age: 86 Room: [facility] Gender: Male Note Status: Finalized Procedure: Colonoscopy Indications: Iron deficiency anemia Providers: Calin Nguyen MD Referring MD: Yousif Monique MD Requesting Provider: Medicines: Monitored Anesthesia Care Complications: No immediate complications. Procedure: Pre-Anesthesia Assessment: - Prior to the procedure, a History and Physical was performed, and patient medications and allergies were reviewed. The patient is competent. The risks and benefits of the procedure and the sedation options and risks were discussed with the patient. All questions were answered and informed consent was obtained. Patient identification and proposed procedure were verified by the physician, the nurse and the operating room surgical technologist in the endoscopy suite. Mental Status Examination: alert and oriented. Airway Examination: normal oropharyngeal airway and neck mobility. Respiratory Examination: clear to auscultation. CV Examination: normal. Prophylactic Antibiotics: The patient does not require prophylactic antibiotics. Prior Anticoagulants: The patient has taken Eliquis (apixaban), last dose was 7 days prior to procedure. ASA Grade Assessment: III - A patient with severe systemic disease. After reviewing the risks and benefits, the patient was deemed in satisfactory condition to undergo the procedure. The anesthesia plan was to use monitored anesthesia care (MAC). Immediately prior to administration of medications, the patient was re-assessed for adequacy to receive sedatives. The heart rate, respiratory rate, oxygen saturations, blood pressure, adequacy of pulmonary ventilation, and response to care were monitored throughout the procedure. The physical status of the patient was re-assessed after the procedure. The Colonoscope was introduced through the anus and advanced to the cecum, identified by appendiceal orifice and ileocecal valve. The colonoscopy was performed without difficulty. The patient tolerated the procedure well. The quality of the bowel preparation was adequate to identify polyps. Findings: The perianal examination was normal. There is no endoscopic evidence of bleeding, diverticula, inflammation or mass in the entire colon. A diminutive polyp was found in the ascending colon. The polyp was flat. The polyp was removed with a jumbo cold forceps. Resection and retrieval were complete. Estimated blood loss was minimal. Internal hemorrhoids were found during retroflexion. The hemorrhoids were moderate. Impression: - One diminutive polyp in the ascending colon, removed with a jumbo cold forceps. Resected and retrieved. - Internal hemorrhoids. Recommendation: - Repeat colonoscopy in 5 years for surveillance. - Resume Eliquis (apixaban) at prior dose tomorrow. Refer to primary physician for further adjustment of therapy. Procedure Code(s): --- Professional --- 46476, Colonoscopy, flexible; with biopsy, single or multiple Diagnosis Code(s): --- Professional --- K63.5, Polyp of colon K64.8, Other hemorrhoids D50.9, Iron deficiency anemia, unspecified CPT copyright 2019 [employer]. All rights reserved. The codes documented in this report are preliminary and upon java [email or web address] software engineer review may be revised to meet current compliance requirements. Calin Nguyen MD Calin Nguyen MD 09/23/2021 9:23:22 AM Electronically signed by Calin Nguyen MD Number of Addenda: 0 Note Initiated On: 09/23/2021 8:30 AM Estimated Blood Loss: Estimated blood loss was minimal.
[2021-09-23 09:46] VITALS: BP 142/82
== END 2021-09-23 09:45 | disposition home or self-care (01) ==
LOC: M OPP 06:42
PROVIDERS: ATTEND Surgery
DX: K63.5 Polyp of colon (principal); K64.8 Other hemorrhoids; D50.9 Iron deficiency anemia, unspecified; K92.1 Melena; I11.0 Hypertensive heart disease with heart failure; I50.9 Heart failure, unspecified; I48.91 Unspecified atrial fibrillation; K21.9 Gastro-esophageal reflux disease without esophagitis; E11.9 Type 2 diabetes mellitus without complications; F41.9 Anxiety disorder, unspecified; F32.A Depression, unspecified; G47.33 Obstructive sleep apnea (adult) (pediatric); Z79.899 Other long term (current) drug therapy; Z79.01 Long term (current) use of anticoagulants

== ENCOUNTER → 2021-10-10 | Outpatient (CLI) | payer MEDICARE ==
[~2021-10-10] MED LIST changes: -NS 1,000 ML IV ONE
[2021-10-10 13:26] LABS: BASO % 0.3 % (0.0-1.0); EOS # 0.1 10^3/uL (0.0-0.5); EOS % 1.8 % (0.0-3.0); HEMATOCRIT 37.4 % (42.0-52.0); HEMOGLOBIN 11.6 g/dl (13.5-17.5); LYMPH # 0.7 10^3/uL (1.5-5.0); LYMPH % 10.1 % (24.0-44.0); MEAN CORPUSCULAR HEMOGLOBIN 27.4 pg (27.0-33.0); MEAN CORPUSCULAR VOLUME 88.2 fl (80.0-96.0); MONO % 14.3 % (2.0-8.0); NEUTROPHILS # 5.1 10^3/uL (1.5-8.5); NEUTROPHILS % 72.9 % (36.0-66.0); PLATELET COUNT, AUTOMATED 178 10^3/uL (150-450); RED BLOOD COUNT 4.24 10^6/uL (4.30-6.10); WHITE BLOOD COUNT 7.1 10^3/uL (4.0-10.0)
[2021-10-10 13:53] LABS: ALBUMIN 3.4 GM/DL (3.2-5.2); BILIRUBIN,TOTAL 0.8 MG/DL (0.2-1.0); CALCIUM LEVEL 9.2 MG/DL (8.8-10.2); CREATININE FOR GFR 1.6 MG/DL (0.70-1.30); GLOMERULAR FILTRATION RATE 44.1 (>35); POTASSIUM SERUM 3.8 MEQ/L (3.5-5.1); TOTAL PROTEIN 7.1 GM/DL (6.4-8.2)
== END ==
LOC: M PLALAB 10:19
PROVIDERS: ATTEND Family Medicine
DX: D50.9 Iron deficiency anemia, unspecified (principal); I50.30 Unspecified diastolic (congestive) heart failure
CPT/HCPCS: 36415; 80053; 82728; 83880; 85025; G0463

== ENCOUNTER → 2022-01-05 | Outpatient (CLI) | payer MEDICARE ==
[2022-01-05 15:57] LABS: BASO % 0.3 % (0.0-1.0); EOS # 0.2 10^3/uL (0.0-0.5); HEMATOCRIT 33.9 % (42.0-52.0); HEMOGLOBIN 10.4 g/dl (13.5-17.5); LYMPH % 13.4 % (24.0-44.0); MEAN CORPUSCULAR HEMOGLOBIN 27.6 pg (27.0-33.0); MEAN CORPUSCULAR HGB CONC 30.7 g/dl (32.0-36.5); MEAN CORPUSCULAR VOLUME 89.9 fl (80.0-96.0); MONO % 13.2 % (2.0-8.0); NEUTROPHILS # 5.3 10^3/uL (1.5-8.5); NEUTROPHILS % 70.7 % (36.0-66.0); PLATELET COUNT, AUTOMATED 186 10^3/uL (150-450); RED BLOOD COUNT 3.77 10^6/uL (4.30-6.10); WHITE BLOOD COUNT 7.5 10^3/uL (4.0-10.0)
[2022-01-05 16:27] LABS: ALBUMIN 3.5 GM/DL (3.2-5.2); BILIRUBIN,TOTAL 0.8 MG/DL (0.2-1.0); CREATININE FOR GFR 1.65 MG/DL (0.70-1.30); GLOMERULAR FILTRATION RATE 42.5 (>35); MAGNESIUM LEVEL 2.3 MG/DL (1.8-2.4); POTASSIUM SERUM 3.9 MEQ/L (3.5-5.1); TOTAL PROTEIN 7.1 GM/DL (6.4-8.2)
[2022-01-05 20:24] LABS: HEMATOCRIT 33.9 % (42.0-52.0)
== END ==
LOC: M WUC 11:59
PROVIDERS: ATTEND Family Medicine
DX: Z12.5 Encounter for screening for malignant neoplasm of prostate (principal); I50.30 Unspecified diastolic (congestive) heart failure; E53.8 Deficiency of other specified B group vitamins; D50.9 Iron deficiency anemia, unspecified
CPT/HCPCS: 36415; 80053; 82607; 82728; 82747; 83735; 83880; 85025; G0103

== ENCOUNTER → 2022-01-25 | Outpatient (CLI) | payer MEDICARE ==
[2022-01-25 15:22] LABS: BASO % 0.4 % (0.0-1.0); EOS # 0.2 10^3/uL (0.0-0.5); EOS % 2.4 % (0.0-3.0); HEMATOCRIT 32.4 % (42.0-52.0); HEMOGLOBIN 10.1 g/dl (13.5-17.5); LYMPH % 11.9 % (24.0-44.0); MEAN CORPUSCULAR HEMOGLOBIN 27.4 pg (27.0-33.0); MEAN CORPUSCULAR HGB CONC 31.2 g/dl (32.0-36.5); MEAN CORPUSCULAR VOLUME 87.8 fl (80.0-96.0); MONO # 1.2 10^3/uL (0.0-0.8); MONO % 14.7 % (2.0-8.0); NEUTROPHILS # 5.6 10^3/uL (1.5-8.5); NEUTROPHILS % 70.1 % (36.0-66.0); PLATELET COUNT, AUTOMATED 203 10^3/uL (150-450); RED BLOOD COUNT 3.69 10^6/uL (4.30-6.10)
[2022-01-25 15:53] LABS: ALBUMIN 3.5 GM/DL (3.2-5.2); BILIRUBIN,TOTAL 0.9 MG/DL (0.2-1.0); CALCIUM LEVEL 9.1 MG/DL (8.8-10.2); CREATININE FOR GFR 1.8 MG/DL (0.70-1.30); GLOMERULAR FILTRATION RATE 38.5 (>35); POTASSIUM SERUM 3.8 MEQ/L (3.5-5.1); TOTAL PROTEIN 7.3 GM/DL (6.4-8.2)
== END ==
LOC: M PLALAB 14:04
PROVIDERS: ATTEND Physician Assistant Medical
DX: D50.9 Iron deficiency anemia, unspecified (principal); N18.30 Chronic kidney disease, stage 3 unspecified; I50.30 Unspecified diastolic (congestive) heart failure

== ENCOUNTER 2022-02-07 08:50 | Outpatient (CLI) | payer MEDICARE ==
[~2022-02-07] VITALS: Ht 175.3 cm; Wt 91.0 kg
[~2022-02-07 08:50] MED LIST changes: +ALBUTEROL SULFATE 2.5 MG/0.5 ML INH NEB SOLN INH PRN; +EPINEPHrine INJ 1 MG/ML 1ML AMP IM PRN; +diphenhydrAMINE 50MG/ML VIAL (J1200) IV PRN; +methylPREDNISolone 125MG 2ML VIAL IV PRN
[2022-02-07] MEDS ORDERED: FUROSEMIDE 40MG/4ML VIAL (J1940) IV ONE ×3 (09:30→13:30)
[2022-02-07] MEDS ORDERED: IRON SUCROSE 25 MG in NS 25 ML IV ONE (09:30)
[2022-02-07] MEDS ORDERED: IRON SUCROSE 225 MG in NS 213.75 ML IV ONE (09:30)
[2022-02-07] MEDS ORDERED: POTASSIUM CHLORIDE 10MEQ SR TABLET PO ONE (09:30)
[2022-02-07 09:36] VITALS: BP 146/66
[2022-02-07 10:30] VITALS: BP 141/61
[2022-02-07 12:00] VITALS: BP 143/63
[2022-02-07 13:27] VITALS: BP 149/67
== END 2022-02-07 14:05 | disposition home or self-care (01) ==
LOC: M INFU 08:50
PROVIDERS: ATTEND Physician Assistant Medical
DX: D50.9 Iron deficiency anemia, unspecified (principal); I50.30 Unspecified diastolic (congestive) heart failure; N18.30 Chronic kidney disease, stage 3 unspecified
CPT/HCPCS: 96365; 96375; 96376; J1756; J1940

== ENCOUNTER → 2022-03-23 | Outpatient (CLI) | payer MEDICARE ==
[~2022-03-23] MED LIST changes: -ALBUTEROL SULFATE 2.5 MG/0.5 ML INH NEB SOLN INH PRN; -EPINEPHrine INJ 1 MG/ML 1ML AMP IM PRN; -diphenhydrAMINE 50MG/ML VIAL (J1200) IV PRN; -methylPREDNISolone 125MG 2ML VIAL IV PRN
[2022-03-23 13:43] LABS: BASO % 0.4 % (0.0-1.0); EOS # 0.1 10^3/uL (0.0-0.5); EOS % 1.6 % (0.0-3.0); HEMOGLOBIN 10.6 g/dl (13.5-17.5); LYMPH # 0.8 10^3/uL (1.5-5.0); LYMPH % 11.2 % (24.0-44.0); MEAN CORPUSCULAR HEMOGLOBIN 27.2 pg (27.0-33.0); MEAN CORPUSCULAR HGB CONC 30.3 g/dl (32.0-36.5); MONO % 14.2 % (2.0-8.0); NEUTROPHILS # 5.3 10^3/uL (1.5-8.5); NEUTROPHILS % 72.2 % (36.0-66.0); PLATELET COUNT, AUTOMATED 206 10^3/uL (150-450); RED BLOOD COUNT 3.89 10^6/uL (4.30-6.10); WHITE BLOOD COUNT 7.3 10^3/uL (4.0-10.0)
[2022-03-23 15:02] LABS: ALBUMIN 3.6 GM/DL (3.2-5.2); CALCIUM LEVEL 9.7 MG/DL (8.8-10.2); CREATININE FOR GFR 1.59 MG/DL (0.70-1.30); GLOMERULAR FILTRATION RATE 44.4 (>35); MAGNESIUM LEVEL 2.5 MG/DL (1.8-2.4); PHOSPHORUS LEVEL 3.5 MG/DL (2.5-4.9); POTASSIUM SERUM 3.6 MEQ/L (3.5-5.1)
== END ==
LOC: M PLALAB 12:14
PROVIDERS: ATTEND Physician Assistant Medical
DX: D50.9 Iron deficiency anemia, unspecified (principal); I50.30 Unspecified diastolic (congestive) heart failure; N18.30 Chronic kidney disease, stage 3 unspecified

== ENCOUNTER 2022-04-11 12:26 | Outpatient (CLI) | payer MEDICARE ==
[~2022-04-11 12:26] MED LIST changes: +ALBUTEROL SULFATE 2.5 MG/0.5 ML INH NEB SOLN INH PRN; +EPINEPHrine INJ 1 MG/ML 1ML AMP IM PRN; +IRON SUCROSE 250 MG in NS 250 ML IV ONE; +NS 1,000 ML IV SCH; +diphenhydrAMINE 50MG/ML VIAL (J1200) IV PRN; +methylPREDNISolone 125MG 2ML VIAL IV PRN
[2022-04-11 12:53] VITALS: BP 173/72
[2022-04-11 14:00] VITALS: BP 156/77
== END 2022-04-11 14:00 | disposition home or self-care (01) ==
LOC: M INFU 12:26
PROVIDERS: ATTEND Family Medicine
DX: D50.9 Iron deficiency anemia, unspecified (principal)
CPT/HCPCS: 96365; J1756

== ENCOUNTER 2022-04-18 12:21 | Outpatient (CLI) | payer MEDICARE ==
[~2022-04-18 12:21] MED LIST changes: -IRON SUCROSE 250 MG in NS 250 ML IV ONE; -NS 1,000 ML IV SCH
[2022-04-18 12:40] VITALS: BP 167/71
[2022-04-18] MEDS ORDERED: NS 1,000 ML IV SCH (13:00)
[2022-04-18] MEDS ORDERED: IRON SUCROSE 250 MG in NS 250 ML IV ONE (13:00)
[2022-04-18 13:40] VITALS: BP 165/82
== END 2022-04-18 14:00 | disposition home or self-care (01) ==
LOC: M INFU 12:21
PROVIDERS: ATTEND Family Medicine
DX: D50.9 Iron deficiency anemia, unspecified (principal)
CPT/HCPCS: 96365; J1756

== ENCOUNTER → 2022-04-27 | Outpatient (CLI) | payer MEDICARE ==
[~2022-04-27] MED LIST changes: -ALBUTEROL SULFATE 2.5 MG/0.5 ML INH NEB SOLN INH PRN; -EPINEPHrine INJ 1 MG/ML 1ML AMP IM PRN; -diphenhydrAMINE 50MG/ML VIAL (J1200) IV PRN; -methylPREDNISolone 125MG 2ML VIAL IV PRN
[2022-04-27 16:14] LABS: BASO % 0.3 % (0.0-1.0); EOS # 0.1 10^3/uL (0.0-0.5); EOS % 1.5 % (0.0-3.0); HEMATOCRIT 36.8 % (42.0-52.0); HEMOGLOBIN 11.1 g/dl (13.5-17.5); LYMPH # 0.8 10^3/uL (1.5-5.0); LYMPH % 12.1 % (24.0-44.0); MEAN CORPUSCULAR HEMOGLOBIN 27.5 pg (27.0-33.0); MEAN CORPUSCULAR HGB CONC 30.2 g/dl (32.0-36.5); MEAN CORPUSCULAR VOLUME 91.1 fl (80.0-96.0); MONO # 0.8 10^3/uL (0.0-0.8); MONO % 11.4 % (2.0-8.0); NEUTROPHILS # 5.1 10^3/uL (1.5-8.5); PLATELET COUNT, AUTOMATED 188 10^3/uL (150-450); RED BLOOD COUNT 4.04 10^6/uL (4.30-6.10); WHITE BLOOD COUNT 6.9 10^3/uL (4.0-10.0)
[2022-04-27 16:19] LABS: ALBUMIN 3.5 GM/DL (3.2-5.2); BILIRUBIN,TOTAL 0.9 MG/DL (0.2-1.0); CALCIUM LEVEL 9.4 MG/DL (8.8-10.2); CREATININE FOR GFR 1.87 MG/DL (0.70-1.30); GLOMERULAR FILTRATION RATE 36.7 (>35); POTASSIUM SERUM 3.8 MEQ/L (3.5-5.1); TOTAL PROTEIN 7.1 GM/DL (6.4-8.2)
[2022-04-27 16:28] LABS: PTH INTACT 73.6 PG/ML (18.5-88.0)
[2022-04-27 16:33] LABS: HEMOGLOBIN A1c 7.2 %
== END ==
LOC: M WUC 11:14
PROVIDERS: ATTEND Family Medicine
DX: D50.9 Iron deficiency anemia, unspecified (principal); I50.30 Unspecified diastolic (congestive) heart failure; E55.9 Vitamin D deficiency, unspecified; E11.8 Type 2 diabetes mellitus with unspecified complications

== ENCOUNTER → 2022-05-30 | Outpatient (CLI) | payer MEDICARE ==
[~2022-05-30] MED LIST changes: -MOME0.1O TOP; +MOME0.1O3 TOP
[2022-05-30 11:15] LABS: BASO % 0.5 % (0.0-1.0); EOS # 0.1 10^3/uL (0.0-0.5); EOS % 1.8 % (0.0-3.0); HEMOGLOBIN 10.5 g/dl (13.5-17.5); LYMPH # 0.7 10^3/uL (1.5-5.0); LYMPH % 12.6 % (24.0-44.0); MEAN CORPUSCULAR HEMOGLOBIN 28.3 pg (27.0-33.0); MEAN CORPUSCULAR HGB CONC 30.9 g/dl (32.0-36.5); MEAN CORPUSCULAR VOLUME 91.6 fl (80.0-96.0); MONO # 0.7 10^3/uL (0.0-0.8); MONO % 11.7 % (2.0-8.0); NEUTROPHILS # 4.2 10^3/uL (1.5-8.5); NEUTROPHILS % 72.9 % (36.0-66.0); PLATELET COUNT, AUTOMATED 193 10^3/uL (150-450); RED BLOOD COUNT 3.71 10^6/uL (4.30-6.10); WHITE BLOOD COUNT 5.7 10^3/uL (4.0-10.0)
[2022-05-30 11:45] LABS: HEMOGLOBIN A1c 7.4 %
[2022-05-30 12:23] LABS: ALBUMIN 3.4 GM/DL (3.2-5.2); BILIRUBIN,TOTAL 0.8 MG/DL (0.2-1.0); CALCIUM LEVEL 8.7 MG/DL (8.8-10.2); CREATININE FOR GFR 2.01 MG/DL (0.70-1.30); GLOMERULAR FILTRATION RATE 33.8 (>35); TOTAL PROTEIN 6.8 GM/DL (6.4-8.2)
[2022-05-30 13:07] LABS: PTH INTACT 70.5 PG/ML (18.5-88.0)
== END ==
LOC: M PLALAB 08:26
PROVIDERS: ATTEND Family Medicine
DX: E78.2 Mixed hyperlipidemia (principal); I12.9 Hypertensive chronic kidney disease with stage 1 through stage 4 chronic kidney disease, or unspecified chronic kidney disease; D50.9 Iron deficiency anemia, unspecified; N18.30 Chronic kidney disease, stage 3 unspecified; I50.30 Unspecified diastolic (congestive) heart failure; Z79.899 Other long term (current) drug therapy

== ENCOUNTER 2022-06-13 10:10 | Outpatient (CLI) | payer MEDICARE ==
[~2022-06-13] VITALS: Ht 172.7 cm; Wt 90.0 kg
[2022-06-13 10:10] VITALS: BP 165/69
[~2022-06-13 10:10] MED LIST changes: +ALBUTEROL SULFATE 2.5 MG/0.5 ML INH NEB SOLN INH PRN; +EPINEPHrine INJ 1 MG/ML 1ML AMP IM PRN; +diphenhydrAMINE 50MG/ML VIAL (J1200) IV PRN; +methylPREDNISolone 125MG 2ML VIAL IV PRN
[2022-06-13] MEDS ORDERED: NS 1,000 ML IV SCH (10:30)
[2022-06-13] MEDS ORDERED: IRON SUCROSE 250 MG in NS 237.5 ML IV ONE (10:30)
[2022-06-13 12:13] VITALS: BP 158/68
== END 2022-06-13 12:15 | disposition home or self-care (01) ==
LOC: M INFU 10:10
PROVIDERS: ATTEND Family Medicine
DX: D50.9 Iron deficiency anemia, unspecified (principal)
CPT/HCPCS: 96365; 96366; J1756

== ENCOUNTER 2022-06-20 10:00 | Outpatient (CLI) | payer MEDICARE ==
[~2022-06-20 10:00] MED LIST changes: -ALBUTEROL SULFATE 2.5 MG/0.5 ML INH NEB SOLN INH PRN; -EPINEPHrine INJ 1 MG/ML 1ML AMP IM PRN; +NS 1,000 ML IV SCH; -diphenhydrAMINE 50MG/ML VIAL (J1200) IV PRN; -methylPREDNISolone 125MG 2ML VIAL IV PRN
[2022-06-20 10:05] VITALS: BP 149/68
[2022-06-20] MEDS ORDERED: EPINEPHrine INJ 1 MG/ML 1ML AMP IM PRN (10:30)
[2022-06-20] MEDS ORDERED: IRON SUCROSE 250 MG in NS 237.5 ML IV ONE (10:30)
[2022-06-20] MEDS ORDERED: methylPREDNISolone 125MG 2ML VIAL IV PRN (10:30)
[2022-06-20] MEDS ORDERED: diphenhydrAMINE 50MG/ML VIAL (J1200) IV PRN (10:30)
[2022-06-20] MEDS ORDERED: ALBUTEROL SULFATE 2.5 MG/0.5 ML INH NEB SOLN INH PRN (10:30)
[2022-06-20 11:40] VITALS: BP 149/67
== END 2022-06-20 11:40 | disposition home or self-care (01) ==
LOC: M INFU 10:00
PROVIDERS: ATTEND Family Medicine
DX: D50.9 Iron deficiency anemia, unspecified (principal)
CPT/HCPCS: 96365; J1756

== ENCOUNTER → 2022-07-05 | Outpatient (CLI) | payer MEDICARE ==
[~2022-07-05] MED LIST changes: -NS 1,000 ML IV SCH
[2022-07-05 10:56] LABS: BASO % 0.3 % (0.0-1.0); EOS # 0.1 10^3/uL (0.0-0.5); EOS % 2.3 % (0.0-3.0); HEMOGLOBIN 10.3 g/dl (13.5-17.5); LYMPH # 0.9 10^3/uL (1.5-5.0); LYMPH % 14.2 % (24.0-44.0); MEAN CORPUSCULAR HEMOGLOBIN 28.5 pg (27.0-33.0); MEAN CORPUSCULAR HGB CONC 30.3 g/dl (32.0-36.5); MEAN CORPUSCULAR VOLUME 94.2 fl (80.0-96.0); MONO # 0.7 10^3/uL (0.0-0.8); MONO % 12.2 % (2.0-8.0); NEUTROPHILS # 4.2 10^3/uL (1.5-8.5); NEUTROPHILS % 70.3 % (36.0-66.0); PLATELET COUNT, AUTOMATED 194 10^3/uL (150-450); RED BLOOD COUNT 3.61 10^6/uL (4.30-6.10)
[2022-07-05 11:23] LABS: HEMOGLOBIN A1c 7.2 %
[2022-07-05 11:31] LABS: ALBUMIN 3.6 GM/DL (3.2-5.2); BILIRUBIN,TOTAL 0.8 MG/DL (0.2-1.0); CALCIUM LEVEL 9.2 MG/DL (8.8-10.2); CREATININE FOR GFR 1.59 MG/DL (0.70-1.30); GLOMERULAR FILTRATION RATE 44.3 (>35); POTASSIUM SERUM 3.5 MEQ/L (3.5-5.1)
[2022-07-05 11:54] LABS: PTH INTACT 64.6 PG/ML (18.5-88.0)
== END ==
LOC: M PLALAB 07:54
PROVIDERS: ATTEND Family Medicine
DX: E78.2 Mixed hyperlipidemia (principal); D50.9 Iron deficiency anemia, unspecified; N18.30 Chronic kidney disease, stage 3 unspecified; I12.9 Hypertensive chronic kidney disease with stage 1 through stage 4 chronic kidney disease, or unspecified chronic kidney disease

== ENCOUNTER 2022-08-11 12:59 | Inpatient (IN) | payer MEDICARE ==
[~2022-08-11] VITALS: Ht 175.3 cm; Wt 89.2 kg
[2022-08-11] VITALS (7 sets, daily range): BP systolic 119–191; BP diastolic 54–81
[2022-08-11 13:49] LABS: BASO % 0.2 % (0.0-1.0); EOS # 0.2 10^3/uL (0.0-0.5); EOS % 2.5 % (0.0-3.0); HEMATOCRIT 26.7 % (42.0-52.0); HEMOGLOBIN 8.1 g/dl (13.5-17.5); LYMPH # 0.6 10^3/uL (1.5-5.0); LYMPH % 6.7 % (24.0-44.0); MEAN CORPUSCULAR HEMOGLOBIN 26.6 pg (27.0-33.0); MEAN CORPUSCULAR HGB CONC 30.3 g/dl (32.0-36.5); MEAN CORPUSCULAR VOLUME 87.8 fl (80.0-96.0); NEUTROPHILS # 6.6 10^3/uL (1.5-8.5); PLATELET COUNT, AUTOMATED 254 10^3/uL (150-450); RED BLOOD COUNT 3.04 10^6/uL (4.30-6.10); WHITE BLOOD COUNT 8.5 10^3/uL (4.0-10.0)
[2022-08-11 14:22] LABS: CALCIUM LEVEL 8.9 MG/DL (8.8-10.2); CREATININE FOR GFR 1.77 MG/DL (0.70-1.30); GLOMERULAR FILTRATION RATE 39.1 (>35); POTASSIUM SERUM 3.4 MEQ/L (3.5-5.1)
[2022-08-11 14:42] LABS: PERCENT SATURATION 7.2 % (19.7-50.0)
[2022-08-11] MEDS ORDERED: ACETAMINOPHEN TAB 650MG DOSE (2X325MG) PO PRN (16:30)
[2022-08-11] MEDS ORDERED: D3 H10002 PO (16:40)
[2022-08-11] MEDS ORDERED: FURO40TA2 PO (16:40)
[2022-08-11] MEDS ORDERED: PANT40TA29 PO (16:40)
[2022-08-11] MEDS ORDERED: HOME MED LIST COMPLETE! XX SCH (16:45)
[2022-08-11] MEDS ORDERED: POTASSIUM CHLORIDE 10% LIQ 20 MEQ/15 ML UDC PO ONE (17:05)
[2022-08-11] MEDS ORDERED: GLUCAGON INJ 1MG VIAL SC PRN (17:10)
[2022-08-11] MEDS ORDERED: DEXTROSE 50% 50 ML SYRINGE IV PRN (17:10)
[2022-08-11] MEDS ORDERED: GLUCOSE 4GM CHEW TABLET PO PRN (17:10)
[2022-08-11] MEDS ORDERED: FUROSEMIDE 40MG/4ML VIAL (J1940) IV ONE (17:10)
[2022-08-11 17:44] LABS: MAGNESIUM LEVEL 2.4 MG/DL (1.8-2.4)
[2022-08-11 17:45] LABS: INR 1.46; PROTHROMBIN TIME 18.2 SECONDS (12.7-14.5)
[2022-08-11 17:49] LABS: RSV AMPLIFICATION NEGATIVE (NEGATIVE)
[2022-08-11] MEDS: INSULIN LISPRO (NovoLOG) PER UNIT SC SCH (20:31)
[2022-08-11] MEDS: DOCUSATE SODIUM 100MG CAPSULE PO SCH (20:37)
[2022-08-11] MEDS: CARVedilol 6.25 MG TAB PO SCH (20:38)
[2022-08-11] MEDS ORDERED: LATANOPROST 0.005% OPHTH SOLN 2.5 ML OU SCH (21:00)
[2022-08-11] MEDS ORDERED: INSULIN LISPRO (NovoLOG) PER UNIT SC SCH (21:00)
[2022-08-11] MEDS ORDERED: POTASSIUM CHLORIDE 10MEQ SR TABLET PO ONE (21:00)
[2022-08-11] MEDS ORDERED: TAMSULOSIN 0.4 MG CAP PO SCH (21:00)
[2022-08-11] MEDS ORDERED: ATORVASTATIN 20 MG TAB PO SCH (21:00)
[2022-08-12] VITALS (7 sets, daily range): BP systolic 119–145; BP diastolic 55–73
[2022-08-12 03:24] LABS: BASO % 0.2 % (0.0-1.0); EOS # 0.1 10^3/uL (0.0-0.5); EOS % 1.3 % (0.0-3.0); HEMATOCRIT 31.2 % (42.0-52.0); HEMOGLOBIN 9.9 g/dl (13.5-17.5); LYMPH # 0.4 10^3/uL (1.5-5.0); LYMPH % 5.3 % (24.0-44.0); MEAN CORPUSCULAR HEMOGLOBIN 27.7 pg (27.0-33.0); MEAN CORPUSCULAR HGB CONC 31.7 g/dl (32.0-36.5); MEAN CORPUSCULAR VOLUME 87.4 fl (80.0-96.0); MONO % 12.4 % (2.0-8.0); NEUTROPHILS # 6.6 10^3/uL (1.5-8.5); NEUTROPHILS % 80.4 % (36.0-66.0); PLATELET COUNT, AUTOMATED 212 10^3/uL (150-450); RED BLOOD COUNT 3.57 10^6/uL (4.30-6.10); WHITE BLOOD COUNT 8.2 10^3/uL (4.0-10.0)
[2022-08-12 04:11] LABS: CALCIUM LEVEL 8.4 MG/DL (8.8-10.2); CREATININE FOR GFR 1.73 MG/DL (0.70-1.30); GLOMERULAR FILTRATION RATE 40.2 (>35); POTASSIUM SERUM 3.9 MEQ/L (3.5-5.1)
[2022-08-12 04:12] LABS: CHOLESTEROL RISK RATIO 2.171 (<5); MAGNESIUM LEVEL 2.2 MG/DL (1.8-2.4)
[2022-08-12 08:07] LABS: HEMATOCRIT 31.9 % (42.0-52.0); MEAN CORPUSCULAR HEMOGLOBIN 27.7 pg (27.0-33.0); MEAN CORPUSCULAR HGB CONC 31.3 g/dl (32.0-36.5); MEAN CORPUSCULAR VOLUME 88.4 fl (80.0-96.0); PLATELET COUNT, AUTOMATED 223 10^3/uL (150-450); RED BLOOD COUNT 3.61 10^6/uL (4.30-6.10); WHITE BLOOD COUNT 9.2 10^3/uL (4.0-10.0)
[2022-08-12] MEDS ORDERED: FUROSEMIDE 40MG/4ML VIAL (J1940) IV SCH (09:00)
[2022-08-12] MEDS ORDERED: FUROSEMIDE 80 MG TAB PO SCH (09:00)
[2022-08-12] MEDS ORDERED: PANTOPRAZOLE 40MG TAB (PROTONIX) PO SCH (09:00)
[2022-08-12] MEDS: CARVedilol 6.25 MG TAB PO SCH (09:26)
[2022-08-12] MEDS: DOCUSATE SODIUM 100MG CAPSULE PO SCH (09:27)
[2022-08-12] MEDS: CYANOCOBALAMIN 500 MCG TAB PO SCH ×2 (09:27→09:31)
[2022-08-12] MEDS: INSULIN LISPRO (NovoLOG) PER UNIT SC SCH ×2 (09:30→13:30)
[2022-08-12 12:34] LABS: HEMOGLOBIN 9.9 g/dl (13.5-17.5)
[2022-08-12 15:53] LABS: HEMATOCRIT 32.3 % (42.0-52.0)
[2022-08-12] MEDS ORDERED: FUROSEMIDE 40 MG TAB PO SCH (21:00)
[2022-08-13] MEDS ORDERED: POTA-151 PO (13:50)
== END 2022-08-12 17:29 | disposition home or self-care (01) | DRG 812 ==
LOC: M ED 12:59 → M ED INP 16:12 → M PCU 19:23
PROVIDERS: ADMIT Internal Medicine; ATTEND Internal Medicine
PROC: 30233N1 Transfusion of Nonautologous Red Blood Cells into Peripheral Vein, Percutaneous Approach (ICD-10-PCS; principal; 2022-08-11)
DX: D50.9 Iron deficiency anemia, unspecified (principal); I13.0 Hypertensive heart and chronic kidney disease with heart failure and stage 1 through stage 4 chronic kidney disease, or unspecified chronic kidney disease; I50.32 Chronic diastolic (congestive) heart failure; I48.20 Chronic atrial fibrillation, unspecified; I25.10 Atherosclerotic heart disease of native coronary artery without angina pectoris; E78.5 Hyperlipidemia, unspecified; N18.32 Chronic kidney disease, stage 3b; E87.6 Hypokalemia; E11.42 Type 2 diabetes mellitus with diabetic polyneuropathy; E11.22 Type 2 diabetes mellitus with diabetic chronic kidney disease; Z66 Do not resuscitate; E53.8 Deficiency of other specified B group vitamins; N40.0 Benign prostatic hyperplasia without lower urinary tract symptoms; G47.33 Obstructive sleep apnea (adult) (pediatric); K64.2 Third degree hemorrhoids; K59.09 Other constipation; F41.9 Anxiety disorder, unspecified; Z98.41 Cataract extraction status, right eye; Z98.42 Cataract extraction status, left eye; Z86.010 Personal history of colon polyps; Z87.891 Personal history of nicotine dependence; Z79.84 Long term (current) use of oral hypoglycemic drugs; Z79.01 Long term (current) use of anticoagulants; Z79.899 Other long term (current) drug therapy; Z95.5 Presence of coronary angioplasty implant and graft

== ENCOUNTER 2022-08-28 09:25 | Outpatient (CLI) | payer MEDICARE ==
[~2022-08-28] VITALS: Ht 175.3 cm; Wt 89.2 kg
[~2022-08-28 09:25] MED LIST changes: +ACETAMINOPHEN TAB 650MG DOSE (2X325MG) PO ONE; +ALBUTEROL SULFATE 2.5 MG/0.5 ML INH NEB SOLN INH PRN; +D3 H10002 PO; +EPINEPHrine INJ 1 MG/ML 1ML AMP IM PRN; +NS 1,000 ML IV ONE; +POTA-151 PO; +diphenhydrAMINE 50MG/ML VIAL (J1200) IV PRN; +methylPREDNISolone 125MG 2ML VIAL IV PRN
[2022-08-28 09:30] VITALS: BP 147/67
[2022-08-28] MEDS ORDERED: NS IV ONE (09:30)
[2022-08-28] MEDS ORDERED: IRON SUCROSE 500 MG in NS 250 ML OVER 4 HRS IV ONE (09:30)
[2022-08-28] MEDS ORDERED: IRON SUCROSE IV ONE (09:30)
[2022-08-28 11:30] VITALS: BP 155/90
[2022-08-28 12:30] VITALS: BP 142/88
[2022-08-28 13:30] VITALS: BP 140/63
[2022-08-28 14:55] VITALS: BP 132/72
== END 2022-08-28 15:05 | disposition home or self-care (01) ==
LOC: M INFU 09:25
PROVIDERS: ATTEND Family Medicine
DX: D50.9 Iron deficiency anemia, unspecified (principal)
CPT/HCPCS: 96365; 96366; J1756

== ENCOUNTER 2022-09-04 07:30 | Outpatient (CLI) | payer MEDICARE ==
[~2022-09-04] VITALS: Ht 175.3 cm; Wt 88.6 kg
[2022-09-04 07:30] VITALS: BP 157/68
[~2022-09-04 07:30] MED LIST changes: -ACETAMINOPHEN TAB 650MG DOSE (2X325MG) PO ONE; +IRON SUCROSE 500 MG in NS 250 ML OVER 4 HRS IV ONE; -NS 1,000 ML IV ONE
[2022-09-04] MEDS ORDERED: NS 1,000 ML IV ONE (07:35)
[2022-09-04 08:30] VITALS: BP 133/62
[2022-09-04 09:30] VITALS: BP 151/67
[2022-09-04 10:30] VITALS: BP 146/71
[2022-09-04 11:30] VITALS: BP 145/66
[2022-09-04 12:15] VITALS: BP 152/70
== END 2022-09-04 12:15 | disposition home or self-care (01) ==
LOC: M INFU 07:30
PROVIDERS: ATTEND Family Medicine
DX: D50.9 Iron deficiency anemia, unspecified (principal)
CPT/HCPCS: 96365; 96366; J1756

== ENCOUNTER → 2022-09-07 | Outpatient (CLI) | payer MEDICARE ==
[~2022-09-07] MED LIST changes: -ALBUTEROL SULFATE 2.5 MG/0.5 ML INH NEB SOLN INH PRN; -EPINEPHrine INJ 1 MG/ML 1ML AMP IM PRN; -IRON SUCROSE 500 MG in NS 250 ML OVER 4 HRS IV ONE; -diphenhydrAMINE 50MG/ML VIAL (J1200) IV PRN; -methylPREDNISolone 125MG 2ML VIAL IV PRN
[2022-09-07 10:29] LABS: BASO % 0.3 % (0.0-1.0); EOS # 0.2 10^3/uL (0.0-0.5); EOS % 3.1 % (0.0-3.0); HEMOGLOBIN 10.6 g/dl (13.5-17.5); LYMPH # 0.9 10^3/uL (1.5-5.0); MEAN CORPUSCULAR HEMOGLOBIN 27.7 pg (27.0-33.0); MEAN CORPUSCULAR HGB CONC 30.3 g/dl (32.0-36.5); MEAN CORPUSCULAR VOLUME 91.4 fl (80.0-96.0); MONO # 0.9 10^3/uL (0.0-0.8); MONO % 12.7 % (2.0-8.0); NEUTROPHILS # 5.1 10^3/uL (1.5-8.5); NEUTROPHILS % 71.3 % (36.0-66.0); PLATELET COUNT, AUTOMATED 186 10^3/uL (150-450); RED BLOOD COUNT 3.83 10^6/uL (4.30-6.10); WHITE BLOOD COUNT 7.2 10^3/uL (4.0-10.0)
[2022-09-07 11:58] LABS: ALBUMIN 3.5 GM/DL (3.2-5.2); CALCIUM LEVEL 9.3 MG/DL (8.8-10.2); CREATININE FOR GFR 1.58 MG/DL (0.70-1.30); GLOMERULAR FILTRATION RATE 44.6 (>35); PHOSPHORUS LEVEL 3.2 MG/DL (2.5-4.9); POTASSIUM SERUM 3.9 MEQ/L (3.5-5.1)
== END ==
LOC: M WUC 08:13
PROVIDERS: ATTEND Family Medicine
DX: D50.9 Iron deficiency anemia, unspecified (principal)

== ENCOUNTER → 2022-09-27 | Outpatient (CLI) | payer MEDICARE ==
[2022-09-27 10:54] LABS: BASO % 0.3 % (0.0-1.0); EOS # 0.1 10^3/uL (0.0-0.5); EOS % 2.4 % (0.0-3.0); HEMATOCRIT 38.3 % (42.0-52.0); HEMOGLOBIN 11.5 g/dl (13.5-17.5); LYMPH # 0.7 10^3/uL (1.5-5.0); LYMPH % 11.1 % (24.0-44.0); MEAN CORPUSCULAR HEMOGLOBIN 27.8 pg (27.0-33.0); MEAN CORPUSCULAR VOLUME 92.5 fl (80.0-96.0); MONO # 0.7 10^3/uL (0.0-0.8); MONO % 11.2 % (2.0-8.0); NEUTROPHILS # 4.4 10^3/uL (1.5-8.5); NEUTROPHILS % 74.5 % (36.0-66.0); PLATELET COUNT, AUTOMATED 187 10^3/uL (150-450); RED BLOOD COUNT 4.14 10^6/uL (4.30-6.10); WHITE BLOOD COUNT 5.9 10^3/uL (4.0-10.0)
[2022-09-27 11:47] LABS: ALBUMIN 3.4 GM/DL (3.2-5.2); CALCIUM LEVEL 9.3 MG/DL (8.8-10.2); CREATININE FOR GFR 1.4 MG/DL (0.70-1.30); GLOMERULAR FILTRATION RATE 51.3 (>35); PHOSPHORUS LEVEL 3.6 MG/DL (2.5-4.9); POTASSIUM SERUM 3.8 MEQ/L (3.5-5.1)
[2022-09-28 20:07] LABS: H PYLORI SERUM QUANT IgG ABY 0.25 (0.00-0.79); TISSUE TRANSGLUTAMINASE IgA <2 U/mL (0-3)
== END ==
LOC: M PLALAB 08:26
PROVIDERS: ATTEND Family Medicine
DX: D50.9 Iron deficiency anemia, unspecified (principal)

== ENCOUNTER → 2022-12-12 | Outpatient (CLI) | payer MEDICARE ==
[2022-12-12 11:08] LABS: BASO % 0.5 % (0.0-1.0); EOS # 0.1 10^3/uL (0.0-0.5); EOS % 0.8 % (0.0-3.0); HEMATOCRIT 40.4 % (42.0-52.0); HEMOGLOBIN 12.8 g/dl (13.5-17.5); LYMPH # 0.6 10^3/uL (1.5-5.0); LYMPH % 8.4 % (24.0-44.0); MEAN CORPUSCULAR HEMOGLOBIN 29.2 pg (27.0-33.0); MEAN CORPUSCULAR HGB CONC 31.7 g/dl (32.0-36.5); MONO # 1.5 10^3/uL (0.0-0.8); MONO % 23.1 % (2.0-8.0); NEUTROPHILS # 4.5 10^3/uL (1.5-8.5); NEUTROPHILS % 66.9 % (36.0-66.0); PLATELET COUNT, AUTOMATED 149 10^3/uL (150-450); RED BLOOD COUNT 4.39 10^6/uL (4.30-6.10); WHITE BLOOD COUNT 6.7 10^3/uL (4.0-10.0)
[2022-12-12 11:20] LABS: ALBUMIN 3.8 G/DL (3.2-5.2); CALCIUM LEVEL 8.9 MG/DL (8.3-10.6); CREATININE FOR GFR 1.65 MG/DL (0.70-1.30); GLOMERULAR FILTRATION RATE 42.4 (>35); POTASSIUM SERUM 3.5 MMOL/L (3.5-5.1)
[2022-12-12 11:22] LABS: FERRITIN 125.7 NG/ML (10.5-307.3)
== END ==
LOC: M PLALAB 07:52
PROVIDERS: ATTEND Family Medicine
DX: D50.9 Iron deficiency anemia, unspecified (principal)

== ENCOUNTER → 2023-02-21 | Outpatient (CLI) | payer MEDICARE ==
[2023-02-21 12:00] LABS: BASO % 0.4 % (0.0-1.0); EOS # 0.2 10^3/uL (0.0-0.5); EOS % 2.4 % (0.0-3.0); HEMATOCRIT 37.6 % (42.0-52.0); HEMOGLOBIN 11.8 g/dl (13.5-17.5); LYMPH # 0.6 10^3/uL (1.5-5.0); LYMPH % 8.1 % (24.0-44.0); MEAN CORPUSCULAR HEMOGLOBIN 29.1 pg (27.0-33.0); MEAN CORPUSCULAR HGB CONC 31.4 g/dl (32.0-36.5); MEAN CORPUSCULAR VOLUME 92.8 fl (80.0-96.0); MONO # 0.9 10^3/uL (0.0-0.8); MONO % 11.9 % (2.0-8.0); NEUTROPHILS % 76.6 % (36.0-66.0); PLATELET COUNT, AUTOMATED 216 10^3/uL (150-450); RED BLOOD COUNT 4.05 10^6/uL (4.30-6.10); WHITE BLOOD COUNT 7.8 10^3/uL (4.0-10.0)
[2023-02-21 12:05] LABS: ALBUMIN 3.4 G/DL (3.2-5.2); CALCIUM LEVEL 8.6 MG/DL (8.3-10.6); CREATININE FOR GFR 1.43 MG/DL (0.70-1.30); FERRITIN 142.3 NG/ML (10.5-307.3); MAGNESIUM LEVEL 1.9 MG/DL (1.8-2.4); PHOSPHORUS LEVEL 3.6 MG/DL (2.4-5.1); POTASSIUM SERUM 3.7 MMOL/L (3.5-5.1); TOTAL 25(OH) VITAMIN D 60.4 NG/ML (20.0-100.0)
[2023-02-21 18:17] LABS: PTH INTACT 67.1 PG/ML (18.5-88.0)
== END ==
LOC: M PLALAB 07:49
PROVIDERS: ATTEND Family Medicine
DX: I50.30 Unspecified diastolic (congestive) heart failure (principal); D50.9 Iron deficiency anemia, unspecified; K76.0 Fatty (change of) liver, not elsewhere classified; Z12.5 Encounter for screening for malignant neoplasm of prostate; Z79.899 Other long term (current) drug therapy
CPT/HCPCS: 36415; 80069; 82172; 82306; 82728; 83010; 83735; 83880; 83883; 83970; 85025; G0103

== ENCOUNTER → 2023-04-23 | Outpatient (CLI) | payer MEDICARE ==
[2023-04-23 15:53] LABS: BASO % 0.5 % (0.0-1.0); EOS # 0.1 10^3/uL (0.0-0.5); EOS % 1.5 % (0.0-3.0); HEMATOCRIT 35.2 % (42.0-52.0); HEMOGLOBIN 11.2 g/dl (13.5-17.5); LYMPH # 0.7 10^3/uL (1.5-5.0); LYMPH % 10.5 % (24.0-44.0); MEAN CORPUSCULAR HEMOGLOBIN 29.3 pg (27.0-33.0); MEAN CORPUSCULAR HGB CONC 31.8 g/dl (32.0-36.5); MEAN CORPUSCULAR VOLUME 92.1 fl (80.0-96.0); MONO # 0.7 10^3/uL (0.0-0.8); MONO % 11.3 % (2.0-8.0); NEUTROPHILS # 4.9 10^3/uL (1.5-8.5); NEUTROPHILS % 75.7 % (36.0-66.0); PLATELET COUNT, AUTOMATED 170 10^3/uL (150-450); RED BLOOD COUNT 3.82 10^6/uL (4.30-6.10); WHITE BLOOD COUNT 6.5 10^3/uL (4.0-10.0)
[2023-04-23 16:13] LABS: FERRITIN 80.3 NG/ML (10.5-307.3)
[2023-04-23 16:15] LABS: ALBUMIN 3.6 G/DL (3.2-5.2); BILIRUBIN,TOTAL 1.1 MG/DL (0.3-1.2); CALCIUM LEVEL 8.3 MG/DL (8.3-10.6); CREATININE FOR GFR 1.68 MG/DL (0.70-1.30); GLOMERULAR FILTRATION RATE 41.4 (>35); POTASSIUM SERUM 3.5 MMOL/L (3.5-5.1); TOTAL PROTEIN 6.6 G/DL (5.7-8.2)
== END ==
LOC: M PLALAB 13:02
PROVIDERS: ATTEND Family Medicine
DX: D50.9 Iron deficiency anemia, unspecified (principal); I50.30 Unspecified diastolic (congestive) heart failure

== ENCOUNTER → 2023-06-05 | Outpatient (CLI) | payer MEDICARE ==
[2023-06-05 15:52] LABS: BASO % 0.3 % (0.0-1.0); EOS # 0.2 10^3/uL (0.0-0.5); EOS % 1.9 % (0.0-3.0); HEMATOCRIT 37.5 % (42.0-52.0); HEMOGLOBIN 11.6 g/dl (13.5-17.5); LYMPH # 1.1 10^3/uL (1.5-5.0); LYMPH % 14.2 % (24.0-44.0); MEAN CORPUSCULAR HEMOGLOBIN 28.6 pg (27.0-33.0); MEAN CORPUSCULAR HGB CONC 30.9 g/dl (32.0-36.5); MEAN CORPUSCULAR VOLUME 92.4 fl (80.0-96.0); MONO # 0.9 10^3/uL (0.0-0.8); MONO % 12.1 % (2.0-8.0); NEUTROPHILS # 5.5 10^3/uL (1.5-8.5); PLATELET COUNT, AUTOMATED 165 10^3/uL (150-450); RED BLOOD COUNT 4.06 10^6/uL (4.30-6.10); WHITE BLOOD COUNT 7.7 10^3/uL (4.0-10.0)
[2023-06-05 16:02] LABS: INR 1.58; PROTHROMBIN TIME 19.2 SECONDS (12.5-14.5)
[2023-06-05 16:03] LABS: PARTIAL THROMBOPLASTIN TIME 40.1 SECONDS (24.8-34.2)
[2023-06-05 16:25] LABS: FERRITIN 73.9 NG/ML (10.5-307.3)
[2023-06-08 12:09] LABS: COAGULATION FACTOR X ACTIVITY 73 % (76-183); H PYLORI SERUM QUANT IgG ABY 0.29 (0.00-0.79); TISSUE TRANSGLUTAMINASE IgA <2 U/mL (0-3)
== END ==
LOC: M PLALAB 13:05
PROVIDERS: ATTEND Family Medicine
DX: K76.0 Fatty (change of) liver, not elsewhere classified (principal); D50.9 Iron deficiency anemia, unspecified; E11.8 Type 2 diabetes mellitus with unspecified complications

== ENCOUNTER 2023-06-15 08:07 | Outpatient (CLI) | payer MEDICARE ==
[~2023-06-15] VITALS: Ht 175.3 cm; Wt 86.8 kg
[2023-06-15 08:05] VITALS: BP 145/75; O2SAT 97
[2023-06-15] MEDS ORDERED: NS 1,000 ML IV SCH (08:40)
[2023-06-15] MEDS ORDERED: IRON SUCROSE 500 MG in NS 250 ML OVER 4 HRS IV ONE (08:45)
[2023-06-15 10:15] VITALS: BP 118/62; O2SAT 99
[2023-06-15 11:15] VITALS: BP 132/60; O2SAT 98
[2023-06-15 13:30] VITALS: BP 158/67; O2SAT 98
== END 2023-06-15 13:30 ==
LOC: M INFU 08:07
PROVIDERS: ATTEND Family Medicine
DX: D50.9 Iron deficiency anemia, unspecified (principal)
CPT/HCPCS: 96365; 96366; J1756

== ENCOUNTER → 2023-06-19 | Outpatient (REF) | payer MEDICARE | LOC: M SFHCPLAZ 14:12 | PROVIDERS: ATTEND Family Medicine | DX: Z53.9 Procedure and treatment not carried out, unspecified reason (principal) ==

== ENCOUNTER → 2023-09-12 | Outpatient (CLI) | payer MEDICARE ==
[2023-09-12 15:43] LABS: BASO % 0.1 % (0.0-1.0); EOS # 0.1 10^3/uL (0.0-0.5); EOS % 1.9 % (0.0-3.0); HEMATOCRIT 37.3 % (42.0-52.0); HEMOGLOBIN 11.9 g/dl (13.5-17.5); LYMPH # 0.8 10^3/uL (1.5-5.0); MEAN CORPUSCULAR HEMOGLOBIN 29.6 pg (27.0-33.0); MEAN CORPUSCULAR HGB CONC 31.9 g/dl (32.0-36.5); MEAN CORPUSCULAR VOLUME 92.8 fl (80.0-96.0); MONO # 0.9 10^3/uL (0.0-0.8); MONO % 13.3 % (2.0-8.0); NEUTROPHILS # 4.9 10^3/uL (1.5-8.5); NEUTROPHILS % 72.3 % (36.0-66.0); PLATELET COUNT, AUTOMATED 155 10^3/uL (150-450); RED BLOOD COUNT 4.02 10^6/uL (4.30-6.10); WHITE BLOOD COUNT 6.8 10^3/uL (4.0-10.0)
[2023-09-12 16:05] LABS: HEMOGLOBIN A1c 7.2 % (4.0-6.0)
[2023-09-12 16:26] LABS: ALBUMIN 3.8 G/DL (3.2-5.2); BILIRUBIN,TOTAL 1.2 MG/DL (0.3-1.2); CREATININE FOR GFR 1.57 MG/DL (0.70-1.30); GLOMERULAR FILTRATION RATE 44.8 (>35); POTASSIUM SERUM 3.7 MMOL/L (3.5-5.1); TOTAL PROTEIN 7.2 G/DL (5.7-8.2)
== END ==
LOC: M PLALAB 13:13
PROVIDERS: ATTEND Family Medicine
DX: D50.9 Iron deficiency anemia, unspecified (principal); I50.30 Unspecified diastolic (congestive) heart failure; E78.2 Mixed hyperlipidemia; I11.0 Hypertensive heart disease with heart failure; Z79.899 Other long term (current) drug therapy

== ENCOUNTER → 2023-09-13 | Outpatient (REF) | payer MEDICARE | LOC: M SFHCPLAZ 18:01 | PROVIDERS: ATTEND Family Medicine | DX: I50.32 Chronic diastolic (congestive) heart failure (principal) ==

== ENCOUNTER 2023-10-15 15:58 | Inpatient (IN) | payer MEDICARE ==
[~2023-10-15] VITALS: Ht 172.7 cm; Wt 86.9 kg
[2023-10-15] VITALS (7 sets, daily range): BP systolic 119–177; BP diastolic 57–86; TEMP 96.9–97.9; O2SAT 95–99
[~2023-10-15 15:58] MED LIST changes: -BRIN8DRO OU; -POTA10CA60 PO
[2023-10-15] MEDS ORDERED: PANTOPRAZOLE 40MG VIAL IV ONE (17:20)
[2023-10-15] MEDS ORDERED: MED REC IN PROGRESS XX SCH (17:45)
[2023-10-15] MEDS ORDERED: DEXTROSE 50% 50ML SYRINGE IV PRN (18:00)
[2023-10-15] MEDS ORDERED: **NOTE PATIENT COMMENT** MISC XX SCH (18:00)
[2023-10-15] MEDS ORDERED: NS 0.45% 1,000 ML IV SCH (18:00)
[2023-10-15] MEDS ORDERED: GLUCOSE 4GM CHEW TABLET PO PRN (18:00)
[2023-10-15] MEDS ORDERED: GLUCAGON INJ 1MG VIAL SC PRN (18:00)
[2023-10-15] MEDS ORDERED: POTA10CA60 PO (18:01)
[2023-10-15 18:04] LABS: INR 1.25; PROTHROMBIN TIME 15.3 SECONDS (12.5-14.5)
[2023-10-15 18:05] LABS: PARTIAL THROMBOPLASTIN TIME 31.9 SECONDS (24.8-34.2)
[2023-10-15] MEDS ORDERED: BRIN8DRO OU (18:05)
[2023-10-15] MEDS ORDERED: HOME MED LIST COMPLETE! XX SCH (18:10)
[2023-10-15 18:44] LABS: RSV AMPLIFICATION NEGATIVE (NEGATIVE)
[2023-10-15 19:09] LABS: HEMATOCRIT 24.9 % (42.0-52.0); HEMOGLOBIN 7.9 g/dl (13.5-17.5); MEAN CORPUSCULAR HGB CONC 31.7 g/dl (32.0-36.5); MEAN CORPUSCULAR VOLUME 91.5 fl (80.0-96.0); PLATELET COUNT, AUTOMATED 241 10^3/uL (150-450); RED BLOOD COUNT 2.72 10^6/uL (4.30-6.10); WHITE BLOOD COUNT 9.9 10^3/uL (4.0-10.0)
[2023-10-15 19:40] LABS: PERCENT SATURATION 14.2 % (19.7-50.0)
[2023-10-15 19:44] LABS: FERRITIN 94.5 NG/ML (10.5-307.3)
[2023-10-15] MEDS ORDERED: SIMBRINZA OPTHALMIC OU SCH (21:00)
[2023-10-15] MEDS: INSULIN LISPRO (NovoLOG) PER UNIT SC SCH (21:08)
[2023-10-15] MEDS: LATANOPROST 0.005% OPHTH SOLN 2.5 ML OU SCH (21:48)
[2023-10-16] VITALS (10 sets, daily range): BP systolic 127–159; BP diastolic 63–103; TEMP 97–98; O2SAT 94–98
[2023-10-16] MEDS: PANTOPRAZOLE 40MG VIAL IV SCH ×2 (03:45→16:06)
[2023-10-16 04:22] LABS: HEMATOCRIT 30.1 % (42.0-52.0); HEMOGLOBIN 9.6 g/dl (13.5-17.5); MEAN CORPUSCULAR HEMOGLOBIN 28.4 pg (27.0-33.0); MEAN CORPUSCULAR HGB CONC 31.9 g/dl (32.0-36.5); MEAN CORPUSCULAR VOLUME 89.1 fl (80.0-96.0); PLATELET COUNT, AUTOMATED 229 10^3/uL (150-450); RED BLOOD COUNT 3.38 10^6/uL (4.30-6.10)
[2023-10-16 04:44] LABS: CALCIUM LEVEL 8.8 MG/DL (8.3-10.6); CREATININE FOR GFR 1.49 MG/DL (0.70-1.30); GLOMERULAR FILTRATION RATE 47.6 (>35); POTASSIUM SERUM 3.7 MMOL/L (3.5-5.1)
[2023-10-16] MEDS: INSULIN LISPRO (NovoLOG) PER UNIT SC SCH ×5 (04:54→23:31)
[2023-10-16] MEDS ORDERED: IRON SUCROSE 500 MG in NS 250 ML IV ONE (10:00)
[2023-10-16] MEDS: SERTRALINE HCL 50 MG TAB PO SCH (10:28)
[2023-10-16 12:20] LABS: HEMATOCRIT 30.6 % (42.0-52.0); HEMOGLOBIN 9.8 g/dl (13.5-17.5); MEAN CORPUSCULAR HEMOGLOBIN 28.7 pg (27.0-33.0); MEAN CORPUSCULAR VOLUME 89.5 fl (80.0-96.0); PLATELET COUNT, AUTOMATED 220 10^3/uL (150-450); RED BLOOD COUNT 3.42 10^6/uL (4.30-6.10)
[2023-10-16] MEDS ORDERED: propofoL 200 MG/20 ML VIAL As Ordered ONE (14:40)
[2023-10-16] MEDS ORDERED: LIDOCAINE 2% 100MG/5ML SDV (FOR ANES.) As Ordered ONE (14:40)
[2023-10-16] MEDS ORDERED: fentaNYL 100 MCG/2 ML INJECTION As Ordered ONE (14:40)
[2023-10-16] MEDS ORDERED: MOM 30ML SUSPENSION UDC PO ONE (14:50)
[2023-10-16] MEDS ORDERED: POLYETHYLENE GLYCOL (MIRALAX) 238GM BOTTLE PO ONE (18:00)
[2023-10-16 18:10] LABS: HEMATOCRIT 30.8 % (42.0-52.0); HEMOGLOBIN 9.9 g/dl (13.5-17.5); MEAN CORPUSCULAR HGB CONC 32.1 g/dl (32.0-36.5); MEAN CORPUSCULAR VOLUME 90.3 fl (80.0-96.0); PLATELET COUNT, AUTOMATED 234 10^3/uL (150-450); RED BLOOD COUNT 3.41 10^6/uL (4.30-6.10); WHITE BLOOD COUNT 10.2 10^3/uL (4.0-10.0)
[2023-10-16] MEDS: LATANOPROST 0.005% OPHTH SOLN 2.5 ML OU SCH (20:12)
[2023-10-17 00:38] LABS: HEMATOCRIT 29.5 % (42.0-52.0); HEMOGLOBIN 9.5 g/dl (13.5-17.5); MEAN CORPUSCULAR HEMOGLOBIN 28.8 pg (27.0-33.0); MEAN CORPUSCULAR HGB CONC 32.2 g/dl (32.0-36.5); MEAN CORPUSCULAR VOLUME 89.4 fl (80.0-96.0); PLATELET COUNT, AUTOMATED 230 10^3/uL (150-450)
[2023-10-17 04:00] VITALS: BP 149/65; TEMP 98.4; O2SAT 97
[2023-10-17 04:27] LABS: HEMATOCRIT 28.8 % (42.0-52.0); HEMOGLOBIN 9.3 g/dl (13.5-17.5); MEAN CORPUSCULAR HEMOGLOBIN 28.6 pg (27.0-33.0); MEAN CORPUSCULAR HGB CONC 32.3 g/dl (32.0-36.5); MEAN CORPUSCULAR VOLUME 88.6 fl (80.0-96.0); PLATELET COUNT, AUTOMATED 229 10^3/uL (150-450); RED BLOOD COUNT 3.25 10^6/uL (4.30-6.10); WHITE BLOOD COUNT 11.5 10^3/uL (4.0-10.0)
[2023-10-17 04:51] LABS: CALCIUM LEVEL 8.1 MG/DL (8.3-10.6); CREATININE FOR GFR 1.32 MG/DL (0.70-1.30); GLOMERULAR FILTRATION RATE 54.7 (>35); POTASSIUM SERUM 3.9 MMOL/L (3.5-5.1)
[2023-10-17] MEDS: PANTOPRAZOLE 40MG VIAL IV SCH (05:24)
[2023-10-17] MEDS: INSULIN LISPRO (NovoLOG) PER UNIT SC SCH ×3 (05:24→18:00)
[2023-10-17] MEDS ORDERED: POLYETHYLENE GLYCOL (MIRALAX) 238GM BOTTLE PO ONE (07:00)
[2023-10-17 08:00] VITALS: BP 164/70; TEMP 98.6; O2SAT 94
[2023-10-17] MEDS: SERTRALINE HCL 50 MG TAB PO SCH (08:24)
[2023-10-17 12:00] VITALS: BP 163/63; TEMP 97.8; O2SAT 97
[2023-10-17] MEDS ORDERED: propofoL 200 MG/20 ML VIAL As Ordered ONE ×2 (14:18→15:09)
[2023-10-17] MEDS ORDERED: LIDOCAINE 2% 100MG/5ML SDV (FOR ANES.) As Ordered ONE (14:18)
[2023-10-17] MEDS ORDERED: GLYCOPYRROLATE INJ 0.2 MG/ML 2 ML VIAL As Ordered ONE (15:33)
[2023-10-17 16:00] VITALS: BP 158/69; O2SAT 96
[2023-10-17] MEDS ORDERED: ATORVASTATIN 20 MG TAB PO SCH (21:00)
[2023-10-17] MEDS ORDERED: TAMSULOSIN 0.4 MG CAP PO SCH (21:00)
[2023-10-18] MEDS ORDERED: PANTOPRAZOLE 40MG TAB (PROTONIX) PO SCH (09:00)
== END 2023-10-17 18:37 | disposition home or self-care (01) | DRG 812 ==
LOC: M ED 15:58 → M ED INP 17:56 → M ICU 19:33
PROVIDERS: ADMIT Family Medicine; ATTEND Family Medicine
PROC: 30233N1 Transfusion of Nonautologous Red Blood Cells into Peripheral Vein, Percutaneous Approach (ICD-10-PCS; 2023-10-15)
PROC: 0DB78ZX Excision of Stomach, Pylorus, Via Natural or Artificial Opening Endoscopic, Diagnostic (ICD-10-PCS; principal; 2023-10-16 15:00)
PROC: 0DBL8ZX Excision of Transverse Colon, Via Natural or Artificial Opening Endoscopic, Diagnostic (ICD-10-PCS; 2023-10-17)
PROC: 0W3P8ZZ Control Bleeding in Gastrointestinal Tract, Via Natural or Artificial Opening Endoscopic (ICD-10-PCS; 2023-10-17)
DX: D62 Acute posthemorrhagic anemia (principal); K92.1 Melena; I13.0 Hypertensive heart and chronic kidney disease with heart failure and stage 1 through stage 4 chronic kidney disease, or unspecified chronic kidney disease; I50.32 Chronic diastolic (congestive) heart failure; I48.92 Unspecified atrial flutter; I35.0 Nonrheumatic aortic (valve) stenosis; I25.10 Atherosclerotic heart disease of native coronary artery without angina pectoris; D12.3 Benign neoplasm of transverse colon; E11.42 Type 2 diabetes mellitus with diabetic polyneuropathy; K57.30 Diverticulosis of large intestine without perforation or abscess without bleeding; N18.30 Chronic kidney disease, stage 3 unspecified; N32.81 Overactive bladder; D50.9 Iron deficiency anemia, unspecified; K29.70 Gastritis, unspecified, without bleeding; Z66 Do not resuscitate; D51.0 Vitamin B12 deficiency anemia due to intrinsic factor deficiency; E78.5 Hyperlipidemia, unspecified; K64.8 Other hemorrhoids; N40.1 Benign prostatic hyperplasia with lower urinary tract symptoms; E66.9 Obesity, unspecified; K59.09 Other constipation; G47.33 Obstructive sleep apnea (adult) (pediatric); Z98.41 Cataract extraction status, right eye; Z98.42 Cataract extraction status, left eye; Z87.891 Personal history of nicotine dependence; Z68.29 Body mass index [BMI] 29.0-29.9, adult

== ENCOUNTER → 2023-10-15 | Outpatient (CLI) | payer MEDICARE ==
[~2023-10-15] MED LIST changes: +BRIN8DRO OU; +POTA10CA60 PO
[2023-10-15 13:21] LABS: BASO % 0.3 % (0.0-1.0); EOS # 0.2 10^3/uL (0.0-0.5); HEMATOCRIT 26.6 % (42.0-52.0); HEMOGLOBIN 8.2 g/dl (13.5-17.5); LYMPH # 0.6 10^3/uL (1.5-5.0); LYMPH % 5.8 % (24.0-44.0); MEAN CORPUSCULAR HEMOGLOBIN 28.5 pg (27.0-33.0); MEAN CORPUSCULAR HGB CONC 30.8 g/dl (32.0-36.5); MEAN CORPUSCULAR VOLUME 92.4 fl (80.0-96.0); MONO # 1.1 10^3/uL (0.0-0.8); MONO % 10.1 % (2.0-8.0); NEUTROPHILS # 8.4 10^3/uL (1.5-8.5); NEUTROPHILS % 80.5 % (36.0-66.0); PLATELET COUNT, AUTOMATED 265 10^3/uL (150-450); RED BLOOD COUNT 2.88 10^6/uL (4.30-6.10); WHITE BLOOD COUNT 10.4 10^3/uL (4.0-10.0)
[2023-10-15 14:00] LABS: BILIRUBIN,TOTAL 0.7 MG/DL (0.3-1.2); CALCIUM LEVEL 9.3 MG/DL (8.3-10.6); CHOLESTEROL RISK RATIO 3.74 (<5); CREATININE FOR GFR 1.56 MG/DL (0.70-1.30); FERRITIN 96.9 NG/ML (10.5-307.3); GLOMERULAR FILTRATION RATE 45.1 (>35); HDL CHOLESTEROL 28.3 MG/DL (>40); LDL CHOLESTEROL 55.5 MG/DL (<100); MAGNESIUM LEVEL 2.3 MG/DL (1.8-2.4); NON-HDL-C 77.7 MG/DL; POTASSIUM SERUM 3.9 MMOL/L (3.5-5.1); TOTAL PROTEIN 6.2 G/DL (5.7-8.2)
== END ==
LOC: M PLALAB 10:11
PROVIDERS: ATTEND Family Medicine
DX: I50.32 Chronic diastolic (congestive) heart failure (principal); D50.9 Iron deficiency anemia, unspecified

== ENCOUNTER → 2023-12-06 | Outpatient (CLI) | payer MEDICARE ==
[~2023-12-06] MED LIST changes: +BRIN8DRO OU; +POTA10CA60 PO
[2023-12-06 15:29] LABS: BASO % 0.3 % (0.0-1.0); EOS # 0.1 10^3/uL (0.0-0.5); EOS % 1.2 % (0.0-3.0); HEMOGLOBIN 9.6 g/dl (13.5-17.5); LYMPH # 0.4 10^3/uL (1.5-5.0); LYMPH % 5.7 % (24.0-44.0); MEAN CORPUSCULAR VOLUME 93.7 fl (80.0-96.0); MONO # 0.8 10^3/uL (0.0-0.8); MONO % 10.4 % (2.0-8.0); NEUTROPHILS # 6.4 10^3/uL (1.5-8.5); NEUTROPHILS % 81.8 % (36.0-66.0); PLATELET COUNT, AUTOMATED 202 10^3/uL (150-450); RED BLOOD COUNT 3.31 10^6/uL (4.30-6.10); WHITE BLOOD COUNT 7.8 10^3/uL (4.0-10.0)
[2023-12-06 15:37] LABS: ALBUMIN 2.6 G/DL (3.2-5.2); BILIRUBIN,TOTAL 0.7 MG/DL (0.3-1.2); CALCIUM LEVEL 8.5 MG/DL (8.3-10.6); CREATININE FOR GFR 1.24 MG/DL (0.70-1.30); GLOMERULAR FILTRATION RATE 58.8 (>35); MAGNESIUM LEVEL 1.6 MG/DL (1.8-2.4); POTASSIUM SERUM 4.1 MMOL/L (3.5-5.1)
[2023-12-06 15:40] LABS: FERRITIN 58.7 NG/ML (10.5-307.3)
== END ==
LOC: M PLALAB 13:02
PROVIDERS: ATTEND Family Medicine
DX: I50.32 Chronic diastolic (congestive) heart failure (principal); I25.10 Atherosclerotic heart disease of native coronary artery without angina pectoris

== ENCOUNTER → 2023-12-11 | Outpatient (REF) | payer MEDICARE ==
[2023-12-11 18:33] LABS: BASO % 0.1 % (0.0-1.0); EOS # 0.1 10^3/uL (0.0-0.5); EOS % 1.7 % (0.0-3.0); HEMATOCRIT 31.7 % (42.0-52.0); HEMOGLOBIN 9.8 g/dl (13.5-17.5); LYMPH # 0.7 10^3/uL (1.5-5.0); LYMPH % 8.9 % (24.0-44.0); MEAN CORPUSCULAR HEMOGLOBIN 28.6 pg (27.0-33.0); MEAN CORPUSCULAR HGB CONC 30.9 g/dl (32.0-36.5); MEAN CORPUSCULAR VOLUME 92.4 fl (80.0-96.0); MONO # 0.8 10^3/uL (0.0-0.8); MONO % 10.4 % (2.0-8.0); NEUTROPHILS # 6.2 10^3/uL (1.5-8.5); NEUTROPHILS % 78.4 % (36.0-66.0); PLATELET COUNT, AUTOMATED 244 10^3/uL (150-450); RED BLOOD COUNT 3.43 10^6/uL (4.30-6.10); WHITE BLOOD COUNT 7.9 10^3/uL (4.0-10.0)
[2023-12-11 19:02] LABS: ALBUMIN 2.9 G/DL (3.2-5.2); ALKALINE PHOSPHATASE 148 U/L (46-116); ALT/SGPT 23 U/L (7.0-40); AST/SGOT 23 U/L (<34); BILIRUBIN,TOTAL 0.7 MG/DL (0.3-1.2); BLOOD UREA NITROGEN 22 MG/DL (9-23); CALCIUM LEVEL 9.1 MG/DL (8.3-10.6); CARBON DIOXIDE LEVEL 30 MMOL/L (20-31); CHLORIDE LEVEL 103 MMOL/L (98-107); CREATININE FOR GFR 1.18 MG/DL (0.70-1.30); GLOMERULAR FILTRATION RATE > 60.0 (>35); GLUCOSE, FASTING 160 MG/DL (74-106); MAGNESIUM LEVEL 1.9 MG/DL (1.8-2.4); POTASSIUM SERUM 3.9 MMOL/L (3.5-5.1); SODIUM LEVEL 139 MMOL/L (136-145); TOTAL PROTEIN 6.8 G/DL (5.7-8.2)
[2023-12-11 19:04] LABS: FERRITIN 71.5 NG/ML (10.5-307.3)
== END ==
LOC: M SFHCPLAZ 16:18
PROVIDERS: ATTEND Family Medicine
DX: I50.32 Chronic diastolic (congestive) heart failure (principal); D50.9 Iron deficiency anemia, unspecified

== ENCOUNTER 2023-12-17 09:19 | Outpatient (CLI) | payer MEDICARE ==
[~2023-12-17] VITALS: Ht 172.7 cm; Wt 81.8 kg
[~2023-12-17 09:19] MED LIST changes: +ALBUTEROL SULFATE 2.5MG/0.5ML INH NEB SOLN INH PRN; +EPINEPHrine INJ 1 MG/ML 1ML AMP IM PRN; +NS 1,000 ML IV SCH; +diphenhydrAMINE 50MG/ML VIAL IV PRN; +methylPREDNISolone 125MG 2ML VIAL IV PRN
[2023-12-17 10:00] VITALS: BP 160/73; O2SAT 98
[2023-12-17] MEDS ORDERED: IRON SUCROSE 500 MG in NS 250 ML OVER 4 HRS IV ONE (10:00)
[2023-12-17 11:30] VITALS: BP 141/81; O2SAT 100
[2023-12-17 12:30] VITALS: BP 158/68; O2SAT 97
[2023-12-17 13:30] VITALS: BP 146/69; O2SAT 97
[2023-12-17 14:50] VITALS: BP 166/68; O2SAT 98
== END 2023-12-17 14:53 | disposition home or self-care (01) ==
LOC: M INFU 09:19
PROVIDERS: ATTEND Family Medicine
DX: D50.9 Iron deficiency anemia, unspecified (principal)
CPT/HCPCS: 96365; 96366; J1756

== ENCOUNTER 2024-01-07 08:47 | Emergency (ER) | payer MEDICARE ==
[~2024-01-07] VITALS: Ht 172.7 cm; Wt 82.9 kg
[~2024-01-07 08:47] MED LIST changes: -ALBUTEROL SULFATE 2.5MG/0.5ML INH NEB SOLN INH PRN; -EPINEPHrine INJ 1 MG/ML 1ML AMP IM PRN; -NS 1,000 ML IV SCH; -diphenhydrAMINE 50MG/ML VIAL IV PRN; -methylPREDNISolone 125MG 2ML VIAL IV PRN
[2024-01-07 08:48] VITALS: TEMP 97.2
[2024-01-07] MEDS ORDERED: XARE15TA (09:00)
[2024-01-07] MEDS ORDERED: ISOVUE-370 76% 100ML VIAL As Ordered ONE (09:53)
[2024-01-07 12:01] VITALS: BP 152/67; O2SAT 95
== END 2024-01-07 12:08 | disposition home or self-care (01) ==
LOC: M ED 08:47
DX: S22.31XA Fracture of one rib, right side, initial encounter for closed fracture (principal); V47.5XXA Car driver injured in collision with fixed or stationary object in traffic accident, initial encounter; Y92.410 Unspecified street and highway as the place of occurrence of the external cause; Y93.89 Activity, other specified; Y99.8 Other external cause status; I10 Essential (primary) hypertension; G47.33 Obstructive sleep apnea (adult) (pediatric); K21.9 Gastro-esophageal reflux disease without esophagitis; E11.9 Type 2 diabetes mellitus without complications; F41.9 Anxiety disorder, unspecified; Z79.899 Other long term (current) drug therapy; Z79.01 Long term (current) use of anticoagulants; Z95.1 Presence of aortocoronary bypass graft
CPT/HCPCS: 36415; 70450; 71260; 74177; 80047; 94010; 99284; Q9967

== ENCOUNTER → 2024-01-11 | Outpatient (CLI) | payer MEDICARE ==
[~2024-01-11] MED LIST changes: +XARE15TA
[2024-01-11 15:33] LABS: BASO % 0.4 % (0.0-1.0); EOS # 0.1 10^3/uL (0.0-0.5); EOS % 0.7 % (0.0-3.0); HEMATOCRIT 38.3 % (42.0-52.0); HEMOGLOBIN 11.9 g/dl (13.5-17.5); LYMPH # 0.8 10^3/uL (1.5-5.0); LYMPH % 10.9 % (24.0-44.0); MEAN CORPUSCULAR HEMOGLOBIN 28.1 pg (27.0-33.0); MEAN CORPUSCULAR HGB CONC 31.1 g/dl (32.0-36.5); MEAN CORPUSCULAR VOLUME 90.3 fl (80.0-96.0); MONO # 1.1 10^3/uL (0.0-0.8); MONO % 14.7 % (2.0-8.0); NEUTROPHILS # 5.6 10^3/uL (1.5-8.5); PLATELET COUNT, AUTOMATED 156 10^3/uL (150-450); RED BLOOD COUNT 4.24 10^6/uL (4.30-6.10); WHITE BLOOD COUNT 7.6 10^3/uL (4.0-10.0)
[2024-01-11 15:56] LABS: ALBUMIN 3.3 G/DL (3.2-5.2); CALCIUM LEVEL 8.9 MG/DL (8.3-10.6); CREATININE FOR GFR 1.32 MG/DL (0.70-1.30); GLOMERULAR FILTRATION RATE 54.7 (>35); POTASSIUM SERUM 3.6 MMOL/L (3.5-5.1); TOTAL PROTEIN 6.9 G/DL (5.7-8.2)
[2024-01-11 15:57] LABS: FERRITIN 153.7 NG/ML (10.5-307.3)
== END ==
LOC: M PLALAB 14:34
PROVIDERS: ATTEND Family Medicine
DX: I50.32 Chronic diastolic (congestive) heart failure (principal); D50.9 Iron deficiency anemia, unspecified

== ENCOUNTER → 2024-02-13 | Outpatient (CLI) | payer MEDICARE ==
[2024-02-13 15:51] LABS: BASO % 0.3 % (0.0-1.0); EOS # 0.1 10^3/uL (0.0-0.5); EOS % 1.6 % (0.0-3.0); HEMATOCRIT 35.1 % (42.0-52.0); HEMOGLOBIN 11.1 g/dl (13.5-17.5); LYMPH # 0.8 10^3/uL (1.5-5.0); MEAN CORPUSCULAR HGB CONC 31.6 g/dl (32.0-36.5); MEAN CORPUSCULAR VOLUME 88.6 fl (80.0-96.0); MONO # 0.9 10^3/uL (0.0-0.8); MONO % 12.7 % (2.0-8.0); NEUTROPHILS # 4.9 10^3/uL (1.5-8.5); PLATELET COUNT, AUTOMATED 152 10^3/uL (150-450); RED BLOOD COUNT 3.96 10^6/uL (4.30-6.10); WHITE BLOOD COUNT 6.7 10^3/uL (4.0-10.0)
[2024-02-13 16:08] LABS: ALBUMIN 3.4 G/DL (3.2-5.2); BILIRUBIN,TOTAL 0.7 MG/DL (0.3-1.2); CREATININE FOR GFR 1.64 MG/DL (0.70-1.30); GLOMERULAR FILTRATION RATE 42.6 (>35); MAGNESIUM LEVEL 2.1 MG/DL (1.8-2.4); POTASSIUM SERUM 3.8 MMOL/L (3.5-5.1); TOTAL PROTEIN 6.8 G/DL (5.7-8.2)
== END ==
LOC: M PLALAB 13:57
PROVIDERS: ATTEND Physician Assistant
DX: R60.0 Localized edema (principal); I11.0 Hypertensive heart disease with heart failure; N18.31 Chronic kidney disease, stage 3a; I50.32 Chronic diastolic (congestive) heart failure; R06.09 Other forms of dyspnea; D50.9 Iron deficiency anemia, unspecified

== ENCOUNTER → 2024-02-20 | Outpatient (CLI) | payer MEDICARE ==
[2024-02-20 14:36] LABS: BASO % 0.4 % (0.0-1.0); EOS # 0.1 10^3/uL (0.0-0.5); EOS % 1.5 % (0.0-3.0); HEMOGLOBIN 11.7 g/dl (13.5-17.5); LYMPH # 0.7 10^3/uL (1.5-5.0); LYMPH % 10.5 % (24.0-44.0); MEAN CORPUSCULAR HEMOGLOBIN 27.7 pg (27.0-33.0); MEAN CORPUSCULAR HGB CONC 31.6 g/dl (32.0-36.5); MEAN CORPUSCULAR VOLUME 87.5 fl (80.0-96.0); MONO # 0.9 10^3/uL (0.0-0.8); MONO % 12.9 % (2.0-8.0); NEUTROPHILS % 74.4 % (36.0-66.0); PLATELET COUNT, AUTOMATED 140 10^3/uL (150-450); RED BLOOD COUNT 4.23 10^6/uL (4.30-6.10); WHITE BLOOD COUNT 6.7 10^3/uL (4.0-10.0)
[2024-02-20 14:42] LABS: ALBUMIN 3.5 G/DL (3.2-5.2); BILIRUBIN,TOTAL 0.8 MG/DL (0.3-1.2); CALCIUM LEVEL 8.9 MG/DL (8.3-10.6); CREATININE FOR GFR 1.47 MG/DL (0.70-1.30); GLOMERULAR FILTRATION RATE 48.4 (>35); POTASSIUM SERUM 3.7 MMOL/L (3.5-5.1); TOTAL PROTEIN 6.9 G/DL (5.7-8.2)
[2024-02-20 14:46] LABS: FERRITIN 39.9 NG/ML (10.5-307.3)
== END ==
LOC: M PLALAB 10:24
PROVIDERS: ATTEND Family Medicine
DX: I50.32 Chronic diastolic (congestive) heart failure (principal)

== ENCOUNTER → 2024-02-28 | Outpatient (REF) | payer MEDICARE | LOC: M SFHCPLAZ 17:36 | PROVIDERS: ATTEND Family Medicine | DX: D50.9 Iron deficiency anemia, unspecified (principal); I50.32 Chronic diastolic (congestive) heart failure ==

== ENCOUNTER → 2024-02-28 | Outpatient (CLI) | payer MEDICARE ==
[2024-02-28 15:19] LABS: BASO % 0.3 % (0.0-1.0); EOS # 0.1 10^3/uL (0.0-0.5); EOS % 1.8 % (0.0-3.0); HEMATOCRIT 36.9 % (42.0-52.0); HEMOGLOBIN 11.7 g/dl (13.5-17.5); LYMPH # 0.8 10^3/uL (1.5-5.0); LYMPH % 13.7 % (24.0-44.0); MEAN CORPUSCULAR HEMOGLOBIN 27.6 pg (27.0-33.0); MEAN CORPUSCULAR HGB CONC 31.7 g/dl (32.0-36.5); MONO # 0.7 10^3/uL (0.0-0.8); MONO % 11.8 % (2.0-8.0); NEUTROPHILS # 4.4 10^3/uL (1.5-8.5); NEUTROPHILS % 72.2 % (36.0-66.0); PLATELET COUNT, AUTOMATED 133 10^3/uL (150-450); RED BLOOD COUNT 4.24 10^6/uL (4.30-6.10); WHITE BLOOD COUNT 6.1 10^3/uL (4.0-10.0)
[2024-02-28 15:47] LABS: ALBUMIN 3.4 G/DL (3.2-5.2); BILIRUBIN,TOTAL 0.7 MG/DL (0.3-1.2); CALCIUM LEVEL 9.1 MG/DL (8.3-10.6); CREATININE FOR GFR 1.53 MG/DL (0.70-1.30); GLOMERULAR FILTRATION RATE 46.2 (>35); POTASSIUM SERUM 3.7 MMOL/L (3.5-5.1); TOTAL PROTEIN 6.8 G/DL (5.7-8.2)
[2024-02-28 15:48] LABS: FERRITIN 36.8 NG/ML (10.5-307.3)
== END ==
LOC: M PLALAB 13:55
PROVIDERS: ATTEND Family Medicine
DX: D50.9 Iron deficiency anemia, unspecified (principal); I50.32 Chronic diastolic (congestive) heart failure

== ENCOUNTER 2024-03-03 09:00 | Outpatient (CLI) | payer MEDICARE ==
[~2024-03-03] VITALS: Ht 172.7 cm; Wt 81.8 kg
[~2024-03-03 09:00] MED LIST changes: +ALBUTEROL SULFATE 2.5MG/0.5ML INH NEB SOLN INH PRN; +EPINEPHrine INJ 1 MG/ML 1ML AMP IM PRN; +NS 1,000 ML IV SCH; +diphenhydrAMINE 50MG/ML VIAL IV PRN; +methylPREDNISolone 125MG 2ML VIAL IV PRN
[2024-03-03 09:07] VITALS: BP 149/70; O2SAT 98
[2024-03-03] MEDS: IRON SUCROSE 500 MG in NS 250 ML OVER 4 HRS IV ONE (09:22)
[2024-03-03 11:08] VITALS: BP 145/65; O2SAT 100
[2024-03-03 13:20] VITALS: BP 179/77; O2SAT 99
== END 2024-03-03 13:25 ==
LOC: M INFU 09:00
PROVIDERS: ATTEND Family Medicine
DX: D50.9 Iron deficiency anemia, unspecified (principal)
CPT/HCPCS: 96365; 96366; J1756

== ENCOUNTER → 2024-03-10 | Outpatient (CLI) | payer MEDICARE ==
[~2024-03-10] MED LIST changes: -ALBUTEROL SULFATE 2.5MG/0.5ML INH NEB SOLN INH PRN; -EPINEPHrine INJ 1 MG/ML 1ML AMP IM PRN; -NS 1,000 ML IV SCH; -diphenhydrAMINE 50MG/ML VIAL IV PRN; -methylPREDNISolone 125MG 2ML VIAL IV PRN
[2024-03-10 13:03] LABS: BASO % 0.2 % (0.0-1.0); EOS # 0.1 10^3/uL (0.0-0.5); EOS % 0.9 % (0.0-3.0); HEMOGLOBIN 13.8 g/dl (13.5-17.5); LYMPH # 0.8 10^3/uL (1.5-5.0); LYMPH % 7.7 % (24.0-44.0); MEAN CORPUSCULAR HEMOGLOBIN 27.7 pg (27.0-33.0); MEAN CORPUSCULAR HGB CONC 32.1 g/dl (32.0-36.5); MEAN CORPUSCULAR VOLUME 86.3 fl (80.0-96.0); MONO # 1.2 10^3/uL (0.0-0.8); MONO % 11.5 % (2.0-8.0); NEUTROPHILS # 7.8 10^3/uL (1.5-8.5); NEUTROPHILS % 78.6 % (36.0-66.0); PLATELET COUNT, AUTOMATED 169 10^3/uL (150-450); RED BLOOD COUNT 4.98 10^6/uL (4.30-6.10)
[2024-03-10 13:47] LABS: ALBUMIN 3.7 G/DL (3.2-5.2); BILIRUBIN,TOTAL 0.8 MG/DL (0.3-1.2); CALCIUM LEVEL 9.1 MG/DL (8.3-10.6); CREATININE FOR GFR 1.72 MG/DL (0.70-1.30); FERRITIN 461.1 NG/ML (10.5-307.3); GLOMERULAR FILTRATION RATE 40.3 (>35); MAGNESIUM LEVEL 2.2 MG/DL (1.8-2.4); POTASSIUM SERUM 4.1 MMOL/L (3.5-5.1); TOTAL PROTEIN 7.3 G/DL (5.7-8.2)
== END ==
LOC: M PLALAB 11:22
PROVIDERS: ATTEND Family Medicine
DX: D50.9 Iron deficiency anemia, unspecified (principal); I50.32 Chronic diastolic (congestive) heart failure

== ENCOUNTER 2024-03-17 10:41 | Inpatient (IN) | payer MEDICARE ==
[~2024-03-17] VITALS: Ht 172.7 cm; Wt 79.3 kg
[~2024-03-17 10:41] MED LIST changes: -XARE15TA
[2024-03-17 11:46] LABS: BASO % 0.3 % (0.0-1.0); EOS # 0.1 10^3/uL (0.0-0.5); EOS % 0.9 % (0.0-3.0); HEMATOCRIT 44.9 % (42.0-52.0); HEMOGLOBIN 14.4 g/dl (13.5-17.5); LYMPH # 0.8 10^3/uL (1.5-5.0); LYMPH % 7.4 % (24.0-44.0); MEAN CORPUSCULAR HEMOGLOBIN 27.3 pg (27.0-33.0); MEAN CORPUSCULAR HGB CONC 32.1 g/dl (32.0-36.5); MEAN CORPUSCULAR VOLUME 85.2 fl (80.0-96.0); MONO % 9.3 % (2.0-8.0); NEUTROPHILS # 8.7 10^3/uL (1.5-8.5); NEUTROPHILS % 81.2 % (36.0-66.0); PLATELET COUNT, AUTOMATED 127 10^3/uL (150-450); RED BLOOD COUNT 5.27 10^6/uL (4.30-6.10); WHITE BLOOD COUNT 10.7 10^3/uL (4.0-10.0)
[2024-03-17] MEDS ORDERED: TORS20TA2 PO (11:54)
[2024-03-17] MEDS ORDERED: SPIR-10 PO (11:54)
[2024-03-17 11:56] LABS: PARTIAL THROMBOPLASTIN TIME 50.8 SECONDS (24.8-34.2)
[2024-03-17 12:19] LABS: ALBUMIN 3.9 G/DL (3.2-5.2); BILIRUBIN,DIRECT 0.4 MG/DL (<0.4); BILIRUBIN,TOTAL 0.8 MG/DL (0.3-1.2); CALCIUM LEVEL 8.9 MG/DL (8.3-10.6); CK-MB VALUE MASS 2.1 NG/ML (<3.6); CREATININE FOR GFR 1.65 MG/DL (0.70-1.30); GLOMERULAR FILTRATION RATE 42.3 (>35); MB/CK RELATIVE INDEX 2.56 (< OR =4); TOTAL PROTEIN 7.5 G/DL (5.7-8.2)
[2024-03-17 12:20] LABS: THYROID STIMULATING HORMONE 2.705 uIU/ML (0.55-4.78)
[2024-03-17 13:01] LABS: INR 2.42; PROTHROMBIN TIME 25.4 SECONDS (12.5-14.5)
[2024-03-17 13:31] LABS: CK-MB VALUE MASS 1.7 NG/ML (<3.6)
[2024-03-17 13:34] LABS: MB/CK RELATIVE INDEX 2.36 (< OR =4)
[2024-03-17] MEDS ORDERED: HOME MED LIST COMPLETE! XX SCH (13:35)
[2024-03-17] MEDS ORDERED: MAALOX 30 ML SUSP *UDC PO PRN (15:35)
[2024-03-17] MEDS ORDERED: MOM 30ML SUSPENSION UDC PO PRN (15:35)
[2024-03-17] MEDS ORDERED: GLUCAGON INJ 1MG VIAL SC PRN (15:35)
[2024-03-17] MEDS ORDERED: DEXTROSE 50% 50ML SYRINGE IV PRN (15:35)
[2024-03-17] MEDS ORDERED: GLUCOSE 4 GM CHEW PO PRN (15:35)
[2024-03-17] MEDS ORDERED: ACETAMINOPHEN TAB 650MG DOSE (2X325MG) PO PRN (15:35)
[2024-03-17 16:10] LABS: MAGNESIUM LEVEL 2.2 MG/DL (1.8-2.4)
[2024-03-17] MEDS: INSULIN LISPRO (NovoLOG) PER UNIT SC SCH ×2 (19:18→20:57)
[2024-03-17 20:35] VITALS: BP 146/67; TEMP 98; O2SAT 96
[2024-03-17 20:36] VITALS: BP_SYST 135; BP_SYST 137; BP_SYST 139; BP_DIAS 66; BP_DIAS 67
[2024-03-17] MEDS: ATORVASTATIN 20 MG TAB PO SCH (20:54)
[2024-03-17 21:00] VITALS: BP 142/65; O2SAT 96
[2024-03-17 22:00] VITALS: BP 147/65; O2SAT 95
[2024-03-17 23:00] VITALS: O2SAT 88
[2024-03-18 00:01] VITALS: BP 130/60; TEMP 98.4; O2SAT 97
[2024-03-18 04:00] VITALS: BP 140/63; TEMP 97.9; O2SAT 98
[2024-03-18 05:39] LABS: CREATININE FOR GFR 1.59 MG/DL (0.70-1.30); GLOMERULAR FILTRATION RATE 44.2 (>35); MAGNESIUM LEVEL 2.2 MG/DL (1.8-2.4); POTASSIUM SERUM 3.8 MMOL/L (3.5-5.1)
[2024-03-18 07:00] VITALS: O2SAT 99
[2024-03-18 08:10] VITALS: BP 136/86; TEMP 97.2; O2SAT 99
[2024-03-18] MEDS: POTASSIUM CHLORIDE 10MEQ SR TABLET PO SCH (08:28)
[2024-03-18] MEDS: CYANOCOBALAMIN 500 MCG TAB PO SCH (08:28)
[2024-03-18] MEDS: TORSEMIDE 20 MG TAB PO SCH (08:28)
[2024-03-18] MEDS: PANTOPRAZOLE 40MG TAB (PROTONIX) PO SCH (08:29)
[2024-03-18] MEDS: SERTRALINE HCL 50 MG TAB PO SCH (08:29)
[2024-03-18] MEDS: RIVAROXABAN 15MG TAB (XARELTO) PO SCH (08:29)
[2024-03-18 09:00] VITALS: O2SAT 96
[2024-03-18 12:00] VITALS: BP 157/70; TEMP 97.2; O2SAT 97
== END 2024-03-18 16:15 | disposition home or self-care (01) | DRG 309 ==
LOC: M ED 10:41 → M ED INP 10:42 → OBSVTOIN 13:10 → ENRESERV 19:34 → M ICU 20:31
PROVIDERS: ADMIT Student in an Organized Health Care Education/Training Program; ATTEND Student in an Organized Health Care Education/Training Program
DX: R00.1 Bradycardia, unspecified (principal); I50.32 Chronic diastolic (congestive) heart failure; I13.0 Hypertensive heart and chronic kidney disease with heart failure and stage 1 through stage 4 chronic kidney disease, or unspecified chronic kidney disease; I25.10 Atherosclerotic heart disease of native coronary artery without angina pectoris; I35.0 Nonrheumatic aortic (valve) stenosis; I48.91 Unspecified atrial fibrillation; D50.9 Iron deficiency anemia, unspecified; E53.8 Deficiency of other specified B group vitamins; E78.5 Hyperlipidemia, unspecified; N40.0 Benign prostatic hyperplasia without lower urinary tract symptoms; G47.33 Obstructive sleep apnea (adult) (pediatric); Z66 Do not resuscitate; R29.6 Repeated falls; E11.42 Type 2 diabetes mellitus with diabetic polyneuropathy; K59.09 Other constipation; K64.2 Third degree hemorrhoids; F41.9 Anxiety disorder, unspecified; N18.32 Chronic kidney disease, stage 3b; E11.22 Type 2 diabetes mellitus with diabetic chronic kidney disease; Z79.84 Long term (current) use of oral hypoglycemic drugs; Z79.899 Other long term (current) drug therapy; Z95.2 Presence of prosthetic heart valve; Z95.5 Presence of coronary angioplasty implant and graft; Z87.891 Personal history of nicotine dependence; Z79.01 Long term (current) use of anticoagulants

== ENCOUNTER → 2024-03-18 | Outpatient (CLI) | payer MEDICARE ==
[~2024-03-18] MED LIST changes: -POTA10CA60 PO; +POTA10CA70 PO; +SPIR-10 PO; +TORS20TA2 PO
== END ==
LOC: M EKG 16:21
PROVIDERS: ATTEND Internal Medicine Cardiovascular Disease
DX: R00.1 Bradycardia, unspecified (principal)

== ENCOUNTER → 2024-03-25 | Outpatient (CLI) | payer MEDICARE ==
[2024-03-25 10:30] LABS: BASO % 0.1 % (0.0-1.0); EOS # 0.2 10^3/uL (0.0-0.5); HEMATOCRIT 40.1 % (42.0-52.0); LYMPH # 0.6 10^3/uL (1.5-5.0); LYMPH % 7.4 % (24.0-44.0); MEAN CORPUSCULAR HEMOGLOBIN 27.9 pg (27.0-33.0); MEAN CORPUSCULAR HGB CONC 32.4 g/dl (32.0-36.5); MEAN CORPUSCULAR VOLUME 86.1 fl (80.0-96.0); NEUTROPHILS # 6.2 10^3/uL (1.5-8.5); PLATELET COUNT, AUTOMATED 116 10^3/uL (150-450); RED BLOOD COUNT 4.66 10^6/uL (4.30-6.10)
[2024-03-25 11:03] LABS: ALBUMIN 3.3 G/DL (3.2-5.2); CREATININE FOR GFR 1.91 MG/DL (0.70-1.30); GLOMERULAR FILTRATION RATE 35.7 (>35); MAGNESIUM LEVEL 2.1 MG/DL (1.8-2.4); POTASSIUM SERUM 4.5 MMOL/L (3.5-5.1); TOTAL PROTEIN 6.5 G/DL (5.7-8.2)
[2024-03-25 11:04] LABS: FERRITIN 340.2 NG/ML (10.5-307.3)
== END ==
LOC: M PLALAB 08:43
PROVIDERS: ATTEND Family Medicine
DX: D50.9 Iron deficiency anemia, unspecified (principal); I50.32 Chronic diastolic (congestive) heart failure

== ENCOUNTER → 2024-03-27 | Outpatient (REF) | payer MEDICARE | LOC: M SFHCPLAZ 11:54 | PROVIDERS: ATTEND Family Medicine | DX: D50.9 Iron deficiency anemia, unspecified (principal); I50.32 Chronic diastolic (congestive) heart failure ==

== ENCOUNTER → 2024-04-03 | Outpatient (CLI) | payer MEDICARE | LOC: M PLAIMG 16:41 | PROVIDERS: ATTEND Physician Assistant Medical | DX: M19.011 Primary osteoarthritis, right shoulder (principal) ==

== ENCOUNTER → 2024-04-30 | Outpatient (CLI) | payer MEDICARE ==
[~2024-04-30] MED LIST changes: +ACETAMINOPHEN 1000MG 100ML IV BAG As Ordered ONE; +KETOROLAC 60MG 2ML VIAL As Ordered ONE; +MORPHINE PRES-FREE INJ 10 MG/10 ML VIAL As Ordered ONE; +ONDANSETRON 4MG 2ML VIAL As Ordered ONE; +OXYTOCIN 30UNITS IN 0.9% NaCl 500ML IV BAG As Ordered ONE
[2024-04-30 10:15] LABS: BASO % 0.3 % (0.0-1.0); EOS # 0.2 10^3/uL (0.0-0.5); EOS % 2.3 % (0.0-3.0); HEMATOCRIT 36.4 % (42.0-52.0); HEMOGLOBIN 11.9 g/dl (13.5-17.5); LYMPH # 0.6 10^3/uL (1.5-5.0); LYMPH % 8.7 % (24.0-44.0); MEAN CORPUSCULAR HEMOGLOBIN 29.8 pg (27.0-33.0); MEAN CORPUSCULAR HGB CONC 32.7 g/dl (32.0-36.5); MONO # 0.8 10^3/uL (0.0-0.8); MONO % 11.7 % (2.0-8.0); NEUTROPHILS # 4.9 10^3/uL (1.5-8.5); NEUTROPHILS % 76.1 % (36.0-66.0); PLATELET COUNT, AUTOMATED 147 10^3/uL (150-450); WHITE BLOOD COUNT 6.5 10^3/uL (4.0-10.0)
[2024-04-30 10:47] LABS: FERRITIN 329.4 NG/ML (10.5-307.3)
[2024-04-30 10:53] LABS: ALBUMIN 3.3 G/DL (3.2-5.2); CALCIUM LEVEL 9.5 MG/DL (8.3-10.6); CREATININE FOR GFR 1.57 MG/DL (0.70-1.30); GLOMERULAR FILTRATION RATE 44.7 (>35); MAGNESIUM LEVEL 1.8 MG/DL (1.8-2.4); POTASSIUM SERUM 4.3 MMOL/L (3.5-5.1); TOTAL PROTEIN 6.6 G/DL (5.7-8.2)
== END ==
LOC: M PLALAB 08:46
PROVIDERS: ATTEND Family Medicine
DX: D50.9 Iron deficiency anemia, unspecified (principal)

== ENCOUNTER → 2024-05-16 | Outpatient (REF) | payer MEDICARE ==
[~2024-05-16] MED LIST changes: -ACETAMINOPHEN 1000MG 100ML IV BAG As Ordered ONE; -KETOROLAC 60MG 2ML VIAL As Ordered ONE; -MORPHINE PRES-FREE INJ 10 MG/10 ML VIAL As Ordered ONE; -ONDANSETRON 4MG 2ML VIAL As Ordered ONE; -OXYTOCIN 30UNITS IN 0.9% NaCl 500ML IV BAG As Ordered ONE
== END ==
LOC: M SFHCPLAZ 11:50
PROVIDERS: ATTEND Family Medicine
DX: D50.9 Iron deficiency anemia, unspecified (principal); I50.32 Chronic diastolic (congestive) heart failure

== ENCOUNTER → 2024-05-19 | Outpatient (REF) | payer MEDICARE | LOC: M SFHCPLAZ 13:02 | PROVIDERS: ATTEND Family Medicine | DX: D50.9 Iron deficiency anemia, unspecified (principal); I50.32 Chronic diastolic (congestive) heart failure ==

== ENCOUNTER → 2024-05-23 | Outpatient (CLI) | payer MEDICARE ==
[2024-05-23 10:09] LABS: BASO % 0.2 % (0.0-1.0); EOS # 0.1 10^3/uL (0.0-0.5); EOS % 0.9 % (0.0-3.0); HEMATOCRIT 39.9 % (42.0-52.0); HEMOGLOBIN 12.8 g/dl (13.5-17.5); LYMPH # 0.8 10^3/uL (1.5-5.0); LYMPH % 8.4 % (24.0-44.0); MEAN CORPUSCULAR HEMOGLOBIN 30.3 pg (27.0-33.0); MEAN CORPUSCULAR HGB CONC 32.1 g/dl (32.0-36.5); MEAN CORPUSCULAR VOLUME 94.3 fl (80.0-96.0); MONO # 1.1 10^3/uL (0.0-0.8); MONO % 11.4 % (2.0-8.0); NEUTROPHILS # 7.2 10^3/uL (1.5-8.5); PLATELET COUNT, AUTOMATED 178 10^3/uL (150-450); RED BLOOD COUNT 4.23 10^6/uL (4.30-6.10); WHITE BLOOD COUNT 9.2 10^3/uL (4.0-10.0)
[2024-05-23 10:25] LABS: ALBUMIN 3.8 G/DL (3.2-5.2); BILIRUBIN,TOTAL 1.1 MG/DL (0.3-1.2); CALCIUM LEVEL 9.6 MG/DL (8.3-10.6); CREATININE FOR GFR 1.75 MG/DL (0.70-1.30); GLOMERULAR FILTRATION RATE 39.4 (>35); MAGNESIUM LEVEL 2.5 MG/DL (1.8-2.4); POTASSIUM SERUM 4.3 MMOL/L (3.5-5.1)
[2024-05-23 10:26] LABS: FERRITIN 266.1 NG/ML (10.5-307.3)
[2024-05-24 06:17] LABS: PROTEIN, TOTAL SO 7.1 g/dL (6.1-8.1)
[2024-05-26 14:28] LABS: ERYTHROPOIETIN 12.1 mIU/mL (2.6-18.5)
== END ==
LOC: M PLALAB 07:47
PROVIDERS: ATTEND Family Medicine
DX: E50.9 Vitamin A deficiency, unspecified (principal); I50.32 Chronic diastolic (congestive) heart failure

== ENCOUNTER → 2024-06-23 | Outpatient (CLI) | payer MEDICARE ==
[2024-06-23 15:27] LABS: BASO % 0.2 % (0.0-1.0); EOS % 0.3 % (0.0-3.0); HEMATOCRIT 38.9 % (42.0-52.0); HEMOGLOBIN 12.5 g/dl (13.5-17.5); LYMPH # 0.6 10^3/uL (1.5-5.0); LYMPH % 6.6 % (24.0-44.0); MEAN CORPUSCULAR HEMOGLOBIN 30.9 pg (27.0-33.0); MEAN CORPUSCULAR HGB CONC 32.1 g/dl (32.0-36.5); MONO # 1.1 10^3/uL (0.0-0.8); MONO % 12.1 % (2.0-8.0); NEUTROPHILS # 7.5 10^3/uL (1.5-8.5); NEUTROPHILS % 80.2 % (36.0-66.0); PLATELET COUNT, AUTOMATED 155 10^3/uL (150-450); RED BLOOD COUNT 4.05 10^6/uL (4.30-6.10); WHITE BLOOD COUNT 9.4 10^3/uL (4.0-10.0)
[2024-06-23 15:55] LABS: ALBUMIN 3.6 G/DL (3.2-5.2); CALCIUM LEVEL 9.2 MG/DL (8.3-10.6); CREATININE FOR GFR 1.64 MG/DL (0.70-1.30); GLOMERULAR FILTRATION RATE 42.5 (>35); MAGNESIUM LEVEL 2.2 MG/DL (1.8-2.4); POTASSIUM SERUM 4.1 MMOL/L (3.5-5.1); PTH INTACT 42.7 PG/ML (18.5-88.0); TOTAL 25(OH) VITAMIN D 50.3 NG/ML (20.0-100.0); TOTAL PROTEIN 6.8 G/DL (5.7-8.2)
[2024-06-23 15:56] LABS: FERRITIN 277.2 NG/ML (10.5-307.3)
== END ==
LOC: M PLALAB 08:42
PROVIDERS: ATTEND Family Medicine
DX: D50.9 Iron deficiency anemia, unspecified (principal); I50.32 Chronic diastolic (congestive) heart failure; R77.2 Abnormality of alphafetoprotein; Z79.899 Other long term (current) drug therapy

== ENCOUNTER → 2024-07-10 | Outpatient (CLI) | payer MEDICARE ==
[2024-07-10 17:43] LABS: HEMATOCRIT 37.8 % (42.0-52.0); HEMOGLOBIN 12.3 g/dl (13.5-17.5); MEAN CORPUSCULAR HGB CONC 32.5 g/dl (32.0-36.5); MEAN CORPUSCULAR VOLUME 95.2 fl (80.0-96.0); PLATELET COUNT, AUTOMATED 167 10^3/uL (150-450); RED BLOOD COUNT 3.97 10^6/uL (4.30-6.10); WHITE BLOOD COUNT 7.3 10^3/uL (4.0-10.0)
[2024-07-10 17:50] LABS: ALBUMIN 3.5 G/DL (3.2-5.2); BILIRUBIN,TOTAL 0.7 MG/DL (0.3-1.2); CALCIUM LEVEL 9.1 MG/DL (8.3-10.6); CREATININE FOR GFR 1.82 MG/DL (0.70-1.30); GLOMERULAR FILTRATION RATE 37.7 (>35); MAGNESIUM LEVEL 2.3 MG/DL (1.8-2.4); POTASSIUM SERUM 3.9 MMOL/L (3.5-5.1); TOTAL PROTEIN 6.8 G/DL (5.7-8.2)
== END ==
LOC: M PLALAB 14:42
PROVIDERS: ATTEND Family Medicine
DX: I50.32 Chronic diastolic (congestive) heart failure (principal)

== ENCOUNTER → 2024-07-22 | Outpatient (CLI) | payer MEDICARE ==
[2024-07-22 12:49] LABS: APPEARANCE, URINE CLEAR (CLEAR); BACTERIA, URINE AUTO NEGATIVE (NEGATIVE); BILIRUBIN, URINE AUTO NEGATIVE (NEGATIVE); BLOOD, URINE BLOOD NEGATIVE (NEGATIVE); COLOR, URINE STRAW (YELLOW); GLUCOSE, URINE (UA) AUTO 3+ mg/dL (NEGATIVE); KETONE, URINE AUTO NEGATIVE (NEGATIVE); LEUKOCYTE ESTERASE, URINE AUTO NEGATIVE (NEGATIVE); NITRITE, URINE AUTO NEGATIVE (NEGATIVE); PROTEIN, URINE AUTO NEGATIVE (NEGATIVE); RBC, URINE AUTO 0 /HPF (0-3); SQUAMOUS EPITHELIAL CELL UR AU 0 /HPF (0-6); UROBILINOGEN, URINE AUTO 0.2 mg/dL (0.0-2.0); WBC, URINE AUTO 0 /HPF (0-3)
[2024-07-22 14:53] LABS: THYROID STIMULATING HORMONE 4.878 uIU/ML (0.55-4.78)
[2024-07-22 14:54] LABS: FOLATE > 24.0 NG/ML (>5.4)
[2024-07-22 14:56] LABS: FREE T4 1.18 NG/DL (0.89-1.76); VITAMIN B12 LEVEL 1407 PG/ML (211-911)
== END ==
LOC: M PLALAB 10:19
DX: R29.6 Repeated falls (principal); Z79.899 Other long term (current) drug therapy

== ENCOUNTER → 2024-08-14 | Outpatient (REF) | payer MEDICARE | LOC: M SFHCPLAZ 13:12 | DX: N18.32 Chronic kidney disease, stage 3b (principal); I50.30 Unspecified diastolic (congestive) heart failure; E11.65 Type 2 diabetes mellitus with hyperglycemia ==

== ENCOUNTER → 2024-08-14 | Outpatient (CLI) | payer MEDICARE ==
[2024-08-14 15:46] LABS: HEMATOCRIT 39.8 % (42.0-52.0); HEMOGLOBIN 13.1 g/dl (13.5-17.5); MEAN CORPUSCULAR HEMOGLOBIN 31.5 pg (27.0-33.0); MEAN CORPUSCULAR HGB CONC 32.9 g/dl (32.0-36.5); MEAN CORPUSCULAR VOLUME 95.7 fl (80.0-96.0); PLATELET COUNT, AUTOMATED 151 10^3/uL (150-450); RED BLOOD COUNT 4.16 10^6/uL (4.30-6.10); WHITE BLOOD COUNT 7.9 10^3/uL (4.0-10.0)
[2024-08-14 15:50] LABS: BILIRUBIN,TOTAL 0.9 MG/DL (0.3-1.2); CALCIUM LEVEL 9.7 MG/DL (8.3-10.6); CREATININE FOR GFR 1.87 MG/DL (0.70-1.30); GLOMERULAR FILTRATION RATE 36.5 (>35); MAGNESIUM LEVEL 2.6 MG/DL (1.8-2.4); POTASSIUM SERUM 3.7 MMOL/L (3.5-5.1); TOTAL PROTEIN 7.5 G/DL (5.7-8.2)
[2024-08-14 16:04] LABS: HEMOGLOBIN A1c 8.2 % (4.0-6.0)
== END ==
LOC: M PLALAB 13:35
PROVIDERS: ATTEND Family Medicine
DX: N18.32 Chronic kidney disease, stage 3b (principal); I50.30 Unspecified diastolic (congestive) heart failure; E11.65 Type 2 diabetes mellitus with hyperglycemia

== ENCOUNTER → 2024-09-02 | Outpatient (CLI) | payer MEDICARE ==
[2024-09-02 15:06] LABS: HEMATOCRIT 37.2 % (42.0-52.0); HEMOGLOBIN 12.2 g/dl (13.5-17.5); MEAN CORPUSCULAR HEMOGLOBIN 31.7 pg (27.0-33.0); MEAN CORPUSCULAR HGB CONC 32.8 g/dl (32.0-36.5); MEAN CORPUSCULAR VOLUME 96.6 fl (80.0-96.0); PLATELET COUNT, AUTOMATED 147 10^3/uL (150-450); RED BLOOD COUNT 3.85 10^6/uL (4.30-6.10); WHITE BLOOD COUNT 6.8 10^3/uL (4.0-10.0)
[2024-09-02 15:36] LABS: ALBUMIN 3.4 G/DL (3.2-5.2); BILIRUBIN,TOTAL 0.8 MG/DL (0.3-1.2); CALCIUM LEVEL 9.5 MG/DL (8.3-10.6); CREATININE FOR GFR 1.55 MG/DL (0.70-1.30); GLOMERULAR FILTRATION RATE 45.4 (>35); MAGNESIUM LEVEL 2.4 MG/DL (1.8-2.4); POTASSIUM SERUM 3.8 MMOL/L (3.5-5.1); TOTAL PROTEIN 6.7 G/DL (5.7-8.2)
[2024-09-02 15:37] LABS: HEMOGLOBIN A1c 7.8 % (4.0-6.0)
== END ==
LOC: M PLALAB 10:23
DX: N18.32 Chronic kidney disease, stage 3b (principal); Z79.899 Other long term (current) drug therapy

== ENCOUNTER 2024-10-22 08:54 | Emergency (ER) | payer MEDICARE ==
[~2024-10-22] VITALS: Ht 172.7 cm; Wt 85.9 kg
[2024-10-22] MEDS ORDERED: BOOSTRIX VACCINE (TETANUS/DIPHTH/ACEL. PERTUSSIS) 0.5ML SYR IM.IMMUN ONE (11:10)
[2024-10-22 11:15] VITALS: BP 136/58; TEMP 97.4; O2SAT 95
== END 2024-10-22 11:24 | disposition home or self-care (01) ==
LOC: M ED 08:54
DX: S00.01XA Abrasion of scalp, initial encounter (principal); S40.011A Contusion of right shoulder, initial encounter; Y92.019 Unspecified place in single-family (private) house as the place of occurrence of the external cause; Y93.9 Activity, unspecified; Y99.9 Unspecified external cause status; W01.0XXA Fall on same level from slipping, tripping and stumbling without subsequent striking against object, initial encounter; I25.119 Atherosclerotic heart disease of native coronary artery with unspecified angina pectoris; I48.91 Unspecified atrial fibrillation; E11.9 Type 2 diabetes mellitus without complications; I12.9 Hypertensive chronic kidney disease with stage 1 through stage 4 chronic kidney disease, or unspecified chronic kidney disease; E78.5 Hyperlipidemia, unspecified; D64.9 Anemia, unspecified; G47.33 Obstructive sleep apnea (adult) (pediatric); Z79.01 Long term (current) use of anticoagulants; Z79.84 Long term (current) use of oral hypoglycemic drugs; Z79.899 Other long term (current) drug therapy

== ENCOUNTER → 2024-10-29 | Outpatient (CLI) | payer MEDICARE ==
[2024-10-29 10:40] LABS: HEMATOCRIT 37.1 % (42.0-52.0); HEMOGLOBIN 12.3 g/dl (13.5-17.5); LYMPH # 0.4 10^3/uL (1.5-5.0); LYMPH % 3.7 % (24.0-44.0); MEAN CORPUSCULAR HEMOGLOBIN 30.8 pg (27.0-33.0); MEAN CORPUSCULAR HGB CONC 33.2 g/dl (32.0-36.5); MEAN CORPUSCULAR VOLUME 92.8 fl (80.0-96.0); MONO # 0.5 10^3/uL (0.0-0.8); MONO % 5.1 % (2.0-8.0); NEUTROPHILS # 8.6 10^3/uL (1.5-8.5); NEUTROPHILS % 90.6 % (36.0-66.0); PLATELET COUNT, AUTOMATED 162 10^3/uL (150-450); WHITE BLOOD COUNT 9.5 10^3/uL (4.0-10.0)
[2024-10-29 11:07] LABS: PSA SCREENING 0.9 NG/ML (< 4.00)
[2024-10-29 11:12] LABS: FREE T4 0.86 NG/DL (0.89-1.76)
[2024-10-29 11:13] LABS: ALBUMIN 3.5 G/DL (3.2-5.2); BILIRUBIN,TOTAL 1.1 MG/DL (0.3-1.2); CALCIUM LEVEL 9.8 MG/DL (8.3-10.6); CHOLESTEROL RISK RATIO 3.73 (<5); CREATININE FOR GFR 1.8 MG/DL (0.70-1.30); FERRITIN 189.2 NG/ML (10.5-307.3); GLOMERULAR FILTRATION RATE 38.2 (>35); HDL CHOLESTEROL 48.4 MG/DL (>40); NON-HDL-C 132.6 MG/DL; POTASSIUM SERUM 4.5 MMOL/L (3.5-5.1); THYROID STIMULATING HORMONE 2.079 uIU/ML (0.55-4.78); TOTAL PROTEIN 7.2 G/DL (5.7-8.2)
== END ==
LOC: M PLALAB 08:40
PROVIDERS: ATTEND Family Medicine
DX: I50.32 Chronic diastolic (congestive) heart failure (principal); Z12.5 Encounter for screening for malignant neoplasm of prostate
CPT/HCPCS: 36415; 80053; 80061; 82728; 83735; 83880; 84238; 84439; 84443; 85025; G0103

== ENCOUNTER → 2024-12-02 | Outpatient (CLI) | payer MEDICARE | LOC: M WUC 11:49 | PROVIDERS: ATTEND Physician Assistant | DX: M19.011 Primary osteoarthritis, right shoulder (principal); M85.811 Other specified disorders of bone density and structure, right shoulder ==

== ENCOUNTER 2024-12-15 13:16 | Emergency (ER) | payer MEDICARE ==
[~2024-12-15] VITALS: Ht 172.7 cm; Wt 83.8 kg
[2024-12-15 13:18] VITALS: BP 189/82; TEMP 97.5; O2SAT 98
== END 2024-12-15 15:14 | disposition left against medical advice (07) ==
LOC: M ED 13:16
DX: Z53.21 Procedure and treatment not carried out due to patient leaving prior to being seen by health care provider (principal)

== ENCOUNTER → 2024-12-24 | Outpatient (CLI) | payer MEDICARE ==
[2024-12-24 12:36] LABS: BASO % 0.4 % (0.0-1.0); EOS # 0.1 10^3/uL (0.0-0.5); HEMATOCRIT 35.5 % (42.0-52.0); HEMOGLOBIN 11.3 g/dl (13.5-17.5); LYMPH # 0.6 10^3/uL (1.5-5.0); LYMPH % 7.3 % (24.0-44.0); MEAN CORPUSCULAR HGB CONC 31.8 g/dl (32.0-36.5); MEAN CORPUSCULAR VOLUME 94.2 fl (80.0-96.0); MONO # 0.9 10^3/uL (0.0-0.8); MONO % 11.2 % (2.0-8.0); NEUTROPHILS # 6.5 10^3/uL (1.5-8.5); NEUTROPHILS % 79.5 % (36.0-66.0); PLATELET COUNT, AUTOMATED 155 10^3/uL (150-450); RED BLOOD COUNT 3.77 10^6/uL (4.30-6.10); WHITE BLOOD COUNT 8.1 10^3/uL (4.0-10.0)
[2024-12-24 12:57] LABS: PSA SCREENING 0.9 NG/ML (< 4.00)
[2024-12-24 13:00] LABS: ALBUMIN 3.8 G/DL (3.2-5.2); BILIRUBIN,TOTAL 1.1 MG/DL (0.3-1.2); CALCIUM LEVEL 9.7 MG/DL (8.3-10.6); CHOLESTEROL RISK RATIO 2.89 (<5); CREATININE FOR GFR 1.8 MG/DL (0.70-1.30); FERRITIN 177.6 NG/ML (10.5-307.3); GLOMERULAR FILTRATION RATE 38.2 (>35); HDL CHOLESTEROL 51.4 MG/DL (>40); LDL CHOLESTEROL 75.8 MG/DL (<100); MAGNESIUM LEVEL 2.5 MG/DL (1.8-2.4); NON-HDL-C 97.6 MG/DL; POTASSIUM SERUM 4.3 MMOL/L (3.5-5.1); TOTAL PROTEIN 7.2 G/DL (5.7-8.2)
[2024-12-24 13:01] LABS: FREE T4 1.21 NG/DL (0.89-1.76)
[2024-12-24 13:02] LABS: THYROID STIMULATING HORMONE 2.792 uIU/ML (0.55-4.78)
== END ==
LOC: M PLALAB 10:28
PROVIDERS: ATTEND Family Medicine
DX: D50.9 Iron deficiency anemia, unspecified (principal); Z12.5 Encounter for screening for malignant neoplasm of prostate; I50.32 Chronic diastolic (congestive) heart failure; E11.8 Type 2 diabetes mellitus with unspecified complications
CPT/HCPCS: 36415; 80053; 80061; 82728; 83735; 83880; 84238; 84439; 84443; 85025; G0103

== ENCOUNTER 2025-01-14 13:29 | Outpatient (CLI) | payer MEDICARE ==
[~2025-01-14] VITALS: Ht 172.7 cm; Wt 82.7 kg
[~2025-01-14 13:29] MED LIST changes: +ALBUTEROL SULFATE 2.5MG/0.5ML INH NEB SOLN INH PRN; +EPINEPHrine INJ 1 MG/ML 1ML AMP IM PRN; +diphenhydrAMINE 50MG/ML VIAL IV PRN; +methylPREDNISolone 125MG 2ML VIAL IV PRN
[2025-01-14 13:49] VITALS: BP 144/67; O2SAT 97
[2025-01-14] MEDS: FERRIC CARBOXYMALTOSE 750 MG (VIAL MATE) IN 100ML NS IV ONE (13:59)
[2025-01-14 14:39] VITALS: BP 141/65; O2SAT 99
== END 2025-01-14 14:35 ==
LOC: M INFU 13:29
PROVIDERS: ATTEND Family Medicine
DX: D50.9 Iron deficiency anemia, unspecified (principal)
CPT/HCPCS: 96365; J1439

== ENCOUNTER 2025-05-18 13:48 | Outpatient (CLI) | payer MEDICARE ==
[~2025-05-18] VITALS: Ht 172.7 cm; Wt 84.1 kg
[~2025-05-18 13:48] MED LIST changes: +ALBUTEROL SULFATE 2.5 MG/0.5 ML INH CONCENTRATE NEB SOLN INH PRN; -ALBUTEROL SULFATE 2.5MG/0.5ML INH NEB SOLN INH PRN; +CEPH500C PO; -FLOM0.4C39 PO; +TAMS-18 PO; +diphenhydrAMINE 50 MG/ML VIAL IV PRN; -diphenhydrAMINE 50MG/ML VIAL IV PRN; +methylPREDNISolone 125 MG/2 ML VIAL IV PRN; -methylPREDNISolone 125MG 2ML VIAL IV PRN
[2025-05-18 14:10] VITALS: BP 103/51; O2SAT 100
[2025-05-18] MEDS: FERRIC CARBOXYMALTOSE 750 MG (VIAL MATE) IN 100ML NS IV ONE (14:38)
[2025-05-18 15:15] VITALS: BP 118/59; O2SAT 100
== END 2025-05-18 15:15 ==
LOC: M INFU 13:48
PROVIDERS: ATTEND Family Medicine
DX: D50.9 Iron deficiency anemia, unspecified (principal)
CPT/HCPCS: 96365; J1439

== ENCOUNTER 2025-06-01 08:28 | Emergency (ER) | payer MEDICARE ==
[~2025-06-01] VITALS: Ht 175.3 cm; Wt 84.1 kg
[~2025-06-01 08:28] MED LIST changes: -ALBUTEROL SULFATE 2.5 MG/0.5 ML INH CONCENTRATE NEB SOLN INH PRN; -EPINEPHrine INJ 1 MG/ML 1ML AMP IM PRN; -diphenhydrAMINE 50 MG/ML VIAL IV PRN; -methylPREDNISolone 125 MG/2 ML VIAL IV PRN
[2025-06-01 09:23] LABS: BASO # 0.0 10^3/uL (0.0-0.2); BASO % 0.2 % (0.0-1.0); EOS # 0.1 10^3/uL (0.0-0.5); EOS % 1.2 % (0.0-3.0); LYMPH # 0.5 10^3/uL (1.5-5.0); LYMPH % 5.4 % (24.0-44.0); MONO # 0.7 10^3/uL (0.0-0.8); MONO % 8.7 % (2.0-8.0); NEUTROPHILS # 7.1 10^3/uL (1.5-8.5); NEUTROPHILS % 83.2 % (36.0-66.0); PLATELET COUNT, AUTOMATED 154 10^3/uL (150-450)
[2025-06-01 09:33] LABS: INR 1.12
[2025-06-01 09:49] LABS: CK-MB VALUE MASS 1.9 NG/ML (<3.6)
[2025-06-01 09:50] LABS: ALT/SGPT 12.0 U/L (7.0-40); AST/SGOT 15.0 U/L (<34); CALCIUM LEVEL 8.3 MG/DL (8.3-10.6); CARBON DIOXIDE LEVEL 20.0 MMOL/L (20-31); CHLORIDE LEVEL 102.0 MMOL/L (98-107); CPK CREATINE PHOSPHOKINASE 61.0 U/L (46-171); CREATININE FOR GFR 1.92 MG/DL (0.70-1.30); GLOMERULAR FILTRATION RATE 33.1 (>35); MB/CK RELATIVE INDEX 3.11 (< OR =4); POTASSIUM SERUM 4.3 MMOL/L (3.5-5.1); SODIUM LEVEL 139.0 MMOL/L (136-145)
[2025-06-01 09:52] LABS: THYROXINE (T4) 4.5 UG/DL (4.5-10.9)
[2025-06-01] MEDS: PANTOPRAZOLE 40MG VIAL IV ONE (10:10)
[2025-06-01] MEDS: PANTOPRAZOLE SODIUM 40 MG in D5W 50 ML IV SCH (10:11)
[2025-06-01 11:12] VITALS: BP 146/64; TEMP 96.6
[2025-06-01 11:15] VITALS: BP 143/55; TEMP 96.6; O2SAT 99
[2025-06-01] MEDS ORDERED: JARD1TAB PO (11:19)
[2025-06-01] MEDS ORDERED: AVOD0.5C PO (11:19)
[2025-06-01] MEDS ORDERED: EZET10TA21 PO (11:19)
[2025-06-01] MEDS ORDERED: NITR0.4S14 SL (11:19)
[2025-06-01] MEDS ORDERED: METF500T13 PO (11:19)
[2025-06-01] MEDS ORDERED: HOME MED LIST COMPLETE! XX SCH (11:20)
[2025-06-01 11:30] VITALS: TEMP 96.6; O2SAT 100
[2025-06-01 11:31] VITALS: BP 161/66; O2SAT 100
[2025-06-01 12:00] VITALS: BP 129/60; TEMP 96.9; O2SAT 98
[2025-06-01 13:00] VITALS: BP 141/67; TEMP 96.7; O2SAT 100
== END 2025-06-01 13:15 | disposition short-term general hospital (02) ==
LOC: M ED 08:28
DX: K92.2 Gastrointestinal hemorrhage, unspecified (principal); D62 Acute posthemorrhagic anemia; I45.10 Unspecified right bundle-branch block; I48.91 Unspecified atrial fibrillation; I25.119 Atherosclerotic heart disease of native coronary artery with unspecified angina pectoris; E11.9 Type 2 diabetes mellitus without complications; E78.5 Hyperlipidemia, unspecified; N40.0 Benign prostatic hyperplasia without lower urinary tract symptoms; I12.9 Hypertensive chronic kidney disease with stage 1 through stage 4 chronic kidney disease, or unspecified chronic kidney disease; G47.33 Obstructive sleep apnea (adult) (pediatric); Z79.84 Long term (current) use of oral hypoglycemic drugs; Z79.01 Long term (current) use of anticoagulants; Z79.899 Other long term (current) drug therapy
CPT/HCPCS: 36430; 71045; 80048; 80076; 82550; 82553; 83880; 84436; 84443; 84484; 85025; 85610; 86850; 86900; 86901; 86920; 93005; 93041; 94760; 96374; 96375; 99285; J2470; P9016

== ENCOUNTER → 2025-06-08 | Outpatient (CLI) | payer MEDICARE ==
[~2025-06-08] MED LIST changes: +AVOD0.5C PO; +EZET10TA21 PO; +JARD1TAB PO; +NITR0.4S14 SL
[2025-06-08 18:41] LABS: BASO # 0.0 10^3/uL (0.0-0.2); BASO % 0.3 % (0.0-1.0); EOS # 0.1 10^3/uL (0.0-0.5); EOS % 1.5 % (0.0-3.0); LYMPH # 0.7 10^3/uL (1.5-5.0); LYMPH % 9.4 % (24.0-44.0); MONO # 0.8 10^3/uL (0.0-0.8); MONO % 10.3 % (2.0-8.0); NEUTROPHILS # 5.6 10^3/uL (1.5-8.5); NEUTROPHILS % 76.3 % (36.0-66.0); PLATELET COUNT, AUTOMATED 187 10^3/uL (150-450)
[2025-06-08 19:03] LABS: PSA SCREENING 0.34 NG/ML (< 4.00)
[2025-06-08 19:05] LABS: ALT/SGPT 14.0 U/L (7.0-40); AST/SGOT 17.0 U/L (<34); CALCIUM LEVEL 8.4 MG/DL (8.3-10.6); CARBON DIOXIDE LEVEL 26.0 MMOL/L (20-31); CHLORIDE LEVEL 101.0 MMOL/L (98-107); CREATININE FOR GFR 2.09 MG/DL (0.70-1.30); GLOMERULAR FILTRATION RATE 29.9 (>35); IRON (FE) 44.0 UG/DL (65-175); PERCENT SATURATION 13.9 % (19.7-50.0); POTASSIUM SERUM 3.8 MMOL/L (3.5-5.1); SODIUM LEVEL 141.0 MMOL/L (136-145)
[2025-06-08 19:06] LABS: PTH INTACT 133.3 PG/ML (18.5-88.0)
[2025-06-08 19:07] LABS: TOTAL 25(OH) VITAMIN D 46.3 NG/ML (20.0-100.0); VITAMIN B12 LEVEL 1217.0 PG/ML (211-911)
[2025-06-08 19:12] LABS: ESTIMATED AVERAGE GLUCOSE 137.0 MG/DL (60-110)
== END ==
LOC: M PLALAB 15:10
PROVIDERS: ATTEND Family Medicine
DX: D50.9 Iron deficiency anemia, unspecified (principal); I50.32 Chronic diastolic (congestive) heart failure; E11.8 Type 2 diabetes mellitus with unspecified complications; E53.8 Deficiency of other specified B group vitamins; E55.9 Vitamin D deficiency, unspecified; Z12.5 Encounter for screening for malignant neoplasm of prostate
CPT/HCPCS: 36415; 80053; 82306; 82607; 83036; 83550; 83880; 83970; 84238; 85025; G0103

== ENCOUNTER 2025-06-14 19:04 | Emergency (ER) | payer MEDICARE ==
[~2025-06-14] VITALS: Ht 172.7 cm; Wt 84.5 kg
[2025-06-14 20:07] LABS: BASO # 0.0 10^3/uL (0.0-0.2); BASO % 0.3 % (0.0-1.0); EOS # 0.1 10^3/uL (0.0-0.5); EOS % 1.5 % (0.0-3.0); LYMPH # 0.6 10^3/uL (1.5-5.0); LYMPH % 7.3 % (24.0-44.0); MONO # 0.9 10^3/uL (0.0-0.8); MONO % 10.8 % (2.0-8.0); NEUTROPHILS # 6.2 10^3/uL (1.5-8.5); NEUTROPHILS % 78.8 % (36.0-66.0); PLATELET COUNT, AUTOMATED 186 10^3/uL (150-450)
[2025-06-14 20:35] LABS: CK-MB VALUE MASS 1.6 NG/ML (<3.6)
[2025-06-14 20:36] LABS: CALCIUM LEVEL 7.9 MG/DL (8.3-10.6); CARBON DIOXIDE LEVEL 22.0 MMOL/L (20-31); CHLORIDE LEVEL 102.0 MMOL/L (98-107); CPK CREATINE PHOSPHOKINASE 40.0 U/L (46-171); CREATININE FOR GFR 2.04 MG/DL (0.70-1.30); GLOMERULAR FILTRATION RATE 30.8 (>35); MB/CK RELATIVE INDEX 4.0 (< OR =4); POTASSIUM SERUM 3.8 MMOL/L (3.5-5.1); SODIUM LEVEL 138.0 MMOL/L (136-145)
[2025-06-14 20:37] LABS: IRON (FE) 53.0 UG/DL (65-175); PERCENT SATURATION 16.6 % (19.7-50.0)
[2025-06-14 21:40] LABS: INR 1.09
[2025-06-14] MEDS: PANTOPRAZOLE 40MG VIAL IV ONE (22:05)
[2025-06-14 22:37] LABS: CK-MB VALUE MASS 1.2 NG/ML (<3.6)
[2025-06-14 22:39] LABS: CPK CREATINE PHOSPHOKINASE 41.0 U/L (46-171); MB/CK RELATIVE INDEX 2.92 (< OR =4)
[2025-06-14 23:00] VITALS: BP 113/57; TEMP 97; O2SAT 99
[2025-06-14 23:15] VITALS: BP 120/60; TEMP 97; O2SAT 100
[2025-06-15 00:55] VITALS: BP 115/58; TEMP 97.1; O2SAT 98
[2025-06-15 00:58] VITALS: BP 115/58
[2025-06-15] MEDS: FUROSEMIDE 20 MG/2 ML VIAL IV ONE (00:58)
[2025-06-15 01:00] VITALS: BP 115/58; O2SAT 98
[2025-06-15 01:05] VITALS: TEMP 97.7
== END 2025-06-15 01:22 | disposition short-term general hospital (02) ==
LOC: M ED 19:04 → EDBD 19:04 → M ED 06-15 01:22
DX: K92.2 Gastrointestinal hemorrhage, unspecified (principal); I45.10 Unspecified right bundle-branch block; I48.91 Unspecified atrial fibrillation; K21.9 Gastro-esophageal reflux disease without esophagitis; E11.9 Type 2 diabetes mellitus without complications; E78.5 Hyperlipidemia, unspecified; I12.9 Hypertensive chronic kidney disease with stage 1 through stage 4 chronic kidney disease, or unspecified chronic kidney disease; F41.9 Anxiety disorder, unspecified; Z79.84 Long term (current) use of oral hypoglycemic drugs; Z79.01 Long term (current) use of anticoagulants; Z79.899 Other long term (current) drug therapy
CPT/HCPCS: 36430; 71045; 80048; 82550; 82553; 83550; 84484; 85025; 85610; 85730; 86850; 86900; 86901; 86920; 93005; 93041; 94760; 96374; 96375; 99285; J1938; J2470; P9016

== ENCOUNTER → 2025-06-30 | Outpatient (CLI) | payer MEDICARE ==
[2025-06-30 14:12] LABS: BASO # 0.0 10^3/uL (0.0-0.2); BASO % 0.4 % (0.0-1.0); EOS # 0.1 10^3/uL (0.0-0.5); EOS % 0.9 % (0.0-3.0); LYMPH # 0.5 10^3/uL (1.5-5.0); LYMPH % 6.8 % (24.0-44.0); MONO # 0.7 10^3/uL (0.0-0.8); MONO % 9.5 % (2.0-8.0); NEUTROPHILS # 6.2 10^3/uL (1.5-8.5); NEUTROPHILS % 81.6 % (36.0-66.0); PLATELET COUNT, AUTOMATED 165 10^3/uL (150-450)
[2025-06-30 14:18] LABS: PSA SCREENING 0.24 NG/ML (< 4.00)
[2025-06-30 14:20] LABS: IRON (FE) 49.0 UG/DL (65-175); PERCENT SATURATION 15.0 % (19.7-50.0)
[2025-06-30 14:21] LABS: ALT/SGPT 17.0 U/L (7.0-40); AST/SGOT 20.0 U/L (<34); CALCIUM LEVEL 8.9 MG/DL (8.3-10.6); CARBON DIOXIDE LEVEL 27.0 MMOL/L (20-31); CHLORIDE LEVEL 103.0 MMOL/L (98-107); CREATININE FOR GFR 1.74 MG/DL (0.70-1.30); GLOMERULAR FILTRATION RATE 37.2 (>35); POTASSIUM SERUM 3.9 MMOL/L (3.5-5.1); SODIUM LEVEL 141.0 MMOL/L (136-145)
[2025-06-30 14:22] LABS: TOTAL 25(OH) VITAMIN D 53.6 NG/ML (20.0-100.0)
[2025-06-30 14:23] LABS: VITAMIN B12 LEVEL 995.0 PG/ML (211-911)
[2025-06-30 14:27] LABS: ESTIMATED AVERAGE GLUCOSE 131.0 MG/DL (60-110)
[2025-06-30 14:34] LABS: PTH INTACT 106.2 PG/ML (18.5-88.0)
== END ==
LOC: M PLALAB 10:13
PROVIDERS: ATTEND Family Medicine
DX: D50.9 Iron deficiency anemia, unspecified (principal); Z12.5 Encounter for screening for malignant neoplasm of prostate; I50.32 Chronic diastolic (congestive) heart failure; E11.8 Type 2 diabetes mellitus with unspecified complications
CPT/HCPCS: 36415; 80053; 82306; 82607; 82728; 83036; 83550; 83880; 83970; 84238; 85025; G0103

== ENCOUNTER 2025-07-28 14:06 | Outpatient (CLI) | payer MEDICARE ==
[~2025-07-28] VITALS: Ht 172.7 cm; Wt 84.5 kg
[~2025-07-28 14:06] MED LIST changes: +ALBUTEROL SULFATE 2.5 MG/0.5 ML INH CONCENTRATE NEB SOLN INH PRN; +EPINEPHrine INJ 1 MG/ML 1ML AMP IM PRN; +diphenhydrAMINE 50 MG/ML VIAL IV PRN
[2025-07-28 14:20] VITALS: BP 120/56; O2SAT 100
[2025-07-28] MEDS: FERRIC CARBOXYMALTOSE 750 MG (VIAL MATE) IN 100ML NS IV ONE (14:39)
[2025-07-28 15:16] VITALS: BP 132/60; O2SAT 99
== END 2025-07-28 15:27 | disposition home or self-care (01) ==
LOC: M INFU 14:06
PROVIDERS: ATTEND Family Medicine
DX: D50.9 Iron deficiency anemia, unspecified (principal)
CPT/HCPCS: 96365; J1439

== ENCOUNTER → 2025-07-31 | Outpatient (CLI) | payer MEDICARE ==
[~2025-07-31] MED LIST changes: -ALBUTEROL SULFATE 2.5 MG/0.5 ML INH CONCENTRATE NEB SOLN INH PRN; -EPINEPHrine INJ 1 MG/ML 1ML AMP IM PRN; -EZET10TA21 PO; +EZET10TA57 PO; -diphenhydrAMINE 50 MG/ML VIAL IV PRN
[2025-07-31 13:08] LABS: BASO # 0.0 10^3/uL (0.0-0.2); BASO % 0.4 % (0.0-1.0); EOS # 0.1 10^3/uL (0.0-0.5); EOS % 1.3 % (0.0-3.0); LYMPH # 0.5 10^3/uL (1.5-5.0); LYMPH % 6.0 % (24.0-44.0); MONO # 1.0 10^3/uL (0.0-0.8); MONO % 11.3 % (2.0-8.0); NEUTROPHILS # 6.7 10^3/uL (1.5-8.5); NEUTROPHILS % 80.2 % (36.0-66.0); PLATELET COUNT, AUTOMATED 142 10^3/uL (150-450)
[2025-07-31 13:10] LABS: INR 1.01
[2025-07-31 13:32] LABS: IRON (FE) 197 UG/DL (65-175); PERCENT SATURATION 60.8 % (19.7-50.0)
[2025-07-31 13:33] LABS: ALT/SGPT 19 U/L (7.0-40); AST/SGOT 21 U/L (<34); CALCIUM LEVEL 9.3 MG/DL (8.3-10.6); CARBON DIOXIDE LEVEL 28 MMOL/L (20-31); CHLORIDE LEVEL 99 MMOL/L (98-107); CREATININE FOR GFR 2.06 MG/DL (0.70-1.30); GLOMERULAR FILTRATION RATE 30.4 (>35); POTASSIUM SERUM 4.8 MMOL/L (3.5-5.1); SODIUM LEVEL 139 MMOL/L (136-145)
== END ==
LOC: M PLALAB 08:43
PROVIDERS: ATTEND Family Medicine
DX: K74.00 Hepatic fibrosis, unspecified (principal); D50.9 Iron deficiency anemia, unspecified; I50.32 Chronic diastolic (congestive) heart failure

== ENCOUNTER → 2025-08-04 | Outpatient (REF) | payer MEDICARE ==
[2025-08-04 10:31] LABS: APPEARANCE, URINE CLEAR (CLEAR); BACTERIA, URINE AUTO NEGATIVE (NEGATIVE); BILIRUBIN, URINE AUTO NEGATIVE (NEGATIVE); BLOOD, URINE BLOOD NEGATIVE (NEGATIVE); GLUCOSE, URINE (UA) AUTO 3+ mg/dL (NEGATIVE); KETONE, URINE AUTO NEGATIVE (NEGATIVE); LEUKOCYTE ESTERASE, URINE AUTO NEGATIVE (NEGATIVE); MUCUS, URINE SMALL (NEGATIVE); NITRITE, URINE AUTO NEGATIVE (NEGATIVE); PROTEIN, URINE AUTO NEGATIVE (NEGATIVE); RBC, URINE AUTO 0 /HPF (0-3); SPECIFIC GRAVITY URINE AUTO 1.009 (1.002-1.035); SQUAMOUS EPITHELIAL CELL UR AU 0 /HPF (0-6); UROBILINOGEN, URINE AUTO 0.2 mg/dL (0.0-2.0); WBC, URINE AUTO 1 /HPF (0-3)
== END ==
LOC: M SFHCPLAZ 10:05
PROVIDERS: ATTEND Family Medicine
DX: N40.1 Benign prostatic hyperplasia with lower urinary tract symptoms (principal)

== ENCOUNTER → 2025-08-27 | Outpatient (CLI) | payer MEDICARE | LOC: M RAD 13:52 → M PLAIMG 13:52 | PROVIDERS: ATTEND Internal Medicine Gastroenterology | DX: D62 Acute posthemorrhagic anemia (principal) ==

== ENCOUNTER → 2025-09-02 | Outpatient (CLI) | payer MEDICARE ==
[2025-09-02 17:41] LABS: BASO # 0.0 10^3/uL (0.0-0.2); BASO % 0.3 % (0.0-1.0); EOS # 0.1 10^3/uL (0.0-0.5); EOS % 1.3 % (0.0-3.0); LYMPH # 0.5 10^3/uL (1.5-5.0); LYMPH % 6.5 % (24.0-44.0); MONO # 1.1 10^3/uL (0.0-0.8); MONO % 14.4 % (2.0-8.0); NEUTROPHILS # 5.9 10^3/uL (1.5-8.5); NEUTROPHILS % 76.3 % (36.0-66.0); PLATELET COUNT, AUTOMATED 243 10^3/uL (150-450)
== END ==
LOC: M PLALAB 15:16
PROVIDERS: ATTEND Internal Medicine Cardiovascular Disease
DX: I48.21 Permanent atrial fibrillation (principal); I50.32 Chronic diastolic (congestive) heart failure

== ENCOUNTER → 2025-09-17 | Outpatient (CLI) | payer MEDICARE | LOC: M RAD 14:19 | PROVIDERS: ATTEND Internal Medicine Gastroenterology | DX: T18.4XXD Foreign body in colon, subsequent encounter (principal); T18.3XXD Foreign body in small intestine, subsequent encounter ==

== ENCOUNTER 2025-10-12 10:15 | Emergency (ER) | payer MEDICARE ==
[~2025-10-12] VITALS: Ht 172.7 cm; Wt 82.1 kg
[2025-10-12 12:55] VITALS: BP 140/65; TEMP 98.2; O2SAT 99
== END 2025-10-12 13:00 | disposition home or self-care (01) ==
LOC: M ED 10:15
DX: S20.211A Contusion of right front wall of thorax, initial encounter (principal); Y92.9 Unspecified place or not applicable; Y93.9 Activity, unspecified; Y99.9 Unspecified external cause status; W01.0XXA Fall on same level from slipping, tripping and stumbling without subsequent striking against object, initial encounter; I48.91 Unspecified atrial fibrillation; K21.9 Gastro-esophageal reflux disease without esophagitis; I10 Essential (primary) hypertension; E78.5 Hyperlipidemia, unspecified; Z79.4 Long term (current) use of insulin; Z79.84 Long term (current) use of oral hypoglycemic drugs; Z79.899 Other long term (current) drug therapy

== ENCOUNTER 2025-10-14 14:33 | Emergency (ER) | payer MEDICARE ==
[~2025-10-14] VITALS: Ht 172.7 cm; Wt 81.8 kg
[2025-10-14 14:37] VITALS: BP 164/66; TEMP 97.9; O2SAT 97
== END 2025-10-14 16:41 | disposition home or self-care (01) ==
LOC: M ED 14:33
DX: S06.0X0A Concussion without loss of consciousness, initial encounter (principal); S00.01XA Abrasion of scalp, initial encounter; Y92.019 Unspecified place in single-family (private) house as the place of occurrence of the external cause; Y93.9 Activity, unspecified; Y99.9 Unspecified external cause status; W01.0XXA Fall on same level from slipping, tripping and stumbling without subsequent striking against object, initial encounter; Z79.4 Long term (current) use of insulin; Z79.84 Long term (current) use of oral hypoglycemic drugs; Z79.899 Other long term (current) drug therapy

== ENCOUNTER → 2025-10-28 | Outpatient (CLI) | payer MEDICARE ==
[2025-10-28 10:58] LABS: BASO # 0.0 10^3/uL (0.0-0.2); BASO % 0.3 % (0.0-1.0); EOS # 0.1 10^3/uL (0.0-0.5); EOS % 0.9 % (0.0-3.0); LYMPH # 0.7 10^3/uL (1.5-5.0); LYMPH % 7.4 % (24.0-44.0); MONO # 0.9 10^3/uL (0.0-0.8); MONO % 9.0 % (2.0-8.0); NEUTROPHILS # 8.0 10^3/uL (1.5-8.5); NEUTROPHILS % 81.5 % (36.0-66.0); PLATELET COUNT, AUTOMATED 172 10^3/uL (150-450)
[2025-10-28 11:29] LABS: IRON (FE) 76 UG/DL (65-175); PERCENT SATURATION 23.3 % (19.7-50.0)
[2025-10-28 13:00] LABS: ALT/SGPT 25 U/L (7.0-40); AST/SGOT 25 U/L (<34); CALCIUM LEVEL 8.8 MG/DL (8.3-10.6); CARBON DIOXIDE LEVEL 28 MMOL/L (20-31); CHLORIDE LEVEL 102 MMOL/L (98-107); CREATININE FOR GFR 1.82 MG/DL (0.70-1.30); GLOMERULAR FILTRATION RATE 35.3 (>35); POTASSIUM SERUM 3.8 MMOL/L (3.5-5.1); SODIUM LEVEL 142 MMOL/L (136-145)
== END ==
LOC: M PLALAB 09:27
PROVIDERS: ATTEND Family Medicine
DX: D50.9 Iron deficiency anemia, unspecified (principal); I50.32 Chronic diastolic (congestive) heart failure; K74.00 Hepatic fibrosis, unspecified